=== PATIENT | female | born 1935 | race Caucasian/White ===

== ENCOUNTER 2017-10-10 19:33 | Inpatient (IN) | payer MEDICARE, OTHER ==
[2017-10-10] MEDS ORDERED: NS 0.9% 1000 ML*IV.FLUID IV ONE (20:15)
[2017-10-10] MEDS ORDERED: Azithromycin IV(*) 500 MG in NS 0.9% 250 ML* 250 ML IVPB ONE (20:17)
[2017-10-10] MEDS ORDERED: methylPREDNISolone 125 MG* 2 ML VIAL IV ONE (20:17)
[2017-10-10] MEDS ORDERED: cefTRIAXone(*) 1 GM in NS 0.9% 50 ML* 50 ML IVPB ONE (20:17)
[2017-10-10] MEDS ORDERED: Albuterol/Ipratropium NEB.SOL* Albuterol 2.5 MG/Ipratropium 0.5 MG 3 ML INH ONE (20:17)
[2017-10-10 20:51] LABS: ABS Basophils 0 10^3/ul (0-0.2); ABS Eosinophils 0 10^3/ul (0-0.6); ABS Lymphocytes 0.6 10^3/ul (1.0-4.8); ABS Monocytes 0.6 10^3/ul (0-0.8); ABS Neutrophils 6.2 10^3/ul (1.5-7.7); ABS Nucleated RBC 0 10^3/ul; Eosinophil % 0.1 % (0-6); Hematocrit 37 % (35-47); Lymphocyte % 7.5 % (25-47); Mean Corpuscular HGB Conc 35 g/dl (31-36); Mean Corpuscular Hemoglobin 33 pg (27-31); Mean Corpuscular Volume 93 fL (80-97); Mean Platelet Volume 8 um3 (7.4-10.4); Nucleated Red Blood Cells % 0.1; Platelet Count 190 10^3/ul (150-450); Red Cell Distribution Width 13 % (10.5-15); White Blood Count 7.4 10^3/ul (3.5-10.8)
[2017-10-10 21:00] LABS: INR 0.91 (0.77-1.02)
[2017-10-10 21:03] LABS: EGFR Non-African American 102.1 (>60)
--- NOTE | 2017-10-10 21:08 | RAD ---
HISTORY: Shortness of breath, cough COMPARISONS: August 01, 2016 VIEWS: 1: frontal portable view of the chest at 8:28 PM FINDINGS: LINES AND TUBES: None. CARDIOMEDIASTINAL SILHOUETTE: The cardiac silhouette is enlarged. The cardiomediastinal silhouette is otherwise normal for portable technique. PLEURA: The costophrenic angles are sharp. No pleural abnormalities are noted. LUNG PARENCHYMA: There is hyperinflation. ABDOMEN: The upper abdomen is clear. There is no subphrenic gas. BONES AND SOFT TISSUES: No bone or soft tissue abnormalities are noted. IMPRESSION: 1. COPD. 2. CARDIOMEGALY.
[2017-10-10] MEDS ORDERED: Aspirin Low Dose CHEW TAB* 81 MG PO ONE (21:12)
[2017-10-10] MEDS ORDERED: Oseltamivir CAP* 75 MG CAP PO ONE (21:25)
--- NOTE | 2017-10-10 21:32 | ED ---
Bret Norman Sixian, scribed for Owen Hagan MD on 10/10/17 at 2015 . Shortness of Breath - History of Current Complaint Chief Complaint: EDUpperRespComplaint Time Seen by Provider: 10/10/17 19:41 Hx Obtained From: Patient Onset/Duration: Gradual Onset, Lasting Weeks, Still Present Aggrevating Factors: Nothing Alleviating Factors: Nothing Associated Signs & Symptoms: Chest Pain w/Cough, Fever, Chills - Allergy/Home Medications Allergies/Adverse Reactions: Allergies Allergy/AdvReac Type Severity Reaction Status Date / Time MS Vitamin B12 [Vitamin B12] Allergy Severe Rash, Verified 10/10/17 19:58 CELLULITIS MS Carbamazepine Allergy Intermediate Hives Verified 10/10/17 19:58 [Carbamazepine] MS Simvastatin [From Zocor] Allergy Intermediate Hives Verified 10/10/17 19:58 MS Atorvastatin Allergy Hives Verified 10/10/17 19:58 [Atorvastatin] ALL STATINS Allergy Hives Uncoded 10/10/17 19:58 PMH/Surg Hx/FS Hx/Imm Hx Endocrine/Hematology History: Denies: Hx Diabetes Cardiovascular History: Reports: Hx Angina, Hx Coronary Artery Disease - CONTROL WITH MEDS, Hx Hypercholesterolemia, Hx Myocardial Infarction, Hx Valvular Heart Disease, Other Cardiovascular Problems/Disorders - 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 1979 HYSTERECTOMY, [facility]. 1981 BILATERAL SALPINGO-OOPHORECTOMY, [facility]. 2010 [place]ARDIAC [place]ER[place] WITH 2 ST[place]AC[place] [facility] [place]est[place] Reactions: No - Immunization History Date of Influenza Vaccine: did not receive Infectious Disease History: No Infectious Disease History: Denies: Traveled Outside the [place] in Last 30 Days - Family History Known Family History: Positive: Cardiac Disease, Hypertension - Social History Alcohol Use: Daily Alcohol Amount: 2 DRINKS PER DAY Substance Use Type: Reports: None Hx Tobacco Use: Yes Smoking Status (MU): Light Every Day Tobacco Smoker Type: Cigarettes Amount Used/How Often: LESS THAN 1/2 PPD Length of Time of Smoking/Using Tobacco: 60 YEARS Have You Smoked in the Last Year: Yes Review of Systems Positive: Chills. Negative: Fever Positive: Shortness Of Breath, Cough Positive: Other - sore chest Musculoskeletal: Negative - ankle swelling Positive: Other - sore chest Positive: Headache All Other Systems Reviewed And Are Negative: Yes Physical Exam - Summary Physical Exam Summary: General: Mildly ill appearing, no pain distress Skin: warm, color reflects adequate perfusion, dry Head: normal Eyes: EOMI, MIKE ENT: normal Neck: supple, nontender Respiratory: CTA, breath sounds present, Rhonchi greater on L than on R Mild respiratory distress Cardiovascular: RRR Abdomen: soft, nontender Bowel: present Musculoskeletal: normal, strength/ROM intact Neurological: normal, sensory/motor intact, A&O x3 Psychological: affect/mood appropriate Triage Information Reviewed: Yes Vital Signs On Initial Exam: Initial Vitals Temp Pulse Resp BP Pulse Ox 99.8 F 89 20 111/68 93 10/10/17 19:40 10/10/17 19:40 10/10/17 19:40 10/10/17 19:40 10/10/17 19:40 Vital Signs Reviewed: Yes Diagnostics - Vital Signs Vital Signs Temp Pulse Resp BP Pulse Ox 10/10/17 20:00 81 23 127/108 93 10/10/17 19:58 86 90 10/10/17 19:57 111/68 10/10/17 19:40 99.8 F 89 20 111/68 93 - Laboratory Lab Results: Lab Results 10/10/17 10/10/17 10/10/17 Range/Units 20:30 20:30 20:30 WBC 7.4 (3.5-10.8) 10^3/ul RBC 4.00 (4.0-5.4) 10^6/ul Hgb 13.0 (12.0-16.0) g/dl Hct 37 (35-47) % MCV 93 (80-97) fL MCH 33 H (27-31) pg MCHC 35 (31-36) g/dl RDW 13 (10.5-15) % Plt Count 190 (150-450) 10^3/ul MPV 8 (7.4-10.4) um3 Neut % (Auto) 83.5 H (38-83) % Lymph % (Auto) 7.5 L (25-47) % [place] % (Auto) 8.5 H (0-7) % Eos % (Auto) 0.1 (0-6) % Baso % (Auto) 0.4 (0-2) % Absolute Neuts (auto) 6.2 (1.5-7.7) 10^3/ul Absolute Lymphs (auto) 0.6 L (1.0-4.8) 10^3/ul Absolute Monos (auto) 0.6 (0-0.8) 10^3/ul Absolute Eos (auto) 0 (0-0.6) 10^3/ul Absolute Basos (auto) 0 (0-0.2) 10^3/ul Absolute Nucleated RBC 0 10^3/ul Nucleated RBC % 0.1 INR (Anticoag Therapy) 0.91 (0.77-1.02) APTT 26.5 (26.0-36.3) seconds Sodium 130 L (133-145) mmol/L Potassium 2.8 L (3.5-5.0) mmol/L Chloride 92 L (101-111) mmol/L Carbon Dioxide 27 (22-32) mmol/L Anion Gap 11 (2-11) mmol/L BUN 15 (6-24) mg/dL Creatinine 0.57 (0.51-0.95) mg/dL Est GFR ( Amer) 131.2 (>60) Est GFR (Non-Af Amer) 102.1 (>60) BUN/Creatinine Ratio 26.3 H (8-20) Glucose 157 H (70-100) mg/dL Lactic Acid (0.5-2.0) mmol/L Calcium 8.7 (8.6-10.3) mg/dL Total Bilirubin 1.00 (0.2-1.0) mg/dL AST 30 (13-39) U/L ALT 25 (7-52) U/L Alkaline Phosphatase 106 H (34-104) U/L Troponin I 0.05 H* (<0.04) ng/mL C-Reactive Protein 145.48 H (< 5.00) mg/L B-Natriuretic Peptide ( - 100) pg/mL Total Protein 6.7 (6.4-8.9) g/dL Albumin 3.4 (3.2-5.2) g/dL Globulin 3.3 (2-4) g/dL Albumin/Globulin Ratio 1.0 (1-3) Lipase < 10 L (11.0-82.0) U/L 10/10/17 10/10/17 Range/Units 20:30 20:30 WBC (3.5-10.8) 10^3/ul RBC (4.0-5.4) 10^6/ul Hgb (12.0-16.0) g/dl Hct (35-47) % MCV (80-97) fL MCH (27-31) pg MCHC (31-36) g/dl RDW (10.5-15) % Plt Count (150-450) 10^3/ul MPV (7.4-10.4) um3 Neut % (Auto) (38-83) % Lymph % (Auto) (25-47) % [place] % (Auto) (0-7) % Eos % (Auto) (0-6) % Baso % (Auto) (0-2) % Absolute Neuts (auto) (1.5-7.7) 10^3/ul Absolute Lymphs (auto) (1.0-4.8) 10^3/ul Absolute Monos (auto) (0-0.8) 10^3/ul Absolute Eos (auto) (0-0.6) 10^3/ul Absolute Basos (auto) (0-0.2) 10^3/ul Absolute Nucleated RBC 10^3/ul Nucleated RBC % INR (Anticoag Therapy) (0.77-1.02) APTT (26.0-36.3) seconds Sodium (133-145) mmol/L Potassium (3.5-5.0) mmol/L Chloride (101-111) mmol/L Carbon Dioxide (22-32) mmol/L Anion Gap (2-11) mmol/L BUN (6-24) mg/dL Creatinine (0.51-0.95) mg/dL Est GFR ( Amer) (>60) Est GFR (Non-Af Amer) (>60) BUN/Creatinine Ratio (8-20) Glucose (70-100) mg/dL Lactic Acid 1.8 (0.5-2.0) mmol/L Calcium (8.6-10.3) mg/dL Total Bilirubin (0.2-1.0) mg/dL AST (13-39) U/L ALT (7-52) U/L Alkaline Phosphatase (34-104) U/L Troponin I (<0.04) ng/mL C-Reactive Protein (< 5.00) mg/L B-Natriuretic Peptide 448 H ( - 100) pg/mL Total Protein (6.4-8.9) g/dL Albumin (3.2-5.2) g/dL Globulin (2-4) g/dL Albumin/Globulin Ratio (1-3) Lipase (11.0-82.0) U/L Result Diagrams: 10/10/17 20:30 10/10/17 20:30 Lab Statement: Any lab studies that have been ordered have been reviewed, and results considered in the medical decision making process. - Radiology CXR Radiology Interpretation Completed By: Radiologist - 1. COPD. 2. CARDIOMEGALY. ED physician has reviewed this radiology report. - EKG 1948 Cardiac Rate: NL EKG Rhythm: Sinus Rhythm - 91 BPM EKG Interpretation: Multiple PVC Course/Dx - Course Course Of Treatment: BP noted and advised to follow up with PCP. Medications reviewed. Allergies noted. ADMIT HOSPITALIST. CRITICAL CARE TIME LESS THAN 30 MINUTES. - Diagnoses Provider Diagnoses: Bronchitis with bronchospasm, Hypoxia, Chest pain, Elevated troponin Discharge - Discharge Plan Condition: Stable Disposition: ADMITTED TO [facility] Referrals: Lorie Warren MD [Primary Care Provider] - Additional Instructions: RETURN TO THE EMERGENCY DEPARTMENT FOR CHANGING OR WORSENING SYMPTOMS. The documentation as recorded by the Bret byrne Sixian accurately reflects the service I personally performed and the decisions made by , Owen Hagan MD.
[2017-10-10] MEDS ORDERED: NS 0.9% 1000 ML* 1,000 ML IV ONE (21:36)
[2017-10-10] MEDS ORDERED: Albuterol/Ipratropium NEB.SOL* Albuterol 2.5 MG/Ipratropium 0.5 MG 3 ML INH PRN (22:45)
[2017-10-11] MEDS: Enoxaparin(*) 40 MG/0.4 ML SYR SUBCUT SCH ×2 (01:24→22:09)
[2017-10-11] MEDS: Phenytoin CAP(*) 100 MG CAP.ER PO SCH ×3 (01:25→22:06)
[2017-10-11] MEDS: Potassium Chlor TAB* 20 MEQ TAB.ER PO SCH ×3 (01:25→22:06)
[2017-10-11 03:48] LABS: Urine Appearance Clear; Urine Blood 1+ (Negative); Urine Color Yellow; Urine Ketones Negative (Negative); Urine Protein Negative (Negative); Urine Urobilinogen Negative (Negative)
[2017-10-11] MEDS: methylPREDNISolone SOD 40 MG* 1 ML VIAL IV SCH ×2 (07:05→19:15)
[2017-10-11] MEDS: Aspirin EC Low Dose* 81 MG TAB.EC PO SCH (08:54)
[2017-10-11] MEDS: Lisinopril TAB* 5 MG PO SCH ×2 (08:54→22:07)
[2017-10-11] MEDS: Ezetimibe TAB* 10 MG PO SCH (08:54)
[2017-10-11] MEDS: Metoprolol Succinate XL TAB* 25 MG PO SCH ×2 (08:54→22:07)
[2017-10-11] MEDS: Oseltamivir CAP* 75 MG CAP PO SCH ×2 (08:55→22:07)
--- NOTE | 2017-10-11 14:10 | PN ---
Subjective Date of Service: 10/11/17 Interval History: Denies chest pain. Denies abd pain. n/v/d c/o shortness of breath, states improved since yesterday. states that she had a coughing episode during the night but coughing seems to better this AM. Family History: Unchanged from Admission Social History: Unchanged from Admission Past Medical History: Unchanged from Admission Objective Active Medications: Albuterol/Ipratropium (Duoneb (Albuterol 2.5 Mg/Ipratropium 0.5 Mg)) 1 neb INH Q4H PRN PRN Reason: SOB/WHEEZING Aspirin (Aspirin Ec Low Dose*) 81 mg PO DAILY [facility] Last Admin: 10/11/17 08:54 Dose: 81 mg Ezetimibe (Zetia Tab*) 10 mg PO QAM [facility] Last Admin: 10/11/17 08:54 Dose: 10 mg Enoxaparin Sodium (Lovenox(*)) 40 mg SUBCUT Q24H [facility] Last Admin: 10/11/17 01:24 Dose: 40 mg Azithromycin 500 mg/ Dextrose 250 mls @ 250 mls/hr IVPB Q24H [facility] Ceftriaxone Sodium 1 gm/ (Sodium Chloride) 50 mls @ 200 mls/hr IVPB Q24H [facility] Lisinopril (Prinivil Tab*) 5 mg PO BID [facility] Last Admin: 10/11/17 08:54 Dose: 5 mg Methylprednisolone Sodium Succinate (Solu-Medrol 40 Mg) 80 mg IV Q12H [facility] Last Admin: 10/11/17 07:05 Dose: 80 mg Metoprolol Succinate (Toprol Xl Tab*) 25 mg PO BID [facility] Last Admin: 10/11/17 08:54 Dose: 25 mg Oseltamivir Phosphate (Tamiflu Cap*) 75 mg PO BID [facility] Last Admin: 10/11/17 08:55 Dose: 75 mg Phenytoin Sodium (Dilantin Cap(*)) 100 mg PO BID [facility] Last Admin: 10/11/17 08:55 Dose: 100 mg Potassium Chloride (Klor Con Er Tab*) 20 meq PO BID [facility] Last Admin: 10/11/17 08:55 Dose: 20 meq Vital Signs - 8 hr 10/11/17 10/11/17 10/11/17 08:00 08:55 12:24 Temperature 98.5 F 98.8 F Pulse Rate 64 66 Respiratory 20 20 18 Rate Blood Pressure 107/51 113/63 (mmHg) O2 Sat by Pulse 96 97 100 Oximetry Oxygen Devices in Use Now: Nasal Cannula Appearance: appears comfortable, no respiratory distress Eyes: No Scleral Icterus Ears/Nose/Mouth/Throat: Clear Oropharnyx, Mucous Membranes Moist Neck: NL Appearance and Movements; NL JVP, Trachea Midline Respiratory: Symmetrical Chest Expansion and Respiratory Effort, - - diminished with crackles to bilat bases Cardiovascular: NL Sounds; No Murmurs; No JVD, No Edema Abdominal: NL Sounds; No Tenderness; No Distention Extremities: No Edema, No Clubbing, Cyanosis Skin: No Rash or Ulcers Neurological: Alert and Oriented x 3, NL Muscle Strength and Tone Nutrition: Taking PO's Result Diagrams: 10/10/17 20:30 10/11/17 05:26 Additional Lab and Data: Lab Results 10/10/17 10/10/17 10/10/17 Range/Units 20:30 20:30 20:30 WBC 7.4 (3.5-10.8) 10^3/ul RBC 4.00 (4.0-5.4) 10^6/ul Hgb 13.0 (12.0-16.0) g/dl Hct 37 (35-47) % MCV 93 (80-97) fL MCH 33 H (27-31) pg MCHC 35 (31-36) g/dl RDW 13 (10.5-15) % Plt Count 190 (150-450) 10^3/ul MPV 8 (7.4-10.4) um3 Neut % (Auto) 83.5 H (38-83) % Lymph % (Auto) 7.5 L (25-47) % [place] % (Auto) 8.5 H (0-7) % Eos % (Auto) 0.1 (0-6) % Baso % (Auto) 0.4 (0-2) % Absolute Neuts (auto) 6.2 (1.5-7.7) 10^3/ul Absolute Lymphs (auto) 0.6 L (1.0-4.8) 10^3/ul Absolute Monos (auto) 0.6 (0-0.8) 10^3/ul Absolute Eos (auto) 0 (0-0.6) 10^3/ul Absolute Basos (auto) 0 (0-0.2) 10^3/ul Absolute Nucleated RBC 0 10^3/ul Nucleated RBC % 0.1 INR (Anticoag Therapy) 0.91 (0.77-1.02) APTT 26.5 (26.0-36.3) seconds Sodium 130 L (133-145) mmol/L Potassium 2.8 L (3.5-5.0) mmol/L Chloride 92 L (101-111) mmol/L Carbon Dioxide 27 (22-32) mmol/L Anion Gap 11 (2-11) mmol/L BUN 15 (6-24) mg/dL Creatinine 0.57 (0.51-0.95) mg/dL Est GFR ( Amer) 131.2 (>60) Est GFR (Non-Af Amer) 102.1 (>60) BUN/Creatinine Ratio 26.3 H (8-20) Glucose 157 H (70-100) mg/dL Lactic Acid (0.5-2.0) mmol/L Calcium 8.7 (8.6-10.3) mg/dL Total Bilirubin 1.00 (0.2-1.0) mg/dL AST 30 (13-39) U/L ALT 25 (7-52) U/L Alkaline Phosphatase 106 H (34-104) U/L Troponin I 0.05 H* (<0.04) ng/mL C-Reactive Protein 145.48 H (< 5.00) mg/L B-Natriuretic Peptide ( - 100) pg/mL Total Protein 6.7 (6.4-8.9) g/dL Albumin 3.4 (3.2-5.2) g/dL Globulin 3.3 (2-4) g/dL Albumin/Globulin Ratio 1.0 (1-3) Lipase < 10 L (11.0-82.0) U/L 10/10/17 10/10/17 Range/Units 20:30 20:30 WBC (3.5-10.8) 10^3/ul RBC (4.0-5.4) 10^6/ul Hgb (12.0-16.0) g/dl Hct (35-47) % MCV (80-97) fL MCH (27-31) pg MCHC (31-36) g/dl RDW (10.5-15) % Plt Count (150-450) 10^3/ul MPV (7.4-10.4) um3 Neut % (Auto) (38-83) % Lymph % (Auto) (25-47) % [place] % (Auto) (0-7) % Eos % (Auto) (0-6) % Baso % (Auto) (0-2) % Absolute Neuts (auto) (1.5-7.7) 10^3/ul Absolute Lymphs (auto) (1.0-4.8) 10^3/ul Absolute Monos (auto) (0-0.8) 10^3/ul Absolute Eos (auto) (0-0.6) 10^3/ul Absolute Basos (auto) (0-0.2) 10^3/ul Absolute Nucleated RBC 10^3/ul Nucleated RBC % INR (Anticoag Therapy) (0.77-1.02) APTT (26.0-36.3) seconds Sodium (133-145) mmol/L Potassium (3.5-5.0) mmol/L Chloride (101-111) mmol/L Carbon Dioxide (22-32) mmol/L Anion Gap (2-11) mmol/L BUN (6-24) mg/dL Creatinine (0.51-0.95) mg/dL Est GFR ( Amer) (>60) Est GFR (Non-Af Amer) (>60) BUN/Creatinine Ratio (8-20) Glucose (70-100) mg/dL Lactic Acid 1.8 (0.5-2.0) mmol/L Calcium (8.6-10.3) mg/dL Total Bilirubin (0.2-1.0) mg/dL AST (13-39) U/L ALT (7-52) U/L Alkaline Phosphatase (34-104) U/L Troponin I (<0.04) ng/mL C-Reactive Protein (< 5.00) mg/L B-Natriuretic Peptide 448 H ( - 100) pg/mL Total Protein (6.4-8.9) g/dL Albumin (3.2-5.2) g/dL Globulin (2-4) g/dL Albumin/Globulin Ratio (1-3) Lipase (11.0-82.0) U/L Assess/Plan/Problems-Billing Assessment: Ms. Manzanares is a 81 y.o female that presented to the emergency room for evaluation of increased shortness of breath and cough. - Patient Problems (1) COPD exacerbation Current Visit: No Status: Acute Code(s): J44.1 - CHRONIC OBSTRUCTIVE PULMONARY DISEASE W (ACUTE) EXACERBATION SNOMED Code(s): 395418976442803 Comment: ~Will continue nebulizers as needed for shortness of breath ~ will continue Solumedrol IV Q hours~ will re-evaluate in AM could change to PO steroids ~ will continue Azithromycin 500 mg IVPB and Ceftriaxone ~ will reevaluate in the AM could change to PO (2) Exposure to influenza Current Visit: Yes Status: Acute Code(s): Z20.828 - CONTACT W AND EXPOSURE TO OTH VIRAL COMMUNICABLE DISEASES SNOMED Code(s): 936865001 Comment: tested positive for Flu ~ will treat with tamiflu 75 mg po BID for 5 days (3) CAD (coronary artery disease) Current Visit: No Status: Chronic Code(s): I25.10 - ATHSCL HEART DISEASE OF [place] CORONARY ARTERY W/O ANG PCTRS SNOMED Code(s): 27605496 Comment: Elevated troponin ~ denies chest pain ~ suspect this is related to demand ischemia r/t to her respiratory illness/ compromise ~ will repeat EKG and Troponin (4) Tobacco abuse Current Visit: No Status: Chronic Code(s): Z72.0 - TOBACCO USE SNOMED Code (s): 020308706 Comment: Patient advised to quit smoking and avoid second hand smoke. (5) Elevated troponin Current Visit: Yes Status: Acute Code(s): R74.8 - ABNORMAL LEVELS OF OTHER SERUM ENZYMES SNOMED Code(s): 669957935 Comment: ~Suspect this is related to demand ischemia related to her ongoing illness~ denies any chest pain at this time. Will add a troponin to this AM labwork ~ down to 0.04 from 0.05 Repeat EKG ~ WNL SR 60 (6) Hypokalemia Current Visit: Yes Status: Acute Code(s): E87.6 - HYPOKALEMIA SNOMED Code( s): 28357811 Comment: ~Potassium 3.4 today ~ will continue Potassium 20 meq BID and give one time dose of 20 meq given her cardiac history we would like to maintain a level at 4.0 (7) DVT prophylaxis Current Visit: No Status: Acute Priority: Medium Code(s): NFX1912 - SNOMED Code(s): 600926821 Comment: Lovenox 40 mg SQ daily (8) Full code status Current Visit: Yes Status: Acute Code(s): Z78.9 - OTHER SPECIFIED HEALTH STATUS SNOMED Code(s): 191799028 Status and Disposition: inpatient
[2017-10-11] MEDS ORDERED: Potassium Chlor TAB* 20 MEQ TAB.ER PO ONE (14:24)
--- NOTE | 2017-10-11 20:14 | HP ---
CC: Dr. Cantor; Dr. Milligan ADMISSION HISTORY AND PHYSICAL: DATE OF ADMISSION: 10/10/17 CHIEF COMPLAINT: Cough. HISTORY OF PRESENT ILLNESS: Ms. Manzanares is an 81-year-old woman, who has been coughing and short of breath for 2 weeks. The shortness of breath progressed and she came to the emergency department with her . She states her has been sick for 3 weeks and he is currently in the process of being admitted to the hospital for positive influenza A and COPD exacerbation. She denies taking the flu shot this year or any year for that matter. The patient is mainly short of breath with exertion, but she becomes short of breath at rest. The cough is largely nonproductive. She denies any chest pain. The patient has been smoking up to about 2 weeks ago, but has quit because of this illness. PAST MEDICAL HISTORY: Includes emphysema and coronary artery disease with 2 stents in the past. PAST SURGICAL HISTORY: Appendectomy. MEDICATIONS ON ADMISSION: 1. Albuterol/ipratropium nebulizer q.4 hours as needed. 2. Aspirin 81 mg p.o. q. day. 3. Zetia 10 mg p.o. q.a.m. 4. Lisinopril 5 mg p.o. b.i.d. 5. Toprol- XL 25 mg p.o. b.i.d. 6. Phenytoin extended release 100 mg p.o. b.i.d. ALLERGIES: CARBAMAZEPINE, VITAMIN B12, SIMVASTATIN, ATORVASTATIN. FAMILY HISTORY: Notable for father of stroke. Sister had metastatic cancer, unknown primary. Mother of natural causes at age 84. 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 She is , with 2 children. She smoked half pack a day for many years until 2 weeks ago up to a pack a day at times. Drinks alcohol occasionally. No recreational drugs. REVIEW OF SYSTEMS: The patient has felt feverish, but has not measured temperature. The patient denies any chest pain or palpitations. The patient denies any hemoptysis. The patient has upper abdominal pain with coughing in the last few days. Denies any nausea, vomiting, or diarrhea. Remainder of her 14- point review of systems is negative other than mentioned in HPI. PHYSICAL EXAMINATION GENERAL: She is an older woman, in no acute distress. VITAL SIGNS: Temperature is 37.6, pulse 87, respirations 23, blood pressure is 132/110, O2 sat is 95%. HEENT: Head is normocephalic, atraumatic. Sclerae anicteric. Pupils are equal , round, and reactive to light and accommodation. Oropharynx is moist, no lesions. NECK: No JVD or carotid bruits. No thyromegaly. LUNGS: Have rales at the right base and diminished breath sounds throughout. HEART: Regular rate and rhythm without murmurs or gallops. ABDOMEN: Soft, nontender, positive bowel sounds. No hepatosplenomegaly. EXTREMITIES: No peripheral edema. Dorsalis pedis pulses 1+ bilaterally. NEUROLOGIC: Cranial nerves II through XII are intact. Motor strength is 5/5 throughout. Deep tendon reflexes are symmetric. SKIN: Exam notable for raised erythematous 3 x 6 cm lesion on the right nur with scaling, I would describe it as a psoriaform rash. DIAGNOSTIC STUDIES/LAB DATA: Sodium 130, potassium 3.8, chloride 92, bicarb 27 , BUN 15, creatinine 0.57, glucose 157, calcium 8.7. AST 30, ALT 25. Procalcitonin 0.2. Lipase less than 10. Troponin 0.05. CRP 1.45. BNP 448. White count 7.4, hemoglobin 13.0, hematocrit 37%, platelets are 190. PTT is 26.5, INR is 0.91. EKG shows normal sinus rhythm, multifocal PVCs with a short run of wide complex tachycardia, likely a VT versus an intermittent intraventricular conduction delay. Chest x-ray shows COPD and cardiomegaly, but no infiltrates. ASSESSMENT AND PLAN: The patient appears to have influenza with pneumonia. Her has documented influenza. So, we will start her on Tamiflu. She has rales in her lung exam, although chest x-ray does not show an infiltrate. So, she will be treated with ceftriaxone and azithromycin for community- acquired pneumonia. The patient also has a chronic obstructive pulmonary disease exacerbation and she has counseled to stay off cigarettes and start intravenous steroids for wheezing. She can also have nebulizers as needed. The patient has a mild troponin elevation. This is likely due to demand ischemia and not myocardial infarction. She will be monitored on telemetry and have serial troponins. The patient has hypokalemia. This will be repleted and rechecked. Code status of the patient was discussed. The patient would not want to be intubated, but would accept a brief period of cardiac resuscitation if necessary. DVT prophylaxis will be with subcutaneous Lovenox. She is high risk due to her pulmonary condition and age. [id number]/[facility] #: [id number] MTDD
[2017-10-11] MEDS: cefTRIAXone(*) 1 GM in NS 0.9% 50 ML* 50 ML IVPB SCH (20:15)
[2017-10-11] MEDS ORDERED: Azithromycin IV(*) 500 MG in D5W 250 ML BAG* 250 ML IVPB SCH (21:00)
[2017-10-11] MEDS ORDERED: Acetaminophen TAB* 325 MG PO PRN (21:55)
[2017-10-11] MEDS: Benzonatate CAP* 100 MG PO PRN (22:05)
[2017-10-12] MEDS: guaiFENesin LIQ* 100 MG/5 ML UDC PO PRN ×3 (03:37→22:18)
[2017-10-12 06:46] LABS: EGFR Non-African American 104.2 (>60)
[2017-10-12] MEDS: Metoprolol Succinate XL TAB* 25 MG PO SCH ×3 (07:59→21:03)
[2017-10-12] MEDS: Potassium Chlor TAB* 20 MEQ TAB.ER PO SCH (08:01)
[2017-10-12] MEDS: Oseltamivir CAP* 75 MG CAP PO SCH ×2 (08:01→21:03)
[2017-10-12] MEDS: Aspirin EC Low Dose* 81 MG TAB.EC PO SCH (08:01)
[2017-10-12] MEDS: Ezetimibe TAB* 10 MG PO SCH (08:01)
[2017-10-12] MEDS: methylPREDNISolone SOD 40 MG* 1 ML VIAL IV SCH ×2 (08:01→20:56)
[2017-10-12] MEDS: Lisinopril TAB* 5 MG PO SCH ×2 (08:02→21:03)
[2017-10-12] MEDS: Phenytoin CAP(*) 100 MG CAP.ER PO SCH ×2 (08:02→21:03)
--- NOTE | 2017-10-12 11:03 | PN ---
Subjective Date of Service: 10/12/17 Interval History: Patient seen and examined at bedside. Denies fever, chills, chest discomfort, N/ V/D. Pt states that she continues to have shortness of breath and a cough that has improved with robitussin. Pt states that she doesn't wear oxygen at home. Tele: Sinus kay, rate 40-70's Family History: Unchanged from Admission Social History: Unchanged from Admission Past Medical History: Unchanged from Admission Objective Active Medications: Acetaminophen (Tylenol Tab*) 650 mg PO Q6H PRN Reason: PAIN Albuterol/Ipratropium (Duoneb (Albuterol 2.5 Mg/Ipratropium 0.5 Mg)) 1 neb INH Q4H PRN Reason: SOB/WHEEZING Aspirin (Aspirin Ec Low Dose*) 81 mg PO DAILY DILIP Benzonatate (Tessalon Cap*) 100 mg PO BID PRN Reason: COUGH Ezetimibe (Zetia Tab*) 10 mg PO QAM DILIP Enoxaparin Sodium (Lovenox(*)) 40 mg SUBCUT Q24H DILIP Guaifenesin (Robitussin*) 5 ml PO Q4H PRN Reason: COUGH Azithromycin 500 mg/ Dextrose 250 mls @ 250 mls/hr IVPB Q24H DILIP Ceftriaxone Sodium 1 gm/ (Sodium Chloride) 50 mls @ 200 mls/hr IVPB Q24H DILIP Lisinopril (Prinivil Tab*) 5 mg PO BID DILIP Methylprednisolone Sodium Succinate (Solu-Medrol 40 Mg) 80 mg IV Q12H DILIP Metoprolol Succinate (Toprol Xl Tab*) 25 mg PO BID DILIP Oseltamivir Phosphate (Tamiflu Cap*) 75 mg PO BID DILIP Phenytoin Sodium (Dilantin Cap(*)) 100 mg PO BID DILIP Potassium Chloride (Klor Con Er Tab*) 20 meq PO BID DILIP Vital Signs - 8 hr 10/12/17 10/12/17 03:50 07:47 Temperature 97.5 F 97.3 F Pulse Rate 57 51 Respiratory 16 16 Rate Blood Pressure 126/65 138/64 (mmHg) O2 Sat by Pulse 98 100 Oximetry Oxygen Devices in Use Now: Nasal Cannula - 0.5L Appearance: NAD, laying in bed Respiratory: Symmetrical Chest Expansion and Respiratory Effort, Clear to Auscultation - , diminished Cardiovascular: NL Sounds; No Murmurs; No JVD, RRR Abdominal: NL Sounds; No Tenderness; No Distention Extremities: No Edema Skin: No Rash or Ulcers Neurological: Alert and Oriented x 3, NL Muscle Strength and Tone Lines/Tubes/Other Access: Clean, Dry and Intact Peripheral IV - site benign Nutrition: Taking PO's Result Diagrams: 10/10/17 20:30 10/12/17 06:05 Additional Lab and Data: Assess/Plan/Problems-Billing Assessment: Ms. Manzanares is a 81 y.o female with PMH significant for COPD and CAD s/p 2 cardiac stents who presented to the emergency room for evaluation of increased shortness of breath and cough. - Patient Problems (1) COPD exacerbation Code(s): J44.1 - CHRONIC OBSTRUCTIVE PULMONARY DISEASE W (ACUTE) EXACERBATION SNOMED Code(s): 509277229545873 Comment: - With suspected CAP - Continue nebulizers as needed for shortness of breath - Continue Solumedrol will change to PO in the AM - Continue Azithromycin (change to PO) and Ceftriaxone (2) Exposure to influenza Code(s): Z20.828 - CONTACT W AND EXPOSURE TO OTH VIRAL COMMUNICABLE DISEASES SNOMED Code(s): 300274699 Comment: - Influenza A/B negative, but suspected to have influenza - tested positive for influenza B - Continue tamiflu (3) Elevated troponin Code(s): R74.8 - ABNORMAL LEVELS OF OTHER SERUM ENZYMES SNOMED Code(s): 479384212 Comment: - Denies chest pain - Troponin 0.04, 0.05, 0.05, 0.04 - Suspect secondary to demand ischemia related to her ongoing illness (4) Hypokalemia Code(s): E87.6 - HYPOKALEMIA SNOMED Code(s): 37081844 Comment: - Resolved - Continue Potassium 20 meq BID, given her cardiac history maintain a level at 4.0 (5) CAD (coronary artery disease) Code(s): I25.10 - ATHSCL HEART DISEASE OF [place] CORONARY ARTERY W/O ANG PCTRS SNOMED Code(s): 76118942 Comment: - Asymptomatic - Continue betablocker, ASA and Zetia (6) Tobacco abuse Code(s): Z72.0 - TOBACCO USE SNOMED Code(s): 693094515 Comment: - Patient advised to quit smoking and avoid second hand smoke. (7) Trigeminal neuralgia Code(s): G50.0 - TRIGEMINAL NEURALGIA SNOMED Code(s): 75252427 Comment: - Continue Dilantin (8) HLD (hyperlipidemia) Code(s): E78.5 - HYPERLIPIDEMIA, UNSPECIFIED SNOMED Code(s): 87139385 Comment: - Continue Zetia (9) DVT prophylaxis Code(s): IIN6503 - SNOMED Code(s): 470034118 Comment: - Lovenox 40 mg SQ daily (10) Full code status Code(s): Z78.9 - OTHER SPECIFIED HEALTH STATUS SNOMED Code(s): 505172109 Status and Disposition: Inpatient. Discharge to home when medically stable.
[2017-10-12] MEDS: cefTRIAXone(*) 1 GM in NS 0.9% 50 ML* 50 ML IVPB SCH (20:55)
[2017-10-12] MEDS: Azithromycin TAB* 250 MG PO SCH (21:02)
[2017-10-12] MEDS: Potassium Chloride LIQUID* 20 MEQ PACKET PO SCH (21:02)
[2017-10-12] MEDS: Benzonatate CAP* 100 MG PO PRN (22:17)
[2017-10-12] MEDS: Enoxaparin(*) 40 MG/0.4 ML SYR SUBCUT SCH (22:18)
[2017-10-13] MEDS: Metoprolol Succinate XL TAB* 25 MG PO SCH ×2 (07:49→20:21)
[2017-10-13] MEDS: Lisinopril TAB* 5 MG PO SCH ×2 (08:28→20:21)
[2017-10-13] MEDS: Ezetimibe TAB* 10 MG PO SCH (08:28)
[2017-10-13] MEDS: Aspirin EC Low Dose* 81 MG TAB.EC PO SCH (08:28)
[2017-10-13] MEDS: predniSONE TAB* 50 MG PO SCH (08:28)
[2017-10-13] MEDS: Phenytoin CAP(*) 100 MG CAP.ER PO SCH ×2 (08:28→20:22)
[2017-10-13] MEDS: Oseltamivir CAP* 75 MG CAP PO SCH ×2 (08:28→20:22)
[2017-10-13] MEDS: Potassium Chloride LIQUID* 20 MEQ PACKET PO SCH (08:28)
[2017-10-13] MEDS: guaiFENesin LIQ* 100 MG/5 ML UDC PO PRN ×2 (14:19→21:53)
--- NOTE | 2017-10-13 14:35 | PN ---
Subjective Date of Service: 10/13/17 Interval History: Patient seen and examined at bedside. Denies fever, chills, chest discomfort, N/ V/D. Pt states that she has shortness of breath at baseline with exertion and her shortness of breath is similar to her baseline. Pt states that she still continues to have a cough. Tele: Sinus rhythm, rate 50-70's Family History: Unchanged from Admission Social History: Unchanged from Admission Past Medical History: Unchanged from Admission Objective Active Medications: Acetaminophen (Tylenol Tab*) 650 mg PO Q6H PRN Reason: PAIN Albuterol/Ipratropium (Duoneb (Albuterol 2.5 Mg/Ipratropium 0.5 Mg)) 1 neb INH Q4H PRN Reason: SOB/WHEEZING Aspirin (Aspirin Ec Low Dose*) 81 mg PO DAILY DILIP Azithromycin (Zithromax Tab*) 250 mg PO DAILY@2100 DILIP Benzonatate (Tessalon Cap*) 100 mg PO BID PRN Reason: COUGH Ezetimibe (Zetia Tab*) 10 mg PO QAM DILIP Enoxaparin Sodium (Lovenox(*)) 40 mg SUBCUT Q24H DILIP Guaifenesin (Robitussin*) 5 ml PO Q4H PRN Reason: COUGH Ceftriaxone Sodium 1 gm/ (Sodium Chloride) 50 mls @ 200 mls/hr IVPB Q24H DILIP Lisinopril (Prinivil Tab*) 5 mg PO BID DILIP Metoprolol Succinate (Toprol Xl Tab*) 25 mg PO BID DILIP Oseltamivir Phosphate (Tamiflu Cap*) 75 mg PO BID DILIP Phenytoin Sodium (Dilantin Cap(*)) 100 mg PO BID DILIP Potassium Chloride (Klor-Con Liquid*) 20 meq PO BID DILIP Prednisone (Deltasone Tab*) 50 mg PO DAILY DILIP Vital Signs - 8 hr 10/13/17 10/13/17 10/13/17 07:42 08:00 11:18 Temperature 97.7 F 97.9 F Pulse Rate 59 61 Respiratory 20 20 16 Rate Blood Pressure 123/69 143/70 (mmHg) O2 Sat by Pulse 98 96 Oximetry Oxygen Devices in Use Now: None Appearance: NAD, sitting up in bed Ears/Nose/Mouth/Throat: Mucous Membranes Moist Respiratory: Symmetrical Chest Expansion and Respiratory Effort, Clear to Auscultation Cardiovascular: NL Sounds; No Murmurs; No JVD, RRR Abdominal: NL Sounds; No Tenderness; No Distention Extremities: No Edema Skin: No Rash or Ulcers Neurological: Alert and Oriented x 3, NL Muscle Strength and Tone Lines/Tubes/Other Access: Clean, Dry and Intact Peripheral IV - site benign Nutrition: Taking PO's Result Diagrams: 10/10/17 20:30 10/12/17 06:05 Additional Lab and Data: Assess/Plan/Problems-Billing Assessment: Ms. Manzanares is a 81 y.o female with PMH significant for COPD and CAD s/p 2 cardiac stents who presented to the emergency room for evaluation of increased shortness of breath and cough. - Patient Problems (1) COPD exacerbation Code(s): J44.1 - CHRONIC OBSTRUCTIVE PULMONARY DISEASE W (ACUTE) EXACERBATION SNOMED Code(s): 636106761280423 Comment: - With suspected CAP - Continue nebulizers as needed for shortness of breath - Continue Prednisone, Azithromycin (change to PO), and Ceftriaxone (2) Exposure to influenza Code(s): Z20.828 - CONTACT W AND EXPOSURE TO OTH VIRAL COMMUNICABLE DISEASES SNOMED Code(s): 160710801 Comment: - Influenza A/B negative, but suspected to have influenza - tested positive for influenza B - Continue tamiflu (3) Elevated troponin Code(s): R74.8 - ABNORMAL LEVELS OF OTHER SERUM ENZYMES SNOMED Code(s): 075589859 Comment: - Denies chest pain - Troponin 0.04, 0.05, 0.05, 0.04 - Suspect secondary to demand ischemia related to her ongoing illness (4) Hypokalemia Code(s): E87.6 - HYPOKALEMIA SNOMED Code(s): 99985636 Comment: - Resolved (5) CAD (coronary artery disease) Code(s): I25.10 - ATHSCL HEART DISEASE OF [place] CORONARY ARTERY W/O ANG PCTRS SNOMED Code(s): 64619485 Comment: - Asymptomatic - Continue betablocker, ASA and Zetia (6) Tobacco abuse Code(s): Z72.0 - TOBACCO USE SNOMED Code(s): 889747973 Comment: - Patient advised to quit smoking and avoid second hand smoke. (7) Trigeminal neuralgia Code(s): G50.0 - TRIGEMINAL NEURALGIA SNOMED Code(s): 31349456 Comment: - Continue Dilantin (8) HLD (hyperlipidemia) Code(s): E78.5 - HYPERLIPIDEMIA, UNSPECIFIED SNOMED Code(s): 53036245 Comment: - Continue Zetia (9) DVT prophylaxis Code(s): ELO3283 - SNOMED Code(s): 422210527 Comment: - Lovenox 40 mg SQ daily (10) Full code status Code(s): Z78.9 - OTHER SPECIFIED HEALTH STATUS SNOMED Code(s): 195566949 Status and Disposition: Inpatient. Discharge to home when medically stable, suspect she will be ready for discharge to home in the AM.
[2017-10-13] MEDS: cefTRIAXone(*) 1 GM in NS 0.9% 50 ML* 50 ML IVPB SCH (20:14)
[2017-10-13] MEDS: Azithromycin TAB* 250 MG PO SCH (20:22)
[2017-10-13] MEDS: Benzonatate CAP* 100 MG PO PRN (21:53)
[2017-10-13] MEDS: Enoxaparin(*) 40 MG/0.4 ML SYR SUBCUT SCH (21:54)
[2017-10-14] MEDS: predniSONE TAB* 50 MG PO SCH (08:51)
[2017-10-14] MEDS: Oseltamivir CAP* 75 MG CAP PO SCH (08:51)
[2017-10-14] MEDS: Aspirin EC Low Dose* 81 MG TAB.EC PO SCH (08:51)
[2017-10-14] MEDS: Ezetimibe TAB* 10 MG PO SCH (08:51)
[2017-10-14] MEDS: Metoprolol Succinate XL TAB* 25 MG PO SCH (08:51)
[2017-10-14] MEDS: Lisinopril TAB* 5 MG PO SCH (08:51)
[2017-10-14] MEDS: Phenytoin CAP(*) 100 MG CAP.ER PO SCH (08:51)
--- NOTE | 2017-10-14 09:16 | PN ---
Subjective Date of Service: 10/14/17 Interval History: Patient seen and examined at bedside. Denies fever, chills, shortness of breath , chest discomfort, N/V/D. Pt states that she is feeling much better and is anxious for discharge to home today. Family History: Unchanged from Admission Social History: Unchanged from Admission Past Medical History: Unchanged from Admission Objective Active Medications: Acetaminophen (Tylenol Tab*) 650 mg PO Q6H PRN Reason: PAIN Albuterol/Ipratropium (Duoneb (Albuterol 2.5 Mg/Ipratropium 0.5 Mg)) 1 neb INH Q4H PRN Reason: SOB/WHEEZING Aspirin (Aspirin Ec Low Dose*) 81 mg PO DAILY DILIP Azithromycin (Zithromax Tab*) 250 mg PO DAILY@2100 DILIP Benzonatate (Tessalon Cap*) 100 mg PO BID PRN Reason: COUGH Ezetimibe (Zetia Tab*) 10 mg PO QAM DILIP Enoxaparin Sodium (Lovenox(*)) 40 mg SUBCUT Q24H DILIP Guaifenesin (Robitussin*) 5 ml PO Q4H PRN Reason: COUGH Ceftriaxone Sodium 1 gm/ (Sodium Chloride) 50 mls @ 200 mls/hr IVPB Q24H DILIP Lisinopril (Prinivil Tab*) 5 mg PO BID DILIP Metoprolol Succinate (Toprol Xl Tab*) 25 mg PO BID DILIP Oseltamivir Phosphate (Tamiflu Cap*) 75 mg PO BID DILIP Phenytoin Sodium (Dilantin Cap(*)) 100 mg PO BID DILIP Prednisone (Deltasone Tab*) 50 mg PO DAILY DILIP Oxygen Devices in Use Now: None Appearance: NAD, sitting up in a chair Ears/Nose/Mouth/Throat: Mucous Membranes Moist Respiratory: Symmetrical Chest Expansion and Respiratory Effort, Clear to Auscultation Cardiovascular: NL Sounds; No Murmurs; No JVD, RRR Abdominal: NL Sounds; No Tenderness; No Distention Extremities: No Edema Skin: No Rash or Ulcers Neurological: Alert and Oriented x 3, NL Muscle Strength and Tone Lines/Tubes/Other Access: Clean, Dry and Intact Peripheral IV - site benign Nutrition: Taking PO's Result Diagrams: 10/10/17 20:30 10/12/17 06:05 Additional Lab and Data: Assess/Plan/Problems-Billing Assessment: Ms. Manzanares is a 81 y.o female with PMH significant for COPD and CAD s/p 2 cardiac stents who presented to the emergency room for evaluation of increased shortness of breath and cough. - Patient Problems (1) COPD exacerbation Code(s): J44.1 - CHRONIC OBSTRUCTIVE PULMONARY DISEASE W (ACUTE) EXACERBATION SNOMED Code(s): 473886682479902 Comment: - With suspected CAP - Continue nebulizers as needed for shortness of breath - Continue Prednisone, Azithromycin, and Ceftriaxone (2) Exposure to influenza Code(s): Z20.828 - CONTACT W AND EXPOSURE TO OTH VIRAL COMMUNICABLE DISEASES SNOMED Code(s): 663537586 Comment: - Influenza A/B negative, but suspected to have influenza - tested positive for influenza B - Continue tamiflu (3) Elevated troponin Code(s): R74.8 - ABNORMAL LEVELS OF OTHER SERUM ENZYMES SNOMED Code(s): 243066481 Comment: - Denies chest pain - Troponin 0.04, 0.05, 0.05, 0.04 - Suspect secondary to demand ischemia related to her ongoing illness (4) Hypokalemia Code(s): E87.6 - HYPOKALEMIA SNOMED Code(s): 00341324 Comment: - Resolved (5) CAD (coronary artery disease) Code(s): I25.10 - ATHSCL HEART DISEASE OF [place] CORONARY ARTERY W/O ANG PCTRS SNOMED Code(s): 03656250 Comment: - Asymptomatic - Continue betablocker, ASA and Zetia (6) Tobacco abuse Code(s): Z72.0 - TOBACCO USE SNOMED Code(s): 551791340 Comment: - Patient advised to quit smoking and avoid second hand smoke. (7) Trigeminal neuralgia Code(s): G50.0 - TRIGEMINAL NEURALGIA SNOMED Code(s): 47267478 Comment: - Continue Dilantin (8) HLD (hyperlipidemia) Code(s): E78.5 - HYPERLIPIDEMIA, UNSPECIFIED SNOMED Code(s): 57190240 Comment: - Continue Zetia (9) DVT prophylaxis Code(s): QXP9838 - SNOMED Code(s): 167305610 (10) Full code status Code(s): Z78.9 - OTHER SPECIFIED HEALTH STATUS SNOMED Code(s): 539159767 Status and Disposition: Inpatient. Stable for discharge to home today.
[2017-10-14 09:42] VITALS: BP 132/69
[2017-10-14] MEDS ORDERED: cefTRIAXone(*) 1 GM in NS 0.9% 50 ML* 50 ML IVPB ONE (10:12)
[2017-10-14] MEDS ORDERED: Azithromycin TAB* 250 MG PO ONE (10:12)
--- NOTE | 2017-10-15 13:52 | DS ---
CC: Lorie Cantor MD * DISCHARGE SUMMARY: DATE OF ADMISSION: 10/10/17 DATE OF DISCHARGE: 10/14/17 ATTENDING PHYSICIAN: Luis Fernando Harris MD * (dictated by Arabella Araujo NP). PRIMARY CARE PROVIDER: Lorie Cantor MD PRIMARY DIAGNOSES: 1. Suspected influenza, unconfirmed by rapid flu swab. 2. Hypokalemia, resolved. 3. Hypertroponinemia, suspect secondary to demand ischemia. 4. Chronic obstructive pulmonary disease exacerbation. 5. Community-acquired pneumonia. SECONDARY DIAGNOSES: 1. History of coronary artery disease. 2. Tobacco abuse. 3. Trigeminal neuralgia. 4. Hyperlipidemia. STUDIES WHILE IN THE HOSPITAL: Chest x-ray on 10/10/17. Radiologist's impression: COPD, cardiomegaly. DISCHARGE MEDICATIONS: New home medications: 1. Tamiflu 75 mg oral twice daily for 2 more doses. 2. Prednisone 50 mg oral daily on 10/15/17, followed by 40 mg oral for 3 days, followed by 30 mg oral for 3 days, followed by 20 mg oral for 3 days, followed by 10 mg oral for 3 days, and then stop. Continued home medications: 1. Tessalon 100 mg oral twice daily as needed for cough. 2. Zetia 10 mg oral every morning. 3. Dilantin 100 mg oral twice daily. 4. Lisinopril 5 mg oral twice daily. 5. Metoprolol succinate XL 25 mg oral twice daily. 6. Aspirin 81 mg oral daily. 7. Albuterol/Atrovent nebs 1 neb inhalation every 4 hours as needed for shortness of breath. HISTORY OF PRESENT ILLNESS/HOSPITAL COURSE: Ms. Manzanares is an 81-year-old female with past medical history significant for COPD, coronary artery disease, status post previous cardiac stenting, who presented to the emergency room with her , complaining of coughing and shortness of breath for 2 weeks. The patient reported that her had also been sick for 3 weeks and he was also being admitted to the hospital for positive influenza B and COPD exacerbation. The patient did not receive a flu shot this year. She reported shortness of breath mostly with exertion, but also had complaints of shortness of breath at rest. Her cough was mostly nonproductive. She denied any chest pain. She had been smoking up until the onset of her symptoms approximately 2 weeks prior to her presentation, but had stopped smoking due to her acute illness. While in the emergency room, she had a chest x-ray showing no acute finding. She had an EKG showing a sinus rhythm and PVCs and short run of a wide complex tachycardia, likely V-tach versus an intermittent intraventricular conduction delay. Her procalcitonin was 0.2. Her troponin was 0.05. CRP 1.45. Hospitalists were asked to evaluate the patient for admission. During the patient's hospitalization, she was treated for influenza. Although she tested negative, it was felt that due to her having it, she likely also had it and tested and had a false negative. She was also treated for pneumonia with ceftriaxone and IV azithromycin. She was felt to have a community-acquired pneumonia. She also felt to have a COPD exacerbation, this was treated with azithromycin and initially IV steroids, they were converted to oral prednisone. She had nebulizer. She continued to complain of a cough, received Tessalon Perles and guaifenesin as needed for this. Additionally, she was noted to have a mildly elevated troponin, this peaked at 0.05, it was suspected to be secondary to demand ischemia in the setting of her acute illness. She also had an episode of hypokalemia that resolved. The patient was feeling better and ready for discharge to home. Ms. Manzanares is stable for discharge to home today. Vital signs are follows: Temperature 98.0, heart rate 61, respiratory rate 16, O2 sat 95% on room air, blood pressure 132/69. DISCHARGE PLAN: In regards to the patient's community-acquired pneumonia, she will receive a dose of IV ceftriaxone and IV azithromycin just prior to discharge, completing a 5-day course of antibiotics. I do not feel that she needs to be continued on antibiotics at discharge. She will be continued on a prednisone taper for her COPD exacerbation. She has been instructed to take 50 mg oral tomorrow morning, followed by 40 mg oral daily for 3 days, followed by 30 mg daily for 3 days, followed by 20 mg oral daily for 3 days, and 10 mg oral daily for 3 days and then stop. She will be continued on Tessalon Perles that she reports already having at home every 12 hours as needed for cough. Additionally for completion of her influenza, she needs to take 2 more doses of Tamiflu including 1 tonight and 1 in the morning. She has been resumed on her other usual medications. She has a followup appointment with Dr. Cantor on at 12:30 p.m. She has been asked to return to the emergency room for any increased shortness of breath above her baseline or chest discomfort. POINTS OF DISCUSSION AT FOLLOWUP: Please continue to encourage the patient to stop smoking. Consider sending her for Pulmonology consult if she continues to complain of shortness of breath. She is not currently on any maintenance treatment, she may benefit from being placed on such as Spiriva or Dulera. This is a summarized report of a complex medical history and hospital stay. For further details, please see the entire medical record. TIME SPENT: Time for this discharge was approximately 50 minutes, greater than half of that was spent with the patient and her discussing discharge plans and instructions. CONDITION ON DISCHARGE: Stable. ARABELLA PRITCHARD NP [id number]/[facility] #: [id number] ZAINA
== END 2017-10-14 12:00 | disposition home or self-care (01) | DRG 194 ==
LOC: ED 19:33 → MEDTELE 22:13
PROVIDERS: ADMIT Internal Medicine; ATTEND Internal Medicine
DX: J10.00 Influenza due to other identified influenza virus with unspecified type of pneumonia (principal); J44.1 Chronic obstructive pulmonary disease with (acute) exacerbation; I24.8 Other forms of acute ischemic heart disease; E87.6 Hypokalemia; R74.8 Abnormal levels of other serum enzymes; I25.10 Atherosclerotic heart disease of native coronary artery without angina pectoris; G50.0 Trigeminal neuralgia; E78.5 Hyperlipidemia, unspecified; F17.210 Nicotine dependence, cigarettes, uncomplicated; Z95.5 Presence of coronary angioplasty implant and graft; Z79.82 Long term (current) use of aspirin; Z79.899 Other long term (current) drug therapy; Z88.8 Allergy status to other drugs, medicaments and biological substances; Z82.3 Family history of stroke; Z80.9 Family history of malignant neoplasm, unspecified
CPT/HCPCS: 36415; 71045; 80048; 80053; 80185; 81003; 81015; 81270; 82668; 83605; 83690; 83735; 83880; 84145; 84484; 85025; 85610; 85730; 86140; 87040; 87502; 93005; 94640; 99285; 99406; A9270-GY; J0456; J0696; J1650; J2920; J2930; J7512

== ENCOUNTER 2017-12-14 11:45 | Observation (INO) | payer MEDICARE ==
[2017-12-14] MEDS ORDERED: Diazepam TAB(*) 5 MG ONE (12:38)
[2017-12-14] MEDS ORDERED: ceFAZolin 2 GM PREMIX (*) 2 GM/50 ML BAG IVPB ONE (13:00)
[2017-12-14] MEDS ORDERED: ceFAZolin VIAL 1 GM in NS *SYRINGE * * 10 ML ONE (13:00)
[2017-12-14] MEDS ORDERED: Lidocaine 1% INJ* 10 MG/ML 30 ML SDV ONE (13:09)
[2017-12-14] MEDS ORDERED: fentaNYL* 50 MCG/ML 2 ML VIAL (100 MCG VIAL) ONE (13:09)
[2017-12-14] MEDS ORDERED: Midazolam* 1 MG/ML 5 ML VIAL (5 MG) ONE (13:09)
[2017-12-14] MEDS ORDERED: oxyCODONE/Acetamin 5/325 MG* TAB PO PRN (14:36)
[2017-12-14] MEDS ORDERED: Acetaminophen TAB* 325 MG PO PRN (14:36)
--- NOTE | 2017-12-14 19:03 | RAD ---
INDICATION: Status post device implantation COMPARISON: Most recent chest x-ray dated October 10, 2017 TECHNIQUE: Single AP portable view of the chest was obtained. FINDINGS: Image quality is compromised due to the relative inferiority of a portable chest x-ray. The patient is status post left upper chest cardiac pacemaker with 2 leads overlying the heart. Surgical skin samantha are noted below the lateral left clavicle. The heart and mediastinum exhibit normal size and contour. Similar to prior chest x-rays the lungs appear hyperaerated. There is no pneumothorax. Visualized bones are normal for the patient's age. IMPRESSION: No acute finding status post left upper chest cardiac pacemaker implantation.
[2017-12-14] MEDS: Metoprolol Succinate XL TAB* 25 MG PO SCH (21:36)
[2017-12-14] MEDS: Lisinopril TAB* 5 MG PO SCH (21:36)
[2017-12-14] MEDS: Phenytoin CAP(*) 100 MG CAP.ER PO SCH (21:36)
[2017-12-14] MEDS: Heparin VIAL(*) 5000 UNITS/ML VIAL (FIVE THOUSAND) SUBCUT SCH (21:38)
[2017-12-15] MEDS: Heparin VIAL(*) 5000 UNITS/ML VIAL (FIVE THOUSAND) SUBCUT SCH (05:23)
[2017-12-15 07:42] VITALS: BP 134/73
[2017-12-15] MEDS: Lisinopril TAB* 5 MG PO SCH (08:55)
[2017-12-15] MEDS: Phenytoin CAP(*) 100 MG CAP.ER PO SCH (08:55)
[2017-12-15] MEDS: Metoprolol Succinate XL TAB* 25 MG PO SCH (08:55)
[2017-12-15] MEDS ORDERED: Aspirin EC TAB* 81 MG TAB.EC PO SCH (09:00)
[2017-12-15] MEDS ORDERED: Ezetimibe TAB* 10 MG PO SCH (09:00)
--- NOTE | 2017-12-15 09:46 | RAD ---
INDICATION: Status post left cardiac pacer implantation COMPARISON: Similar chest x-ray acquired December 14, 2017 TECHNIQUE: PA and lateral views of the chest were obtained. FINDINGS: Again seen is a left upper chest cardiac pacemaker with 2 leads overlying the heart. The heart and mediastinum are normal in size and contour. The lungs are hyperaerated. There is no pneumothorax. Visualized bones are normal for the patient's age. There is no radiographic evidence of free air beneath the diaphragm IMPRESSION: NO ACUTE CHEST X-RAY FINDINGS STATUS POST LEFT UPPER CHEST CARDIAC PACEMAKER IMPLANTATION.
--- NOTE | 2017-12-15 12:08 | OP ---
DATE OF OPERATION: 12/14/17 - ROOM #442 DATE OF : 37 SURGEON: Torey Barkley MD ANESTHESIA: Local anesthesia with conscious sedation. PRE-OP DIAGNOSIS: Tachy-kay syndrome, sick sinus syndrome. POST-OP DIAGNOSIS: Tachy-kay syndrome, sick sinus syndrome. OPERATIVE PROCEDURE: Dual chamber pacemaker implantation. ESTIMATED BLOOD LOSS: Nil. COMPLICATIONS: None. INDICATIONS: The patient is an 82-year-old female with a history of tachycardia , who has been followed by Dr. Milligan. The patient had a Holter monitor, which showed evidence of bradycardia, in addition to her history of tachycardia. Permanent pacemaker implantation was recommended based on the result of her Holter monitor. DESCRIPTION OF PROCEDURE: The patient was brought to the procedure room in a fasting state. Informed consent had been obtained prior to the procedure. All labs were reviewed. The patient was placed supine on the procedure table. Her left anterior chest was prepped and draped in usual fashion. 1% Lidocaine was for local anesthesia. Under echo guidance, the axillary vein was entered via a modified Seldinger technique and a guidewire was placed. A 3-cm incision was made in the pectoral area. Blunt dissection was carried down to the pectoral fascia. A small pocked was fashioned for the pacemaker. Over the guidewire, a 7 [place] sheath introducer was placed through which another guidewire was placed and then the sheath was removed. Over the first guidewire, a 7 [place] sheath introducer was placed through which a right ventricular lead was advanced to the RV apex. The right ventricular lead is a Medtronic model 5076, serial #[id number]. It had an R- wave sensitivity of 4.1, impedance 1240 Ohms, threshold 1 volt at 0.5 milliseconds. The ventricular lead was sutured with pectoral fascia. Over the second guidewire, a 7 [place] sheath introducer was placed through which a right atrial lead was advanced to the high right atrium The right atrial lead is a Medtronic model 5076, serial # [id number]. It had P- wave sensitivity of 2, impedance 576 Ohms, threshold 1.9 volt at 0.5 milliseconds. The atrial lead was sutured to the pectoral fascia. The pocket was flushed. The ventricular and atrial leads were attached appropriately to a generator. The generator is a Medtronic model W1DR01, serial #[id number]. The device was placed in the pocket. The surgical incision was closed in 3 layers. The device was tested via an external analyzer and noted to be functioning normally. [id number]/[facility] #: [id number] MTDD
--- NOTE | 2017-12-16 17:37 | DS ---
CC: Dr. Milligan; Dr. Lorie Cantor * DISCHARGE SUMMARY: DATE OF ADMISSION: 12/14/17 DATE OF DISCHARGE: 12/15/17 INDICATION FOR ADMISSION: Pacemaker implantation. Please see my admission history and physical for details of her presentation. Patient is an 82-year-old female, followed by Dr. Milligan, who is having episodes of tachycardia. Recent Holter monitor showed runs of tachycardia as well as bradycardia. Permanent pacemaker was recommended for maximization of medical therapy. Patient underwent dual chamber pacemaker implantation yesterday. She had a Medtronic dual chamber MRI device implanted. Please see that operative note for details. Patient was admitted to the hospital overnight. She was observed overnight. This morning, she underwent a chest x-ray and a pacemaker interrogation. Pacemaker was found to be functioning normally. Her chest x- ray was unremarkable. PHYSICAL EXAMINATION: Vital signs were stable. Height 68 inches, weight 128 pounds, blood pressure 130/84, respiratory rate is 18. She was afebrile. Lungs are clear to auscultation. Cardiac Exam: S1, S2 without any murmurs, rubs, or gallops. Her pacemaker site is stable. There was minimal ecchymosis. There is no hematoma. There is erythema. Pacemaker interrogation is an [place] XT from [employer]. Its atrial lead had a P - wave sensitivity of 3.6, impedance 399 ohms, threshold 0.5 volts at 0.4 milliseconds. Right ventricular lead had a sensing threshold of 6.4, impedance 779 ohms, threshold 0.5 volts at 0.4 milliseconds. She was in AFib 10% of the time. She is atrial paced 43% of the time. DISCHARGE MEDICATIONS: 1. Lisinopril 5 mg a day. 2. Metoprolol succinate 50 mg b.i.d. 3. Phenytoin sodium 100 mg a day. 4. Zetia 10 mg a day. 5. Keflex 500 mg 3 times a day for 3 days. 6. Aspirin 81 mg a day. FOLLOWUP: The patient will follow up in my office in 1 week. [id number]/[facility] #: [id number] MTDD
== END 2017-12-15 10:10 | disposition home or self-care (01) ==
LOC: CHICATH 11:45 → MEDTELE 14:37
PROVIDERS: ADMIT Specialist; ATTEND Specialist
DX: I49.5 Sick sinus syndrome (principal); R00.0 Tachycardia, unspecified; Z95.0 Presence of cardiac pacemaker; R42 Dizziness and giddiness; R00.2 Palpitations; I25.10 Atherosclerotic heart disease of native coronary artery without angina pectoris; Z72.0 Tobacco use; Z95.5 Presence of coronary angioplasty implant and graft; E78.5 Hyperlipidemia, unspecified; G50.0 Trigeminal neuralgia; L03.90 Cellulitis, unspecified; I25.2 Old myocardial infarction; I11.9 Hypertensive heart disease without heart failure
CPT/HCPCS: 33208; 71045; 71046; 93005; 99156; 99157; A9270-GY; C1785; C1898; G0378; J0690; J1644; J2250; J3010

== ENCOUNTER 2019-01-28 14:51 | Emergency (ER) | payer MEDICARE ==
--- OUTSIDE RECORDS SUMMARY | 2019-01-28 15:14 | XMS REPORT | Continuity of Care Document ---
:1935 External Reference #:[id number] Author Name Prashanth Penaloza MD Address [address] [place] [address] Care Team Providers Name Role Phone Lorie Cantor M.D., R.DMarilin Primary Care Physician Unavailable Payers Date Identification Numbers Payment Provider Subscriber Effective: 2014 Policy Number: [id number] [employer] Nuzhat Manzanares Expires: 2016 PayID: [id number] [employer] [address] [address] [place] [address] Policy Number: [id number] [employer] Medicare Ppo Nuzhat Manzanares Group Number: [id number] [address] PayID: [id number] [place] [address] Problems Active Problems Provider Date Trigeminal neuralgia Sierra Thakkar M.D. Onset: 12/19/2011 Family History Date Family Member(s) Observation Comments : (age 92 Years) Father due to Unknown Causes : (age 84 Years) Mother due to Unknown Causes First Sister due to lung cancer () Social History Type Date Description Comments Sex Unknown Lives With Spouse Lives With Víctor Manzanares Tobacco Use Start: Unknown Patient is a current cigarette smoker, smokes every day Tobacco Use Start: Unknown Currently smokes 1-5 Has smoked for 60 years Cigarettes Daily Smoking Status Reviewed: 09/28/18 Currently smokes 1-5 Has smoked for 60 years Cigarettes Daily ETOH Use Currently consumes alcohol 2 to 3 drinks a day Tobacco Use Start: Unknown Patient is a current 7-10 per day smoker, smokes every day Allergies, Adverse Reactions, Alerts Active Allergies Reaction Severity Comments Date Simvastatin rash 12/23/2011 Zocor 02/14/2014 Carbamazepine 02/14/2014 Vitamin B12 12/28/2015 Medications Active Medications SIG Qnty Indications Ordering Date Provider Omeprazole 1 by mouth every 20caps R10.9 Prashanth 01/24/[address] nichelle Penaloza MD Levofloxacin 1 po daily 7tabs J44.1 Lorie Cantor, 10/06/2018 500mg Tablets Fariha RCatina Benzonatate 1-2 by mouth 20caps Lorie Cantor, 09/27/2018 100mg Capsules three times a day Fariha RCatina as needed cough Sphygmomanometer monitor bp biw or 1units I10 [address] 05/20/2013 Aneroid as indicated, Fariha Thakkar [facility] recommend omron Phenytoin Sodium Take One Capsule 90caps G50.0 Lorie Cantor, 01/02/2012 Extended By Mouth Three John Fried 100mg Capsules Times A Day as Needed For Trigeminal Neuralgia Pain Aspir-[address] 12/19/[address] Bijan M.D. Zetia 1 po qd [place], 12/19/2011 10mg Tablets Johnna L Metoprolol Tartrate take two tablets [address] 12/19/2011 25mg by mouth twice Fariha Thakkar Tablets daily Nitroglycerin one tablet sl q [address] 12/19/2011 0.4mg Tablets min x 3 prn chest Fariha Thakkar Sub pain Lisinopril one po bid Maghaydah, 5mg Tablets MD Elise Joinerquvaishali Unknown 2.5mg Tablets Javier Charles, 120mg Caps ADELINE ROBLES 24HR History Medications Prednisone 1 tablet daily for 5tabs Ansley Hyman 09/28/2018 - 50mg 5 days with food Fariha Cordova 01/24/2019 Tablets for copd exacerbation Tizanidine HCL 1 by mouth every 10caps M54.5 Ansley Hyman 09/28/2018 - 4mg night at bedtime as Fariha Cordova 09/30/2018 Capsules Needed For Muscle Spasm Guaiatussin ac 5 milliliters by 118ml Lorie Cantor, 09/27/2018 - mouth tid as needed Fariha, R.D. 09/28/2018 100-10mg/5ML Syrup Prednisone 1 tab by mouth 3tabs J20.9 Prashanth 02/16/2018 - 50mg daily for 3 days MD Ca 09/28/2018 Tablets Azithromycin take 2 tablets by 6tabs J20.9 Ansley PMarilin 02/16/2018 - 250mg mouth one time then Fariha Cordova 01/24/2019 Tablets take one daily for 4 days Ipratropium inhale the contents 100vials Lorie Cantor, 11/04/2017 - [place]/Albuterol of 1 vial via M.DMarilin, R.D. 02/16/2018 Sulfate nebulizer two times a day for breathing 0.5-2.5(3)mg/3ML Solution Benzonatate 1-2 by mouth three 45caps J06.9 Lorie Cantor, 10/08/2017 - 100mg times a day as Joni.Darrick, R.D. 10/26/2017 Capsules needed cough Doxycycline 1 tab by mouth 14tabs J06.9 Lorie Cantor, 10/08/2017 - Monohydrate twice a day Joni.Darrick, R.D. 10/26/2017 100mg Tablets Vistaril 1 po bid 60caps R21 Lorie Cantor, 08/14/2017 - 25mg Fariha, R.D. 02/16/2018 Capsules Azithromycin 2 by mouth today 6tabs J20.9 Lorie Cantor, 07/02/2015 - 250mg then 1 by mouth Joni.Darrick, R.D. 08/15/2015 Tablets daily for 4 days Cephalexin 1 tablet by mouth 30caps 682.6 Laxmi Riddle, 02/20/2015 - 500mg three times a day x [facility] 07/02/2015 Capsules 10 days Mupirocin apply a small 22gm 682.6 Laxmi Riddle, 02/20/2015 - 2% Ointment amount to right leg [facility] 07/02/2015 wounds daily Plavix [address] 12/19/2011 - 75mg Tablets Fariha Thakkar 01/31/2014 Carbamazepine one half po qam,and 60tabs 350.[address] 12/19/2011 - 200mg one half po qpm. Fariha Thakkar 01/02/2012 Tablets Prednisone Unknown - 20mg 05/20/2013 Tablets Immunizations CPT Code Status Date Vaccine Lot # [id number] Given 06/09/2018 Influenza Virus Vaccine, Quadrivalent, 3 Yr > [id number] Quad, Preserv Free [id number] Given 05/20/2013 Pneumovax 23 (PPSV23) 65+ years or high risk 2 to [id number] 65 year old Vital Signs Date Vital Result Comment 01/24/2019 9:46am Weight 122.00 lb Weight 55.339 kg BP Systolic 140 mmHg BP Diastolic 72 mmHg Heart Rate 64 /min Body Temperature 98.6 F Respiratory Rate 16 /min O2 % BldC Oximetry 96 % 10/06/2018 12:10pm Weight 130.00 lb Weight 58.968 kg BP Systolic 170 mmHg BP Diastolic 84 mmHg Heart Rate 82 /min Body Temperature 98.1 F Respiratory Rate 24 /min O2 % BldC Oximetry 94 % 09/28/2018 10:27am Weight 130.00 lb Weight 58.968 kg BP Systolic 134 mmHg BP Diastolic 74 mmHg Heart Rate 72 /min Body Temperature 98.6 F Respiratory Rate 16 /min O2 % BldC Oximetry 94 % 02/16/2018 9:59am Weight 127.00 lb Weight 57.607 kg BP Systolic 138 mmHg BP Diastolic 76 mmHg Heart Rate 69 /min Body Temperature 98.8 F Respiratory Rate 18 /min Height 67.5 inches 5'7.50" BMI (Body Mass Index) 19.6 kg/m2 O2 % BldC Oximetry 96 % 10/26/2017 11:30am Weight 126.00 lb Weight 57.154 kg BP Systolic 140 mmHg BP Diastolic 72 mmHg Heart Rate 71 /min Body Temperature 96.8 F Respiratory Rate 18 /min O2 % BldC Oximetry 96 % 08/14/2017 12:40pm Weight 129.00 lb Weight 58.514 kg BP Systolic 140 mmHg BP Diastolic 80 mmHg Heart Rate 80 /min Body Temperature 97.7 F Respiratory Rate 16 /min 08/22/2016 11:23am Weight 120.00 lb Weight 54.432 kg BP Systolic 140 mmHg BP Diastolic 70 mmHg Heart Rate 69 /min Body Temperature 96.5 F Respiratory Rate 16 /min O2 % BldC Oximetry 94 % 08/01/2016 2:55pm Weight 119.00 lb Weight 53.978 kg BP Systolic 142 mmHg BP Diastolic 86 mmHg Heart Rate 81 /min Body Temperature 100.4 F Respiratory Rate 28 /min O2 % BldC Oximetry 90 % 12/28/2015 9:18am Weight 122.00 lb Weight 55.339 kg BP Systolic 134 mmHg BP Diastolic 74 mmHg Heart Rate 73 /min Height 66.5 inches 5'6.50" BMI (Body Mass Index) 19.4 kg/m2 O2 % BldC Oximetry 96 % 08/15/2015 10:32am Weight 117.00 lb Weight 53.071 kg BP Systolic 126 mmHg BP Diastolic 58 mmHg Heart Rate 80 /min Height 67 inches 5'7" BMI (Body Mass Index) 18.3 kg/m2 07/02/2015 2:26pm Weight 117.00 lb Weight 53.071 kg BP Systolic 130 mmHg BP Diastolic 70 mmHg Heart Rate 72 /min Body Temperature 97.4 F O2 % BldC Oximetry 99 % 05/07/2015 4:25pm Weight 116.00 lb Weight 52.618 kg BP Systolic 160 mmHg BP Diastolic 80 mmHg Heart Rate 72 /min Body Temperature 97.2 F 03/23/2015 8:41am Weight 114.00 lb Weight 51.710 kg BP Systolic 144 mmHg BP Diastolic 70 mmHg Heart Rate 60 /min 03/16/2015 10:21am Weight 116.00 lb Weight 52.618 kg BP Systolic 160 mmHg L160/[id number]/87A183/80 BP Diastolic 80 mmHg L160/58Ly154/29Q844/80 Heart Rate 64 /min [id number] 02/23/2015 8:41am Weight 116.00 lb Weight 52.618 kg BP Systolic 132 mmHg BP Diastolic 62 mmHg Heart Rate 52 /min 02/20/2015 9:16am Weight 116.00 lb Weight 52.618 kg BP Systolic 110 mmHg BP Diastolic 50 mmHg Heart Rate 52 /min Body Temperature 97.3 F 03/15/2014 3:19pm Weight 117.00 lb Weight 53.071 kg BP Systolic 118 mmHg BP Diastolic 64 mmHg Heart Rate 68 /min 01/26/2014 2:28pm Weight 119.00 lb Weight 53.978 kg BP Systolic 146 mmHg BP Diastolic 58 mmHg Heart Rate 75 /min Body Temperature 97.9 F O2 % BldC Oximetry 98 % 08/09/2013 9:26am Weight 124.00 lb Weight 56.246 kg BP Systolic 136 mmHg BP Diastolic 74 mmHg Heart Rate 81 /min Body Temperature 97.0 F O2 % BldC Oximetry 98 % 05/20/2013 8:53am Weight 125.00 lb Weight 56.700 kg BP Systolic 130 mmHg BP Diastolic 88 mmHg Heart Rate 80 /min Height 67 inches 5'7" BMI (Body Mass Index) 19.6 kg/m2 01/02/2012 12:02pm Weight 155.00 lb Weight 70.308 kg BP Systolic 130 mmHg BP Diastolic 76 mmHg Heart Rate 56 /min Body Temperature 97.8 F 12/26/2011 9:41am Weight 157.00 lb Weight 71.215 kg BP Systolic 140 mmHg BP Diastolic 76 mmHg Heart Rate 72 /min 12/19/2011 11:19am Weight 155.00 lb Weight 70.308 kg BP Systolic 154 mmHg BP Diastolic 80 mmHg Heart Rate 76 /min Height 67.5 inches 5'7.50" BMI (Body Mass Index) 23.9 kg/m2 Results Test Date Facility Test Result H/L Range Note Laboratory test 01/24/2019 [facility] Lipase <pending > finding [phone] C Reactive Protein <pending> CBC Auto Diff 12/11/2017 [facility] White Blood 5.1 10^3/uL N 3.5-10.8 6 [phone] Count Red Blood Count 4.43 10^6/uL N 4.0-5.4 Hemoglobin 14.3 g/dL N 12.0-16.0 Hematocrit 42 % N 35-47 Mean Corpuscular Volume 95 fL N 80-97 Mean Corpuscular Hemoglobin 32 pg High 27-31 Mean Corpuscular HGB Conc 34 g/dL N 31-36 Red Cell Distribution Width 14 % N 10.5-15 Platelet Count 254 10^3/uL N 150-450 Mean Platelet Volume 8.1 um3 N 7.4-10.4 Abs Neutrophils 3.3 10^3/uL N 1.5-7.7 Abs Lymphocytes 1.1 10^3/uL N 1.0-4.8 Abs Monocytes 0.4 10^3/uL N 0-0.8 Abs Eosinophils 0.2 10^3/uL N 0-0.6 Abs Basophils 0.1 10^3/uL N 0-0.2 Abs Nucleated RBC 0 10^3/uL Granulocyte % 65.6 % N 38-83 Lymphocyte % 21.3 % Low 25-47 Monocyte % 8.7 % High 0-7 Eosinophil % 3.3 % N 0-6 Basophil % 1.1 % N 0-2 Nucleated Red Blood Cells % 0 Inr/Protime 12/11/2017 [facility] Inr 0.86 N 0.77- 1.02 [phone] Laboratory test 12/11/2017 [facility] Partial 29.5 seconds N 26.0-36.3 2 finding [phone] Thrombo Time PTT Basic Metabolic 12/11/2017 [facility] Sodium 140 mmol /L N 139-145 Panel [phone] Potassium 4.3 mmol/L N 3.5-5.0 Chloride 105 mmol/L N 101-111 Co2 Carbon Dioxide 27 mmol/L N 22-32 Anion Gap 8 mmol/L N 2-11 Glucose 101 mg/dL High 70-100 Blood Urea Nitrogen 14 mg/dL N 6-24 Creatinine 0.63 mg/dL N 0.51-0.95 BUN/Creatinine Ratio 22.2 High 8-20 Calcium 9.4 mg/dL N 8.6-10.3 Egfr Non- 90.7 >60 Egfr 116.6 >60 3 Laboratory test 10/10/2017 [facility] Influenza A & B SEE RESULT 4 finding [phone] Request BELOW Laboratory test 10/10/2017 [facility] Procalcitonin 0.2 ng/mL <0.6 5 finding [phone] Flu Test A, B, 10/08/2017 In House Lab Influenza A neg Or A & B,Binaxn [phone] Antigen Influenza B Antigen neg Laboratory test 08/28/2016 [facility] Inr/Protime 0.85 Low 0.89-1.11 finding [phone] Partial Thrombo Time PTT 27.4 seconds N 26.0-36.3 CBC Auto Diff 08/28/2016 [facility] White Blood 4.8 10^3/uL N 3.5-10.8 [phone] Count Red Blood Count 4.29 10^6/uL N 4.0-5.4 Hemoglobin 13.9 g/dL N 12.0-16.0 Hematocrit 41 % N 35-47 Mean Corpuscular Volume 96 fL N 80-97 Mean Corpuscular Hemoglobin 32 pg High 27-31 Mean Corpuscular HGB Conc 34 g/dL N 31-36 Red Cell Distribution Width 13 % N 10.5-15 Platelet Count 200 10^3/uL N 150-450 Mean Platelet Volume 8 um3 N 7.4-10.4 Abs Neutrophils 2.7 10^3/uL N 1.5-7.7 Abs Lymphocytes 1.4 10^3/uL N 1.0-4.8 Abs Monocytes 0.4 10^3/uL N 0-0.8 Abs Eosinophils 0.3 10^3/uL N 0-0.6 Abs Basophils 0 10^3/uL N 0-0.2 Abs Nucleated RBC 0 10^3/uL N Granulocyte % 55.8 % N 38-83 Lymphocyte % 28.4 % N 25-47 Monocyte % 9.4 % High 1-9 Eosinophil % 5.4 % N 0-6 Basophil % 1.0 % N 0-2 Nucleated Red Blood Cells % 0 N Comp Metabolic Panel 08/28/2016 [facility] Sodium 138 mmol/L N 133-145 [phone] Potassium 3.9 mmol/L N 3.5-5.0 Chloride 103 mmol/L N 101-111 Co2 Carbon Dioxide 31 mmol/L N 22-32 Anion Gap 4 mmol/L N 2-11 Glucose 82 mg/dL N 70-100 Blood Urea Nitrogen 18 mg/dL N 6-24 Creatinine 0.67 mg/dL N 0.51-0.95 BUN/Creatinine Ratio 26.9 High 8-20 Calcium 9.4 mg/dL N 8.6-10.3 Total Protein 6.8 g/dL N 6.4-8.9 Albumin 4.2 g/dL N 3.2-5.2 Globulin 2.6 g/dL N 2-4 Albumin/Globulin Ratio 1.6 N 1-3 Total Bilirubin 0.40 mg/dL N 0.2-1.0 Alkaline Phosphatase 105 U/L High 34-104 Alt 19 U/L N 7-52 Ast 16 U/L N 13-39 Egfr Non- 84.9 N >60 Egfr 109.2 N >60 6 Rapid Influenza 08/01/2016 [facility] Influenza A NEGATIVE N Negative 7 A & B Molecular [phone] Molecular Influenza B Molecular NEGATIVE N Negative Laboratory test 08/01/2016 [facility] Rapid Strep Negative N Negative 8 finding [phone] Molecular Laboratory test 08/01/2016 [facility] Rapid Strep A SEE RESULT 9 finding [phone] BELOW Laboratory test 08/01/2016 [facility] Rapid SEE RESULT 10 finding [phone] Influenza A & BELOW B Antigen Urinalysis 08/01/2016 [facility] Urine Color Yellow N Profile [phone] Urine Appearance Clear N Urine Specific [facility] 1.015 N 1.010-1.030 Urine pH 6.0 N 5-9 Urine Urobilinogen Negative N Negative Urine Ketones Negative N Negative Urine Protein Negative N Negative Urine Leukocytes Negative N Negative Urine Blood 1+ Abnormal Negative Urine Nitrite Negative N Negative Urine Bilirubin Negative N Negative Urine Glucose Negative N Negative Urine White Blood Cell Trace(0-5/hpf) N Absent Urine Red Blood Cell 3+(>10/hpf) Abnormal Absent Urine Bacteria Absent N Absent Urine Squamous Epithelial Cell Present Abnormal Absent Laboratory test 08/01/2016 [facility] Legionella Urine SEE RESULT 11 finding [phone] Antigen BELOW Urine Culture SEE RESULT BELOW 12 CBC Auto Diff 08/01/2016 [facility] White Blood 5.3 10^3/uL N 3.5-10.8 [phone] Count Red Blood Count 4.37 10^6/uL N 4.0-5.4 Hemoglobin 14.4 g/dL N 12.0-16.0 Hematocrit 42 % N 35-47 Mean Corpuscular Volume 96 fL N 80-97 Mean Corpuscular Hemoglobin 33 pg High 27-31 Mean Corpuscular HGB Conc 34 g/dL N 31-36 Red Cell Distribution Width 13 % N 10.5-15 Platelet Count 159 10^3/uL N 150-450 Mean Platelet Volume 9 um3 N 7.4-10.4 Abs Neutrophils 4.2 10^3/uL N 1.5-7.7 Abs Lymphocytes 0.6 10^3/uL Low 1.0-4.8 Abs Monocytes 0.4 10^3/uL N 0-0.8 Abs Eosinophils 0.1 10^3/uL N 0-0.6 Abs Basophils 0 10^3/uL N 0-0.2 Abs Nucleated RBC 0 10^3/uL N Granulocyte % 78.6 % N 38-83 Lymphocyte % 11.6 % Low 25-47 Monocyte % 8.3 % N 1-9 Eosinophil % 1.1 % N 0-6 Basophil % 0.4 % N 0-2 Nucleated Red Blood Cells % 0.1 N Inr/Protime 08/01/2016 [facility] Inr 0.87 Low 0.89 -1.11 [phone] Laboratory test 08/01/2016 [facility] Troponin-I 0.26 High <0.04 13 finding [phone] (TnI) [phone]/mL Comp Metabolic 08/01/2016 [facility] Sodium 134 N 133-145 Panel [phone] mmol/L Potassium 3.6 mmol/L N 3.5-5.0 Chloride 99 mmol/L Low 101-111 Co2 Carbon Dioxide 27 mmol/L N 22-32 Anion Gap 8 mmol/L N 2-11 Glucose 147 mg/dL High 70-100 Blood Urea Nitrogen 11 mg/dL N 6-24 Creatinine 0.56 mg/dL N 0.51-0.95 BUN/Creatinine Ratio 19.6 N 8-20 Calcium 9.1 mg/dL N 8.6-10.3 Total Protein 7.2 g/dL N 6.4-8.9 Albumin 4.1 g/dL N 3.2-5.2 Globulin 3.1 g/dL N 2-4 Albumin/Globulin Ratio 1.3 N 1-3 Total Bilirubin 0.40 mg/dL N 0.2-1.0 Alkaline Phosphatase 104 U/L N 34-104 Alt 24 U/L N 7-52 Ast 27 U/L N 13-39 Egfr Non- 104.4 N >60 Egfr 134.3 N >60 14 Laboratory test 08/01/2016 [facility] Lactic Acid 1.7 mmol/L N 0.5-2.0 15 finding [phone] C Reactive Protein 61.82 mg/L High < 5.00 16 B-Type Natriuretic Peptide BNP 175 pg/mL High 17 Procalcitonin < 0.1 ng/mL N <0.6 18 Erythrocyte Sed Rate 25 mm/Hr N 0-40 Blood Culture SEE RESULT BELOW 19 Comp Metabolic Panel 12/28/2015 [facility] Sodium 138 mmol/L N 133-145 [phone] Potassium 4.2 mmol/L N 3.5-5.0 Chloride 101 mmol/L N 101-111 Co2 Carbon Dioxide 31 mmol/L N 22-32 Anion Gap 6 mmol/L N 2-11 Glucose 99 mg/dL N 70-100 Blood Urea Nitrogen 17 mg/dL N 6-24 Creatinine 0.67 mg/dL N 0.51-0.95 BUN/Creatinine Ratio 25.4 High 8-20 Calcium 10.2 mg/dL N 8.6-10.3 Total Protein 7.0 g/dL N 6.4-8.9 Albumin 4.3 g/dL N 3.2-5.2 Globulin 2.7 g/dL N 2-4 Albumin/Globulin Ratio 1.6 N 1-3 Total Bilirubin 0.40 mg/dL N 0.2-1.0 Alkaline Phosphatase 109 U/L High 34-104 Alt 15 U/L N 7-52 Ast 18 U/L N 13-39 Egfr Non- 84.9 N >60 Egfr 109.2 N >60 20 Lipid Profile 12/28/2015 [facility] Triglycerides 104 mg/dL N 21 (Trig/Chol/HDL) [phone] Cholesterol 239 mg/dL N 22 HDL Cholesterol 87.0 mg/dL N 23 LDL Cholesterol 131 mg/dL N 24 CBC Auto Diff 12/28/2015 [facility] White Blood 5.7 10^3/uL N 3.5-10.8 [phone] Count Red Blood Count 4.31 10^6/uL N 4.0-5.4 Hemoglobin 14.5 g/dL N 12.0-16.0 Hematocrit 43 % N 35-47 Mean Corpuscular Volume 100 fL High 80-97 Mean Corpuscular Hemoglobin 34 pg High 27-31 Mean Corpuscular HGB Conc 34 g/dL N 31-36 Red Cell Distribution Width 14 % N 10.5-15 Platelet Count 249 10^3/uL N 150-450 Mean Platelet Volume 8 um3 N 7.4-10.4 Abs Neutrophils 3.7 10^3/uL N 1.5-7.7 Abs Lymphocytes 1.3 10^3/uL N 1.0-4.8 Abs Monocytes 0.5 10^3/uL N 0-0.8 Abs Eosinophils 0.1 10^3/uL N 0-0.6 Abs Basophils 0 10^3/uL N 0-0.2 Abs Nucleated RBC 0 10^3/uL N Granulocyte % 64.8 % N 38-83 Lymphocyte % 23.5 % Low 25-47 Monocyte % 8.5 % N 1-9 Eosinophil % 2.5 % N 0-6 Basophil % 0.7 % N 0-2 Nucleated Red Blood Cells % 0.1 N CBC Auto Diff 08/15/2015 [facility] White Blood 5.0 10^3/uL N 3.5-10.8 [phone] Count Red Blood Count 4.52 10^6/uL N 4.0-5.4 Hemoglobin 15.1 g/dL N 12.0-16.0 Hematocrit 45 % N 35-47 Mean Corpuscular Volume 99 fL High 80-97 Mean Corpuscular Hemoglobin 33 pg High 27-31 Mean Corpuscular HGB Conc 34 g/dL N 31-36 Red Cell Distribution Width 13 % N 10.5-15 Platelet Count 208 10^3/uL N 150-450 Mean Platelet Volume 8 um3 N 7.4-10.4 Abs Neutrophils 2.8 10^3/uL N 1.5-7.7 Abs Lymphocytes 1.5 10^3/uL N 1.0-4.8 Abs Monocytes 0.4 10^3/uL N 0-0.8 Abs Eosinophils 0.2 10^3/uL N 0-0.6 Abs Basophils 0.1 10^3/uL N 0-0.2 Abs Nucleated RBC 0 10^3/uL N Granulocyte % 56.6 % N 38-83 Lymphocyte % 30.6 % N 25-47 Monocyte % 7.4 % N 1-9 Eosinophil % 4.0 % N 0-6 Basophil % 1.4 % N 0-2 Nucleated Red Blood Cells % 0.1 N Comp Metabolic Panel 08/15/2015 [facility] Sodium 137 mmol/L N 133-145 [phone] Potassium 4.7 mmol/L N 3.5-5.0 Chloride 100 mmol/L Low 101-111 Co2 Carbon Dioxide 29 mmol/L N 22-32 Anion Gap 8 mmol/L N 2-11 Glucose 96 mg/dL N 70-100 Blood Urea Nitrogen 15 mg/dL N 6-24 Creatinine 0.68 mg/dL N 0.51-0.95 BUN/Creatinine Ratio 22.1 High 8-20 Calcium 9.7 mg/dL N 8.6-10.3 Total Protein 7.5 g/dL N 6.4-8.9 Albumin 4.7 g/dL N 3.2-5.2 Globulin 2.8 g/dL N 2-4 Albumin/Globulin Ratio 1.7 N 1-3 Total Bilirubin 0.40 mg/dL N 0.2-1.0 Alkaline Phosphatase 109 U/L High 34-104 Alt 24 U/L N 7-52 Ast 23 U/L N 13-39 Egfr Non- 83.7 N >60 Egfr 107.6 N >60 25 Laboratory test 07/17/2015 [facility] Phenytoin 4.9 g/mL Low 10-20 finding [phone] (Dilantin) CBC Auto Diff 03/16/2015 [facility] White Blood 5.6 N 4.8-10.8 [phone] Count 10^3/uL Red Blood Count 4.59 10^6/uL N 4.0-5.4 Hemoglobin 15.2 g/dL N 12.0-16.0 Hematocrit 45 % N 35-47 Mean Corpuscular Volume 99 fL High 80-97 Mean Corpuscular Hemoglobin 33 pg High 27-31 Mean Corpuscular HGB Conc 33 g/dL N 31-36 Red Cell Distribution Width 14 % N 10.5-15 Platelet Count 181 10^3/uL N 150-450 Mean Platelet Volume 8 um3 N 7.4-10.4 Abs Neutrophils 4.3 10^3/uL N 1.5-7.7 Abs Lymphocytes 0.7 10^3/uL Low 1.0-4.8 Abs Monocytes 0.5 10^3/uL N 0-0.8 Abs Eosinophils 0.1 10^3/uL N 0-0.6 Abs Basophils 0 10^3/uL N 0-0.2 Abs Nucleated RBC 0 10^3/uL N Granulocyte % 76.9 % N 38-83 Lymphocyte % 12.8 % Low 25-47 Monocyte % 8.3 % N 1-9 Eosinophil % 1.3 % N 0-6 Basophil % 0.7 % N 0-2 Nucleated Red Blood Cells % 0 N Comp Metabolic Panel 03/16/2015 [facility] Sodium 136 mmol/L N 133-145 [phone] Potassium 4.2 mmol/L N 3.5-5.0 Chloride 99 mmol/L Low 101-111 Co2 Carbon Dioxide 30 mmol/L N 22-32 Anion Gap 7 mmol/L N 2-11 Glucose 99 mg/dL N 70-100 Blood Urea Nitrogen 14 mg/dL N 6-24 Creatinine 0.70 mg/dL N 0.51-0.95 BUN/Creatinine Ratio 20.0 N 8-20 Calcium 9.4 mg/dL N 8.6-10.3 Total Protein 7.1 g/dL N 6.4-8.9 Albumin 4.6 g/dL N 3.2-5.2 Globulin 2.5 g/dL N 2-4 Albumin/Globulin Ratio 1.8 N 1-3 Total Bilirubin 0.40 mg/dL N 0.2-1.0 Alkaline Phosphatase 100 U/L N 34-104 Alt 21 U/L N 7-52 Ast 20 U/L N 13-39 Egfr Non- 80.9 N >60 Egfr 104.1 N >60 26 Laboratory test 03/16/2015 [facility] TSH (Thyroid 0.65 N 0.34-5.60 finding [phone] Stimulating ?IU/mL Horm) Erythrocyte Sed Rate 9 mm/Hr N 0-40 C Reactive Protein 7.77 mg/L High < 5.00 27 Enma (Anti-Nuclear AB) Screen Reflexed to FA Abnormal Negative Enma Hep-2 03/16/2015 [facility] Enma Pattern Mitochondrial N Negative [phone] Enma Titer 1:160 N <1:80 Enma Reviewed By MD John Shipley <SEE NOTE> N 28 Comp Metabolic 06/26/2014 [facility] Sodium 140 mmol/ L N 133-145 29 Panel [phone] Potassium 3.5 mmol/L N 3.5-5.0 30 Chloride 103 mmol/L N 101-111 Co2 Carbon Dioxide 31 mmol/L N 22-32 Anion Gap 6 mmol/L N 2-11 Glucose 98 mg/dL N 70-100 Blood Urea Nitrogen 11 mg/dL N 6-24 Creatinine 0.64 mg/dL N 0.51-0.95 BUN/Creatinine Ratio 17.2 N 8-20 Calcium 9.3 mg/dL N 8.6-10.3 Total Protein 6.9 g/dL N 6.4-8.9 Albumin 4.2 g/dL N 3.2-5.2 Globulin 2.7 g/dL N 2-4 Albumin/Globulin Ratio 1.6 N 1-3 Total Bilirubin 0.40 mg/dL N 0.2-1.0 Alkaline Phosphatase 116 U/L High 34-104 Alt 18 U/L N 7-52 Ast 16 U/L N 13-39 Egfr Non- 90.0 N >60 Egfr 115.7 N >60 31 Lipid Profile 06/26/2014 [facility] Triglycerides 137 mg/dL N 32 (Trig/Chol/HDL) [phone] Cholesterol 225 mg/dL N 33 HDL Cholesterol 68.8 mg/dL N 34 LDL Cholesterol 129 mg/dL N 35 Laboratory test 06/26/2014 [facility] Free T4 0.91 ng /mL N 0.61-1.12 36 finding [phone] Total T3 1.26 ng/mL N 0.87-1.78 37 Free T3 3.40 pg/mL N 2.5-3.9 38 TSH (Thyroid Stimulating Horm) 1.43 IU/mL N 0.34-5.60 39 Cortisol 17.35 g/dL N 40 Carcinoembryonic Antigen 2.6 ng/mL N 0.1-5.0 41 Erythrocyte Sed Rate 15 mm/Hr N 0-40 42 Vitamin D, 25 06/26/2014 [facility] 25-Hydroxy Vitamin <4.0 ng/mL N Hydroxy [phone] D2 25-Hydroxy Vitamin D3 23 ng/mL N 25-Hydroxy Vitamin D Total 23 ng/mL N 43 Celiac Panel 06/26/2014 [facility] Immunoglobulin A 162 mg/dL N 61 - 356 [phone] Tissue Transglutaminase IgA Ab <1.2 U/mL N 44 Celiac Interpretation See Comment N 45 Urine Culture And 03/15/2014 [facility] Urine Culture (SEE NOTE) 46 Sensitivities [phone] Urinalysis Profile 03/15/2014 [facility] Urine Color Yellow N [phone] Urine Appearance Clear N Urine Specific [facility] 1.009 Low 1.010-1.030 Urine pH 6.0 N 5-9 Urine Urobilinogen Negative N Negative Urine Ketones Negative N Negative Urine Protein Negative N Negative Urine Leukocytes Negative N Negative Urine Blood 1+ Abnormal Negative Urine Nitrite Negative N Negative Urine Bilirubin Negative N Negative Urine Glucose Negative N Negative Urine White Blood Cell Trace N Absent Urine Red Blood Cell Trace N Absent Urine Bacteria Absent N Absent Urine Squamous Epithelial Cell Present Abnormal Absent Surgical Pathology 03/06/2014 [facility] S RUN DATE: 07 [phone] 03/08/ <SEE NOTE> Laboratory test 01/26/2014 [facility] Albumin 4.5 g/ dL N 3.2-5.2 finding [phone] Prealbumin 23 mg/dL N 18-38 Liver Function 01/26/2014 [facility] Total Protein 7.0 g/dL N 6.4-8.9 Panel [phone] Globulin 2.5 g/dL N 2-4 Albumin/Globulin Ratio 1.8 N 1-3 Total Bilirubin 0.40 mg/dL N 0.2-1.0 Direct Bilirubin 0.10 mg/dL N 0.03-0.18 Indirect Bilirubin 0.3 mg/dL N 0.3-1.0 Alkaline Phosphatase 99 U/L N 34-104 Alt 14 U/L N 7-52 Ast 15 U/L N 13-39 Laboratory test 01/26/2014 [facility] TSH (Thyroid 1.05 IU/mL N 0.34-5.60 finding [phone] Stimulating Horm) CBC With Manual 01/26/2014 [facility] White Blood 6.1 N 4.8-10.8 Diff [phone] Count 10^3/uL Red Blood Count 4.46 10^6/uL N 4.0-5.4 Hemoglobin 14.9 g/dL N 12.0-16.0 Hematocrit 44 % N 35-47 Mean Corpuscular Volume 98 fL High 80-97 Mean Corpuscular Hemoglobin 33 pg High 27-31 Mean Corpuscular HGB Conc 34 g/dL N 31-36 Red Cell Distribution Width 14 % N 10.5-15 Platelet Count 200 10^3/uL N 150-450 Mean Platelet Volume 8 um3 N 7.4-10.4 Abs Neutrophils 3.3 10^3/uL N 1.5-7.7 Abs Lymphocytes 2.0 10^3/uL N 1.0-4.8 Abs Monocytes 0.5 10^3/uL N 0-0.8 Abs Eosinophils 0.2 10^3/uL N 0-0.6 Abs Basophils 0.1 10^3/uL N 0-0.2 Abs Nucleated RBC 0 10^3/uL N Neutrophil % 59 % N 38-83 Lymphocytes % 31 % N 25-47 Monocytes % 6 % N 0-13 Eosinophils % 2 % N 0-6 Reactive Lymph % 2 % N 0-6 RBC Morphology Normal N Normal Laboratory test 08/09/2013 [facility] Phenytoin 5.5 g/mL Low 10.0-20.0 48 finding [phone] Laboratory test 05/23/2013 [facility] Blood Urea 9 mg /dL 6-24 finding [phone] Nitrogen Creatinine 05/23/2013 [facility] Creatinine 0.70 mg/ dL 0.50-1.40 [phone] Egfr Non- 81.4 >60 Egfr 104.6 >60 49 Urine DIP 05/20/2013 In House Lab Leukocytes ++ Neg ([phone] - Urine Nitrites NEG Neg Urine pH 6 5-6 Total Protein, Urine NEG Neg Urine Glucose NORM Norm Urine Ketones NEG Neg Urobilinogen NORM Norm Urine Bilirubin NEG Neg Urine Blood 100 High Neg Specific [facility] 1.025 High 1.01-1.02 CBC Auto Diff 12/19/2011 [facility] White Blood 6.5 CUMM 4.8-10.8 [phone] Count Red Cell Count 4.25 CUMM 4.2-5.4 Hemoglobin 14.7 g/dL 12.0-16.0 Hematocrit 42 % 35-47 Mean Corpuscular Volume 98 um3 High 79-97 Mean Corpuscular Hemoglob 35 pg High 27-31 Mean Corpuscular HGB Cone 35 g/dL 32-36 Redcell Distribution WDTH 14 % 10.5-15 Platelet Count 273 CUMM 150-450 Mean Platelet Volume 8.5 um3 7.4-10.4 Gran % 66.0 % 38-83 Lymph % 26.0 % 25-47 Mononuclear % 5.9 % 1-9 Eosinophil % 1.6 % 0-6 Basophil % 0.5 % 0-2 Abs Lymphs 1.7 1.0-4.8 Abs Mononuclear 0.4 0-0.8 Absolute Neutrophil Count 4.3 1.5-7.7 Abs Eosinophils 0.1 0-0.6 Abs Basophils 0 0-0.2 Basic Metabolic 12/19/2011 [facility] Sodium 140 mmol /L 135-145 Panel [phone] Potassium 4.2 mmol/L 3.5-5.0 Chloride 104 mmol/L 101-111 Co2 (Carbon Dioxide) 26.0 mmol/L 22-32 Anion Gap 10.0 mmol/L 2-11 50 Glucose 98 mg/dL 70-100 BUN 13 mg/dL 6-24 Creatinine 0.7 mg/dL 0.50-1.40 One Over Creatinine 1.42 BUN/Creatinine Ratio 18.6 8-20 Calcium 9.9 mg/dL 8.1-9.9 eGFR Non- 81.6 > 60 eGFR 104.9 > 60 51 CBC Auto Diff 01/25/2011 [facility] White Blood 7.6 CUMM 4.8-10.8 [phone] Count Red Cell Count 4.38 CUMM 4.2-5.4 Hemoglobin 14.7 g/dL 12.0-16.0 Hematocrit 43 % 35-47 Mean Corpuscular Volume 97 um3 79-97 Mean Corpuscular Hemoglob 34 pg High 27-31 Mean Corpuscular HGB Cone 35 g/dL 32-36 Redcell Distribution WDTH 13 % 10.5-15 Platelet Count 251 CUMM 150-450 Mean Platelet Volume 7.6 um3 7.4-10.4 Gran % 70.3 % 38-83 Lymph % 23.8 % Low 25-47 Mononuclear % 3.9 % 1-9 Eosinophil % 1.2 % 0-6 Basophil % 0.8 % 0-2 Abs Lymphs 1.8 1.0-4.8 Abs Mononuclear 0.3 0-0.8 Absolute Neutrophil Count 5.3 1.5-7.7 Abs Eosinophils 0.1 0-0.6 Abs Basophils 0.1 0-0.2 Laboratory test 01/25/2011 [facility] BNP Evaluatr 28.0 pg/mL 0-100 finding [phone] PT W/Inr 01/25/2011 [facility] Inr 1.02 0.82-1.17 52 [phone] Protime 12.1 SEC 10.2-14.8 53 Laboratory test 01/25/2011 [facility] PTT (Aptt) 98.2 High 25.15-38.53 finding [phone] Comp Metabolic 01/25/2011 [facility] Sodium 137 135-145 Panel [phone] mmol/L Potassium 3.8 mmol/L 3.5-5.0 Chloride 103 mmol/L 101-111 Co2 (Carbon Dioxide) 22.0 mmol/L 22-32 Anion Gap 12.0 mmol/L High 2-11 54 Glucose 195 mg/dL High 70-100 BUN 14 mg/dL 6-24 Creatinine 0.80 mg/dL 0.50-1.40 One Over Creatinine 1.20 BUN/Creatinine Ratio 17.5 8-20 Calcium 9.1 mg/dL 8.1-9.9 Total Protein 6.9 GM/DL 6.2-8.1 Albumin 4.0 GM/DL 3.2-5.2 Globulin 2.9 GM/DL 2-4 Albumin/Globulin Ratio 1.4 1-3 Bilirubin Total 1.0 mg/dL 0.4-1.5 55 Alkaline Phosphatase 95 U/L 30-110 Alt (SGPT) 17 U/L 14-54 Ast (Sgot) 22 U/L 12-42 eGFR Non- 70.1 > 60 eGFR 90.2 > 60 56 Laboratory test 01/25/2011 [facility] LDL Direct 160 mg/dL High Less Than 57 finding [phone] 100 CPK (Creatine Kinase) 110 U/L 0-170 CKMB 01/25/2011 [facility] CKMB In NG/ML 5.6 NG/ML High 0.3-4.0 [phone] % CKMB 5 %MB 0-9 58 Laboratory test 01/25/2011 [facility] Myoglobin 40.40 NG/ML 14.3-65.8 finding [phone] Troponin-I 0.81 NG/ML High 0-0.06 59 1 PRIOR TO PACER IMPLANT 2 PRIOR TO PACER IMPLANT 3 Because ethnic data is not always readily available, this report includes an eGFR for both -Americans and non- Americans. The National Kidney Disease Education Program (NKDEP) does not endorse the use of the MDRD equation for patients that are not between the ages of 18 and 70, are , have extremes of body size, muscle mass, or nutritional status, or are non- or non-. According to the National Kidney Foundation, irrespective of diagnosis, the stage of the disease is based on the level of kidney function: Stage Description GFR(mL/min/1.73 m(2)) 1 Kidney damage with normal or decreased GFR 90 2 Kidney damage with mild decrease in GFR 60-89 3 Moderate decrease in GFR 30-59 4 Severe decrease in GFR 15-29 5 Kidney failure <15 (or dialysis) 4 SEE RESULT BELOW Name: MALLORIE MANZANARES ANN : [address]: Owen Hagan MD Acct: [id number] Unit: [id number] AGE: 81 Location: ED Re10/10/17 SEX: F Status: REG ER SPEC: [id number] JÚNIOR: 10/10/[address] [facility] [address]: Owen Hagan MD REQ: [id number] RECD: 10/10/17 STATUS: LUL PATTERSON DR: Lorie Cantor MD _ SOURCE: [facility]: ORDERED: Flu A B Request Procedure Result Reported Site Rapid Influenza A B Request Final 10/10/17- 2225 ML Specimen received for Influenza A/B Molecular testing * ML - Main Lab . END OF REPORT DEPARTMENT OF PATHOLOGY, [address] [place] [address] John Alan M.D. Director [facility] # [id number] 5 Interpretive information available on [employer] Lab Test Catalog at [email or web address] 6 Because ethnic data is not always readily available, this report includes an eGFR for both -Americans and non- Americans. The National Kidney Disease Education Program (NKDEP) does not endorse the use of the MDRD equation for patients that are not between the ages of 18 and 70, are , have extremes of body size, muscle mass, or nutritional status, or are non- or non-. According to the National Kidney Foundation, irrespective of diagnosis, the stage of the disease is based on the level of kidney function: Stage Description GFR(mL/min/1.73 m(2)) 1 Kidney damage with normal or decreased GFR 90 2 Kidney damage with mild decrease in GFR 60-89 3 Moderate decrease in GFR 30-59 4 Severe decrease in GFR 15-29 5 Kidney failure <15 (or dialysis) 7 Nail Machine Operator: MARIELY NAVARRO 8 Nail Machine Operator: MARIELY NAVARRO 9 SEE RESULT BELOW Name: MALLORIE MANZANARES : [address]: Issa Cross MD Acct: [id number] Unit: [id number] AGE: 80 Location: ED Re08/01/16 SEX: F Status: REG ER SPEC: [id number] JÚNIOR: 08/01/[address]: Chris Dolan NP REQ: [id number] RECD: 08/01/16 STATUS: LUL PATTERSON DR: Lorie Cross MD _ SOURCE: THROAT SPDESC: ORDERED: Strep A Request Procedure Result Reported Site Rapid Strep A Request Final 08/01/161832 ML Specimen received for Rapid Strep A Molecular testing * ML - MAIN LAB ([facility]) . END OF REPORT * ML=Testing performed at Main Lab DEPARTMENT OF PATHOLOGY, [address] [place] [address] John Alan M.D. Director [facility] # [id number] 10 SEE RESULT BELOW Name: MALLORIE MANZANARES : [address]: Issa Cross MD Acct: [id number] Unit: [id number] AGE: 80 Location: ED Re08/01/16 SEX: F Status: REG ER SPEC: [id number] JÚNIOR: 08/01/[address]: Issa Cross MD REQ: [id number] RECD: 08/01/16 STATUS: LUL PATTERSON DR: Lorie Cantor MD _ S[facility]: ORDERED: Flu A B Request Procedure Result Reported Site Rapid Influenza A B Request Final 08/01/16- 183 ML Specimen received for Influenza A/B Molecular testing * ML - MAIN LAB ([facility]) . END OF REPORT * ML=Testing performed at Main Lab DEPARTMENT OF PATHOLOGY, [address] [place] [address] John Alan M.D. Director [place] # [id number] 11 SEE RESULT BELOW Name: MALLORIE MANZANARES : [address]: Pinky Colunga MD Acct: [id number] Unit: [id number] AGE: 80 Location: [place] [address] Re08/01/16 SEX: F Status: ADM IN SPEC: [id number] JÚNIOR: 08/01/16-[address]: Chris Dolan NP REQ: [id number] RECD: 08/01/16 STATUS: RES OTHR DR: Lorie Cross MD _ SOURCE: URINE [facility]: ORDERED: Urine Culture, Legion Ur Ag, S.pneumo Ur Ag Procedure Result Reported Site Urine Culture PENDING Legionella Urine Antigen Final 16- 1201 ML Organism 1 Negative Legionella Antigen testing by enzyme immunoassay S.Pneumonia Urine Antigen Final 08/02/16- 1201 ML Organism 1 Negative S. pneumo Antigen Antigen testing by enzyme immunoassay * ML - MAIN LAB ([facility]) . END OF REPORT * ML=Testing performed at Main Lab DEPARTMENT OF PATHOLOGY, [address] [place] [address] John Alan M.D. Director [facility] # [id number] 12 SEE RESULT BELOW Name: MALLORIE MANZANARES : [address]: Pinky Colunga MD Acct: [id number] Unit: [id number] AGE: 80 Location: [place] [address] Re08/01/16 SEX: F Status: ADM IN SPEC: [id number] JÚNIOR: 08/01/[address]: Chris Dolan ELECTROPHYSIOLOGIST REQ: [id number] RECD: 08/01/16 STATUS: COMP OTHR DR: Lorie Cross MD _ SOURCE: URINE SPDESC: ORDERED: Urine Culture, Legion Ur Ag S.pneumo Ur Ag Procedure Result Reported Site Urine Culture Final 08/03/16- 1208 ML No Growth (<1,000 CFU/mL) Legionella Urine Antigen Final 08/02/16- 1201 ML Organism 1 Negative Legionella Antigen testing by enzyme immunoassay S.Pneumonia Urine Antigen Final 08/02/16- 1201 ML Organism 1 Negative S. pneumo Antigen Antigen testing by enzyme immunoassay * ML - MAIN LAB ([facility]) . END OF REPORT * ML=Testing performed at Main Lab DEPARTMENT OF PATHOLOGY, [address] [place] [address] John Alan M.D. Director [facility] # [id number] 13 Result TnIDx:0.26 Called to [id number] at: 16:42:41 by:[id number] Read back by: MELE 99th percentile=0.04 ng/mL Troponin results at [facility] and [facility] are not interchangeable. 14 Because ethnic data is not always readily available, this report includes an eGFR for both -Americans and non- Americans. The National Kidney Disease Education Program (NKDEP) does not endorse the use of the MDRD equation for patients that are not between the ages of 18 and 70, are , have extremes of body size, muscle mass, or nutritional status, or are non- or non-. According to the National Kidney Foundation, irrespective of diagnosis, the stage of the disease is based on the level of kidney function: Stage Description GFR(mL/min/1.73 m(2)) 1 Kidney damage with normal or decreased GFR 90 2 Kidney damage with mild decrease in GFR 60-89 3 Moderate decrease in GFR 30-59 4 Severe decrease in GFR 15-29 5 Kidney failure <15 (or dialysis) 15 [facility] Severe Sepsis and Septic Shock Management Bundle Measure requires all lactic acids initially measuring >2.0 mmol/L be repeated. 16 Acute inflammation: >10.00 17 >100 to <200 pg/mL: likely compensated congestive heart failure (CHF) 200 to 400 pg/mL: likely moderate CHF >400 pg/mL: likely moderate to severe CHF 18 Interpretive information available on [employer] Test Catalog at [email or web address] 19 SEE RESULT BELOW Name: MALLORIE MANZANARES : [address]: Dolly Blum MD Acct: [id number] Unit: [id number] AGE: 80 Location: [place] [address] Re08/01/16 Dis: 08/03/16 SEX: F Status: DIS IN SPEC: [id number] JÚNIOR: 08/01/16-[address] [facility] [address]: Issa Cross MD REQ: [id number] RECD: 08/01/16 STATUS: LUL PATTERSON DR: Lorie Cantor MD _ SOURCE: BLOOD,VENO SPDESC: ORDERED: Blood Cult Procedure Result Reported Site Aerobic Culture Bottle Final 08/06/16- 1632 ML No Growth Day 5 Anaerobic Culture Bottle Final 08/06/16- 1632 ML No Growth Day 5 * ML - MAIN LAB ([facility]) . END OF REPORT * ML=Testing performed at Main Lab DEPARTMENT OF PATHOLOGY, [address] [place] [address] John Alan M.D. Director [facility] # [id number] 20 Because ethnic data is not always readily available, this report includes an eGFR for both -Americans and non- Americans. The National Kidney Disease Education Program (NKDEP) does not endorse the use of the MDRD equation for patients that are not between the ages of 18 and 70, are , have extremes of body size, muscle mass, or nutritional status, or are non- or non-. According to the National Kidney Foundation, irrespective of diagnosis, the stage of the disease is based on the level of kidney function: Stage Description GFR(mL/min/1.73 m(2)) 1 Kidney damage with normal or decreased GFR 90 2 Kidney damage with mild decrease in GFR 60-89 3 Moderate decrease in GFR 30-59 4 Severe decrease in GFR 15-29 5 Kidney failure <15 (or dialysis) 21 Desirable <150 Borderline high 150-199 High 200-499 Very High >500 22 Desirable <200 Borderline high 200-239 High >239 23 Low <40 Desirable: 40-60 High: >60 24 Desirable: <100 mg/dL Near Optimal: 100-129 mg/dL Borderline High: 130-159 mg/dL High: 160-189 mg/dL Very High: >189 mg/dL 25 Because ethnic data is not always readily available, this report includes an eGFR for both -Americans and non- Americans. The National Kidney Disease Education Program (NKDEP) does not endorse the use of the MDRD equation for patients that are not between the ages of 18 and 70, are , have extremes of body size, muscle mass, or nutritional status, or are non- or non-. According to the National Kidney Foundation, irrespective of diagnosis, the stage of the disease is based on the level of kidney function: Stage Description GFR(mL/min/1.73 m(2)) 1 Kidney damage with normal or decreased GFR 90 2 Kidney damage with mild decrease in GFR 60-89 3 Moderate decrease in GFR 30-59 4 Severe decrease in GFR 15-29 5 Kidney failure <15 (or dialysis) 26 Because ethnic data is not always readily available, this report includes an eGFR for both -Americans and non- Americans. The National Kidney Disease Education Program (NKDEP) does not endorse the use of the MDRD equation for patients that are not between the ages of 18 and 70, are , have extremes of body size, muscle mass, or nutritional status, or are non- or non-. According to the National Kidney Foundation, irrespective of diagnosis, the stage of the disease is based on the level of kidney function: Stage Description GFR(mL/min/1.73 m(2)) 1 Kidney damage with normal or decreased GFR 90 2 Kidney damage with mild decrease in GFR 60-89 3 Moderate decrease in GFR 30-59 4 Severe decrease in GFR 15-29 5 Kidney failure <15 (or dialysis) 27 Acute inflammation: >10.00 28 John Alan 29 FASTING 30 Potassium reference range changed effective 06/11/14 31 Because ethnic data is not always readily available, this report includes an eGFR for both -Americans and non- Americans. The National Kidney Disease Education Program (NKDEP) does not endorse the use of the MDRD equation for patients that are not between the ages of 18 and 70, are , have extremes of body size, muscle mass, or nutritional status, or are non- or non-. According to the National Kidney Foundation, irrespective of diagnosis, the stage of the disease is based on the level of kidney function: Stage Description GFR(mL/min/1.73 m(2)) 1 Kidney damage with normal or decreased GFR 90 2 Kidney damage with mild decrease in GFR 60-89 3 Moderate decrease in GFR 30-59 4 Severe decrease in GFR 15-29 5 Kidney failure <15 (or dialysis) 32 Desirable <150 Borderline high 150-199 High 200-499 Very High >500 33 Desirable <200 Borderline high 200-239 High >239 34 Low <40 Desirable: 40-60 High: >60 35 Desirable <100 Near Optimal 100-129 Borderline high 130-159 High 160-189 Very High >189 36 FASTING 37 FASTING 38 FASTING 39 FASTING 40 AM 8.7-22.4 PM <10 41 Nonsmokers: < 2.9 ng/mL Some smokers may have elevated CEA, usually <5.0 ng/mL. Serum markers are not specific for malignancy, and values may vary by method. The testing method is an immunoenzymatic assay tech ed/woodshop teacher by [employer] performed on Ronna Updater DXI 600. Do not interpret serum CEA levels as absolute evidence of the presence or the absence of malignant disease. Use serum CEA in conjunction with information from the clinical evaluation of the patient and other diagnostic procedures. 42 FASTING 43 REFERENCE VALUE 25-HYDROXY D TOTAL (D2+D3) Optimum levels in the healthy population are 20-50, patients with bone disease may benefit from higher levels within this range. Test Performed by: [address] [address] Linotype Worker: John Velasquez M.D. 44 REFERENCE VALUE <4.0 (Negative) Test Performed by: [facility] - [address] [address] Linotype Worker: John Velasquez M.D. 45 Negative serology. Celiac disease unlikely. However, approximately 10% of patients with celiac disease are seronegative. Also, patients who are already adhering to a gluten-free diet may be seronegative. If celiac disease is highly clinically suspected, consider HLA-DQ typing. Test Performed by: [facility] - [address] [address] Linotype Worker: John Velasquez M.D. 46 RUN DATE: 03/17/14 [facility] LIVE PAGE 1 RUN TIME: [address] [place] [address] Specimen Inquiry Name: MALLORIE MANZANARES : [address]: Rahel Whitlock MD Acct: [id number] Unit: [id number] AGE: 78 Location: [facility] Re03/15/14 SEX: F Status: REG REF SPEC: [id number] JÚNIOR: 03/15/14-[address]: Rahel Whitlock MD REQ: [id number] RECD: 03/15/14 STATUS: COMP _ SOURCE: URINE SPDESC: ORDERED: Urine Culture QUERIES: [employer] Number [id number] Procedure Result Verified Site Urine Culture Final 03/17/14- 957 ML No Growth Day 2 (<1,000 CFU/mL) END OF REPORT * ML=Testing performed at Main Lab DEPARTMENT OF PATHOLOGY, [facility] [place], [place] [address] John Alan M.D. Director [facility] # [id number] RUN DATE: 03/08/14 [facility] LIVE PAGE 1 RUN TIME: 2648 [facility] [employer] [place], [place] [address] Specimen Inquiry Name: MALLORIE MANZANARES : [address]: Patrick Edouard MD Acct: [id number] Unit: [id number] AGE: 78 Location: ENDO Re03/06/14 SEX: F Status: REG REF SPEC: [id number] JÚNIOR: 03/06/14-[address] [facility] [address]: Patrick Edouard MD REQ: [id number] RECD: 03/06/14 STATUS: TY PATTERSON DR: Rahel Whitlock MD _ ORDERED: H PYLORI IMM ST, LEVEL IV/2 An H. pylori immunostain, with appropriately reacting controls, was performed on sections cut from specimen 2 and is negative for Helicobacter organisms. Addendum Signed (signature on file) Betty Ochoa MD 1704 FINAL DIAGNOSIS 1. Duodenum, biopsy: A. Small intestinal mucosa with no significant pathologic abnormalities. B. No evidence of villous blunting or increased intraepithelial lymphocytes. 2. Stomach, biopsy: Antral and body type gastric mucosa with mild chronic gastritis; see comment. COMMENTS: No Helicobacter organisms are seen on H E examination. An H. pylori immunostain is pending and the results will be reported in an addendum. CLINICAL HISTORY No history given POST-OPERATIVE DIAGNOSIS Esophagus - normal. Gastric - gastritis (biopsied). Duodenum - normal ( biopsied). CONTINUED ON NEXT PAGE * ML=Testing performed at Main Lab DEPARTMENT OF PATHOLOGY, [address] [place] [address] John Alan M.D. Director [facility] # [id number] RUN DATE: 03/08/14 [facility] LIVE PAGE 2 RUN TIME: [address] [place] [address] Specimen Inquiry Patient: MALLORIE MANZANARES [id number] (Continued) GROSS DESCRIPTION (Continued) GROSS DESCRIPTION 1. The specimen is received in formalin labeled Mallorie Manzanares, Biopsy Duodenum and consists of a 0.4 x 0.3 x 0.1 cm. spears-pink irregular soft tissue fragment. Submitted entirely, one cassette. 2. The specimen is received in formalin labeled Mallorie Manzanares, Gastric Biopsy and consists of two spears-pink irregular soft tissue fragments measuring 0.3 x 0.3 x 0.2 cm. and 0.5 x 0.4 x 0.1 cm. Submitted entirely, one cassette. 1. Signed (signature on file) Betty Ochoa MD 1424 END OF REPORT * ML=Testing performed at Main Lab DEPARTMENT OF PATHOLOGY, [address] [place] [address] John Alan M.D. Director [facility] # [id number] 48 The detection limit for Phenytoin is 2.5 mcg/ml . Values less than 2.5 mcg/ml cannot be accurately measured. 49 Because ethnic data is not always readily available, this report includes an eGFR for both -Americans and non- Americans. The National Kidney Disease Education Program (NKDEP) does not endorse the use of the MDRD equation for patients that are not between the ages of 18 and 70, are , have extremes of body size, muscle mass, or nutritional status, or are non- or non-. According to the National Kidney Foundation, irrespective of diagnosis, the stage of the disease is based on the level of kidney function: Stage Description GFR(mL/min/1.73 m(2)) 1 Kidney damage with normal or decreased GFR 90 2 Kidney damage with mild decrease in GFR 60-89 3 Moderate decrease in GFR 30-59 4 Severe decrease in GFR 15-29 5 Kidney failure <15 (or dialysis) 50 Anion gap measurement may be of limited value in the presence of any alkalosis, especially in a combined acid base disorder. . 51 Because ethnic data is not always readily available, this report includes an eGFR for both -Americans and non- Americans. The National Kidney Disease Education Program (NKDEP) does not endorse the use of the MDRD equation for patients that are not between the ages of 18 and 70, are , have extremes of body size, muscle mass, or nutritional status, or are non- or non-. According to the National Kidney Foundation, irrespective of diagnosis, the stage of the disease is based on the level of kidney function: Stage Description GFR(mL/min/1.73 m(2)) 1 Kidney damage with normal or decreased GFR 90 2 Kidney damage with mild decrease in GFR 60-89 3 Moderate decrease in GFR 30-59 4 Severe decrease in GFR 15-29 5 Kidney failure <15 (or dialysis) 52 Recommended INR for Patients on Oral Anticoagulants Prophylaxis 2.0 - 3.0 Treatment of thrombosis 2.0 - 3.0 Prevention of embolism 2.0 - 3.0 Prevention of embolism from prosthetic heart valves 2.5 - 3.5 53 DIAGNOSIS,TREATMENT,AND THERAPY MUST BE BASED ON THE INR VALUE ALONE. 54 Anion gap measurement may be of limited value in the presence of any alkalosis, especially in a combined acid base disorder. . 55 A metabolite of Naproxen, O-desmethylnaproxen, has been shown to interfere with the Jendrassik-Ricarda method for measuring total bilirubin. Samples from patients who have taken Naproxen have shown spurious elevation in total bilirubin levels. 56 Because ethnic data is not always readily available, this report includes an eGFR for both -Americans and non- Americans. The National Kidney Disease Education Program (NKDEP) does not endorse the use of the MDRD equation for patients that are not between the ages of 18 and 70, are , have extremes of body size, muscle mass, or nutritional status, or are non- or non-. According to the National Kidney Foundation, irrespective of diagnosis, the stage of the disease is based on the level of kidney function: Stage Description GFR(mL/min/1.73 m(2)) 1 Kidney damage with normal or decreased GFR 90 2 Kidney damage with mild decrease in GFR 60-89 3 Moderate decrease in GFR 30-59 4 Severe decrease in GFR 15-29 5 Kidney failure <15 (or dialysis) 57 LDL INTERPRETATION: Low Risk Optimal Level: LDL Less than 100 MG/DL Near or Above Optimal: LDL 100-129 MG/DL Borderline High Risk: LDL 130-159 MG/DL High Risk: LDL 160-189 MG/DL Very High Risk: LDL Greater than 189 MG/DL 58 INTERPRETATION %CK-MB < 5% NOT SUPPORTIVE OF DIAGNOSIS OF [place] 5 - <10% INDETERMINATE; SUGGEST SERIAL STUDIES IF CLINICALLY INDICATED 10% OR > CONSISTENT WITH DIAGNOSIS OF [place] . 59 New Reference Range and Interpretation effective 05/13/2002 TnI (ng/ml) INTERPRETATION Less Than 0.06 ng/mL NOT SUPPORTIVE OF DIAGNOSIS OF [place] 0.06 - 0.50 ng/ml INDETERMINATE: SUGGEST SERIAL STUDIES IF CLINICALLY INDICATED. Greater than 0.5 ng/mL CONSISTENT WITH DIAGNOSIS OF [place] . Procedures Date Code Description Status 08/15/2015 19972 EKG, at Least 12 Leads w/Interpretation and Report Completed 05/20/2013 74748 Spirometry Completed 05/20/2013 91704 EKG, at Least 12 Leads w/Interpretation and Report Completed Encounters Type Date Location Provider Dx Diagnosis Office Visit 10/06/2018 Main Office Jahaira Anderson44.1 Chronic obstructive 12:00p M.D., R.D. pulmonary disease w (acute) exacerbation M54.5 Low back pain Office Visit 09/28/2018 10:30a Main Office Ansley Campo44.1 Chronic obstructive Addie Cordova. pulmonary disease w (acute) exacerbation M54.5 Low back pain Office Visit 02/16/2018 10:00a Main Office Prashanth Penaloza J20.9 Acute bronchitis, unspecified Office Visit 10/26/2017 12:00p Main Office Jahaira Anderson44.1 Chronic obstructive M.D., R.D. pulmonary disease w (acute) exacerbation J11.89 Influenza due to unidentified influenza virus w oth manifest Office Visit 10/08/2017 12:15p Main Office Lorie Cantor J06.9 Acute upper M.D., R.D. respiratory infection, unspecified Office Visit 08/14/2017 12:45p Main Office Lorie Cantor, R21 Rash and other M.D., R.D. nonspecific skin eruption Office Visit 08/22/2016 11:30a Main Office Jahaira Anderson18.9 Pneumonia , M.D., R.D. unspecified organism I25.9 Chronic ischemic heart disease, unspecified Office Visit 08/01/2016 3:00p Main Office Prashanth Penaloza R06.00 Dyspnea, unspecified Office Visit 12/28/2015 9:30a Main Office Lorie Cantor Z00.00 Encntr for general M.D., R.D. adult medical exam w/o abnormal findings I10 Essential (primary) hypertension E78.0 Pure hypercholesterolemia Office Visit 08/15/2015 10:30a Main Office Lorie Devaughn, H26.9 Unspecified M.Darrick, R.D. 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 unspecified Office Visit 05/07/2015 4:30p Main Office Prashanth Penaloza, L27.8 Dermatitis due to MD other substances taken internally Office Visit 03/23/2015 8:45a Main Office Laxmi Riddle, 780.4 Dizziness & [facility] Giddiness Office Visit 03/16/2015 9:30a Main Office Laxmi Riddle 780.4 Dizziness & [facility] Giddiness Office Visit 02/23/2015 8:30a Main Office Laxmi Riddle, 682.6 Cellulitis & [facility] [employer] Abscess Leg Except Foot Office Visit 02/20/2015 9:30a Main Office Laxmi Riddle, 682.6 Cellulitis & [facility] Abscess Leg Except Foot Office Visit 03/15/2014 3:30p Main Office Rahel Smart 780.94 Early Satiety Fariha Whitlock 783.21 Loss Of Weight Office Visit 01/26/2014 2:45p Main Office Rahel Whitlock 780.94 Early Satiety Fariha 783.21 Loss Of Weight Office Visit 08/09/2013 9:30a Main Office Rahel Smart 350.1 Neuralgia Fariha Whitlock Trigeminal Office Visit 05/20/2013 9:00a Main Office [address] V70.0 Examination General Fariha Thakkar [facility] Rout[facility] 786.09 Dyspnea & Respiratory Abnormalities Other 401.9 Hypertension Unspec 272.0 Hypercholesterolemia Pure 789.09 Pain Abdominal Other Spec Site 427.9 Cardiac Dysrhythmia Unspec 305.1 Tobacco Use Disorder V76.51 Special Screening For Malignant Neoplasms Colon V03.82 Streptococcus Pneumoniae Vaccination Spec Other Office Visit 01/02/2012 12:00p Main Office [address] 708.0 Urticaria Allergic Fariha Thakkar 350.1 Neuralgia Trigeminal Office Visit 12/26/2011 10:00a Main Office [address] 350.1 Neuralgia Fariha Thakkar Trigeminal 305.1 Tobacco Use Disorder Office Visit 12/19/2011 11:45a Main Office [address] 350.1 Neuralgia Fariha Thakkar Trigeminal Plan of Treatment 01/24/2019 - Prashanth Penaloza, MDR10.9 Unspecified abdominal painNew Medication: Omeprazole 20 mg - 1 by mouth every dayNew Xrays:CT Abdomen & Pelvis W/ Contrast, Ordered: 01/24/19Comments:Concern for gastritis versus colitis versus pancreatitis versus obstruction versus bowel ischemia versus diverticulitis. CT today, blood work ordered.Follow up:Hold and call CT
--- OUTSIDE RECORDS SUMMARY | 2019-01-28 15:14 | XMS REPORT | Continuity of Care Document ---
:1935 External Reference #:[id number] Author Name Madonna De La Vega Care Team Providers Name Role Phone Lorie Cantor MD Primary Care Physician Unavailable Payers Date Identification Numbers Payment Provider Subscriber Expires: 2016 Policy Number: [id number] [facility] [employer] Nuzhat Manzanares PayID: [id number] [address] [address] Attn: [place] [address] Effective: 2016 Policy Number: [id number] [employer] Nuzhat Manzanares Group Number: [id number] [address] PayID: [id number] [place] [address] Expires: 2012 Policy Number: [id number] [facility] [employer] Shantanu Manzanares Group Number: [id number] [address] [address] PayID: [id number] [place] [address] Expires: 2011 Policy Number: [id number] Medicare Nuzhat Manzanares PayID: [id number] [address] [place] [address] Expires: 2014 Policy Number: [id number] [facility] [employer] Shantanu Manzanares Group Number: [id number] [address] [address] PayID: [id number] [place] [address] Expires: 2016 Policy Number: [id number] [employer] [place] Nuzhat Manzanares PayID: [id number] [address] [address] [place] [address] Problems Active Problems Provider Date Coronary arteriosclerosis Johnna Wood D.O. Onset: 07/23/2011 Coronary arteriosclerosis Johnna Wood D.O. Onset: 12/03/2011 Benign essential hypertension Laxmi Linn N.P. Onset: 04/05/2012 Hyperlipidemia Laxmi Linn N.P. Onset: 04/05/2012 Tobacco user Laxmi Linn N.P. Onset: 04/05/2012 Difficulty breathing Johnna Wood D.O. Onset: 10/06/2012 Mitral valve disorder Johnna Wood D.O. Onset: 11/18/2012 Old myocardial infarction Garo Milligan M.D. Onset: 01/05/2014 Essential hypertension Garo Milligan M.D. Onset: 10/23/2015 Family History Date Family Member(s) Observation Comments Father due to at age 93 () - cancer Mother due to at age of 84 () Mother bladder CA Siblings 3 Social History Type Date Description Comments Sex Unknown Marital Status Lives With Recent of spouse Occupation Retired Tobacco Use Start: Unknown Light tobacco smoker (10 or fewer cigarettes/day) Smoking Status Reviewed: 01/19/19 Light tobacco smoker (10 or fewer cigarettes/day) ETOH Use Consumes liquor once 1-2 drinks daily daily Tobacco Use Start: Unknown Patient is a current Smoke 5-6 cigarettes smoker, smokes every a day sometimes more. day Recreational Drug Use Denies Drug Use Exercise Type/Frequency Does not exercise Allergies, Adverse Reactions, Alerts Active Allergies Reaction Severity Comments Date Zocor rash/hives 02/12/2011 Carbamazepine extream hives 04/05/2012 Vitamin B12 hives 10/23/2015 Medications Active Medications SIG Qnty Indications Ordering Provider Date Lisinopril take one tablet 60tabs Grao SMarilin 10/20/2018 10mg Tablets by mouth twice Fariha Milligan a day Cardizem CD 1 by mouth 60caps Javier Tariq 03/31/2018 120mg Caps every day Fariha Walter ER 24HR Eliquis 1 tablet by 180tabs Alexandra Esteban, 12/24/2017 2.5mg Tablets mouth twice a N.P. day. blood thinner. Phenytoin Sodium 1 po bid 180caps Laxmi Linn, 04/05/2012 Extended N.P. 100mg Capsules Metoprolol Succinate take 2 tabs 360tabs Alexandra Esteban, 02/24/2012 ER twice daily N.P. 25mg Tablets ER 24HR Zetia 1 tablet by 90tabs Cathytanavi S. 12/03/2011 10mg Tablets mouth daily Fariha Milligan Nitrostat one sl q5min up 25tabs Cathytaybsheryl S. 02/12/2011 0.4mg Tablets to 3 doses as Fariha Milligan Sub needed Asa 1 po qd 30units Johnna Wood, 81mg D.O. History Medications Lisinopril 1 by mouth 90tabs Alexandra Esteban, 10/15/2018 - 20mg every day N.P. 10/19/2018 Tablets Cephalexin 1 tab 3 times a 9caps Torey Barkley, 12/15/2017 - 250mg day for 3 days M.D. 12/21/2017 Capsules Amlodipine Besylate 1 by mouth 90tabs R07.9 Qutaybeh S. 08/08/2016 - every day Fariha Milligan 09/05/2016 2.5mg Tablets Duoneb 1 unit nebl 540ml Omar Blum, 08/05/2016 - every 4 hours M.DMarilin,FACP 12/03/2017 0.5-2.5(3)mg/3ML as needed Solution Omeprazole 1 by mouth Other Ordering 04/21/2014 - 20mg every day Provider 05/24/[address] Naik 1 po daily 30tabs Johnna Wood, 02/19/2011 - 500mg Tablets D.O. 03/17/2011 ER Toprol XL 1 po qd 30tabs Laxmi Linn, 02/12/2011 - 25mg N.P. 04/05/2012 Tablets ER 24HR Zocor 1 po qhs 90tabs Johnna Wood, 02/12/2011 - 20mg Tablets D.O. 02/12/2011 Plavix 1 po qd 30tabs Laxmi Linn, 02/12/2011 - 75mg Tablets N.P. 10/06/2012 Lisinopril 2 tab q am, 1 Unknown - 5mg tab q pm 10/14/2018 Tablets Dulera daily Unknown - 12/07/2016 Ipratropium [place] as needed Unknown - 12/03/2017 Clopidogrel 1 by mouth 30tabs Garo S. - Bisulfate every day Fariha Milligan 09/05/2016 75mg Tablets Medications Administered in Office Medication SIG Qnty Indications Ordering Provider Date Inj, Regadenoson, 0.1 MG Tom Arcos, DO FAC 08/21/2016 Injection Technetium TC 99M Tom Arcos, DO FAC 08/21/2016 Tetrofosmin, Per Unit Dose Up To 40 Millicuries Injection Vital Signs Date Vital Result Comment 01/19/2019 10:24am Height 68 inches 5'8" Weight 124.75 lb Clothes/shoes Heart Rate 68 /min Radial BP Systolic Sitting 142 mmHg Lue reg cuff BP Diastolic Sitting 80 mmHg Lue reg cuff BP Systolic Standing 138 mmHg Lue reg cuff BP Diastolic Standing 80 mmHg Lue reg cuff BMI (Body Mass Index) 19.0 kg/m2 Ejection Fraction 50-55% Echo 01/27/18 11/08/2018 10:49am Height 68 inches 5'8" Weight 124.00 lb With clothes/shoes Heart Rate 66 /min Radial BP Systolic Sitting 115 mmHg Lue reg cuff BP Diastolic Sitting 60 mmHg Lue reg cuff BP Systolic Standing 110 mmHg Lue reg cuff BP Diastolic Standing 60 mmHg Lue reg cuff BMI (Body Mass Index) 18.9 kg/m2 Ejection Fraction 50-55% Echo 01/27/2018 05/11/2018 10:38am Height 68 inches 5'8" Weight 127.50 lb Heart Rate 68 /min BP Systolic 110 mmHg left arm BP Diastolic 70 mmHg left arm BMI (Body Mass Index) 19.4 kg/m2 Ejection Fraction 50-55% 01/27/18 Echocardiogram 02/11/2018 3:59pm Height 68 inches 5'8" Weight 127.00 lb Heart Rate 75 /min BP Systolic 162 mmHg left arm reg BP Diastolic 80 mmHg left arm reg BMI (Body Mass Index) 19.3 kg/m2 Ejection Fraction 50-60% echo 01/27/2018 12/24/2017 1:59pm Height 68 inches 5'8" Weight 127.50 lb w/shoes Heart Rate 64 /min BP Systolic Sitting 126 mmHg L/A Reg Cuff BP Diastolic Sitting 68 mmHg L/A Reg Cuff BMI (Body Mass Index) 19.4 kg/m2 Ejection Fraction 55-60% echo 09/25/2017 12/22/2017 2:28pm Height 68 inches 5'8" Weight 128.00 lb w/ shoes Heart Rate 68 /min BP Systolic Sitting 128 mmHg lue reg cuff BP Diastolic Sitting 82 mmHg lue reg cuff Respiratory Rate 18 /min BMI (Body Mass Index) 19.5 kg/m2 Ejection Fraction 55-60% echo 09/25/2017 12/04/2017 9:54am Height 68 inches 5'8" Weight 128.00 lb Heart Rate 110 /min BP Systolic Sitting 150 mmHg rue reg cuff BP Diastolic Sitting 80 mmHg rue reg cuff BP Systolic Standing 134 mmHg BP Diastolic Standing 80 mmHg Respiratory Rate 16 /min BMI (Body Mass Index) 19.5 kg/m2 Ejection Fraction 55-60% 09/25/2017 08/19/2017 1:40pm Height 68 inches 5'8" Weight 127.50 lb with shoes Heart Rate 80 /min BP Systolic Sitting 174 mmHg Ra, reg cuff BP Diastolic Sitting 88 mmHg Ra, reg cuff BMI (Body Mass Index) 19.4 kg/m2 12/09/2016 10:45am Height 68 inches 5'8" Weight 126.00 lb w/shoes Heart Rate 70 /min BP Systolic Sitting 108 mmHg LA reg cuff BP Diastolic Sitting 72 mmHg LA reg cuff BMI (Body Mass Index) 19.2 kg/m2 Ejection Fraction 50-55% Echo 08/07/16 12/09/2016 10:35am Height 68 inches 5'8" Weight 126.00 lb BMI (Body Mass Index) 19.2 kg/m2 Ejection Fraction 50% - 55% echo 08/07/16 09/09/2016 1:51pm Height 68 inches 5'8" Weight 122.00 lb Heart Rate 62 /min BP Systolic Sitting 142 mmHg right arm, reg cuff BP Diastolic Sitting 82 mmHg right arm, reg cuff BP Systolic Standing 136 mmHg right arm, reg cuff BP Diastolic Standing 78 mmHg right arm, reg cuff Respiratory Rate 20 /min BMI (Body Mass Index) 18.5 kg/m2 Ejection Fraction 55% 09/02/16 Cath 08/27/2016 8:44am Height 68 inches 5'8" Weight 119.00 lb w/shoes Heart Rate 74 /min BP Systolic Sitting 134 mmHg LA reg cuff BP Diastolic Sitting 84 mmHg LA reg cuff BMI (Body Mass Index) 18.1 kg/m2 Ejection Fraction 51% NLM 08/21/16 08/08/2016 2:20pm Height 68 inches 5'8" Weight 116.00 lb w/o shoes Heart Rate 66 /min BP Systolic Sitting 140 mmHg Rue, reg cuff BP Diastolic Sitting 80 mmHg Rue, reg cuff BP Systolic Standing 136 mmHg Rue BP Diastolic Standing 84 mmHg Rue Respiratory Rate 16 /min BMI (Body Mass Index) 17.6 kg/m2 Ejection Fraction 50-55% as of 08/07/16 echo 05/14/2016 3:38pm Height 68 inches 5'8" Weight 117.75 lb Heart Rate 60 /min BP Systolic Sitting 144 mmHg LA, reg BP Diastolic Sitting 88 mmHg LA, reg BMI (Body Mass Index) 17.9 kg/m2 Ejection Fraction 55%-60% Sung 01/11/15 10/23/2015 1:48pm Height 68 inches 5'8" Weight 119.00 lb Heart Rate 68 /min BP Systolic Sitting 140 mmHg LA, regular BP Diastolic Sitting 76 mmHg LA, regular BMI (Body Mass Index) 18.1 kg/m2 Ejection Fraction 55-60% Sung 01/11/15 03/13/2015 4:31pm Height 68 inches 5'8" Weight 114.50 lb w/shoes Heart Rate 64 /min BP Systolic Sitting 162 mmHg LA reg cuff BP Diastolic Sitting 90 mmHg LA reg cuff Respiratory Rate 16 /min BMI (Body Mass Index) 17.4 kg/m2 Ejection Fraction 55-60 Sung 01/11/15 12/07/2014 2:59pm Height 68 inches 5'8" Weight 119.00 lb Heart Rate 80 /min BP Systolic 134 mmHg LA reg BP Diastolic 64 mmHg LA reg BMI (Body Mass Index) 18.1 kg/m2 Ejection Fraction 50-55% 10/11/14 10/25/2014 2:11pm Height 68 inches 5'8" Weight 119.00 lb Heart Rate 68 /min BP Systolic 142 mmHg LA reg BP Diastolic 72 mmHg LA reg BP Systolic Sitting 140 mmHg home unit BP Diastolic Sitting 78 mmHg home unit BMI (Body Mass Index) 18.1 kg/m2 05/25/2014 11:00am Height 68 inches 5'8" Weight 116.00 lb w/shoes Heart Rate 68 /min BP Systolic Sitting 126 mmHg LA reg cuff BP Diastolic Sitting 68 mmHg LA reg cuff Respiratory Rate 14 /min BMI (Body Mass Index) 17.6 kg/m2 04/21/2014 3:19pm Height 68 inches 5'8" Weight 114.75 lb Heart Rate 72 /min BP Systolic Sitting 140 mmHg LA reg cuff BP Diastolic Sitting 74 mmHg LA reg cuff BMI (Body Mass Index) 17.4 kg/m2 01/05/2014 3:37pm Height 68 inches 5'8" Weight 121.75 lb Heart Rate 76 /min BP Systolic Sitting 156 mmHg LA small cuff BP Diastolic Sitting 90 mmHg LA small cuff Respiratory Rate 16 /min BMI (Body Mass Index) 18.5 kg/m2 07/04/2013 9:56am Height 68 inches 5'8" Weight 124.75 lb Heart Rate 68 /min Regular BP Systolic Sitting 130 mmHg BP Diastolic Sitting 72 mmHg BMI (Body Mass Index) 19.0 kg/m2 03/23/2013 10:48am Height 68 inches 5'8" Weight 127.50 lb Heart Rate 68 /min Regular BP Systolic Sitting 130 mmHg BP Diastolic Sitting 80 mmHg BMI (Body Mass Index) 19.4 kg/m2 12/20/2012 10:06am Height 68 inches 5'8" Weight 133.00 lb Heart Rate 60 /min BP Systolic 144 mmHg BP Diastolic 74 mmHg BMI (Body Mass Index) 20.2 kg/m2 11/18/2012 1:48pm Height 68 inches 5'8" Weight 137.12 lb Heart Rate 64 /min Regular BP Systolic Sitting 144 mmHg BP Diastolic Sitting 72 mmHg BMI (Body Mass Index) 20.8 kg/m2 10/06/2012 10:59am Height 68 inches 5'8" Weight 136.75 lb Heart Rate 72 /min Irregular BP Systolic Sitting 130 mmHg BP Diastolic Sitting 82 mmHg BMI (Body Mass Index) 20.8 kg/m2 04/05/2012 2:29pm Height 68 inches 5'8" Weight 141.00 lb Heart Rate 80 /min BP Systolic Sitting 152 mmHg BP Diastolic Sitting 82 mmHg Respiratory Rate 20 /min BMI (Body Mass Index) 21.4 kg/m2 12/03/2011 1:05pm Height 68 inches 5'8" Weight 158.00 lb Heart Rate 72 /min BP Systolic Sitting 152 mmHg BP Diastolic Sitting 72 mmHg BMI (Body Mass Index) 24.0 kg/m2 07/23/2011 10:47am Height 68 inches 5'8" Weight 152.00 lb Heart Rate 68 /min BP Systolic Sitting 144 mmHg BP Diastolic Sitting 80 mmHg BMI (Body Mass Index) 23.1 kg/m2 03/17/2011 2:02pm Height 68 inches 5'8" Weight 150.00 lb Heart Rate 50 /min BP Systolic Sitting 136 mmHg L BP Diastolic Sitting 70 mmHg L BMI (Body Mass Index) 22.8 kg/m2 03/06/2011 10:59am Height 68 inches 5'8" Weight 149.00 lb Heart Rate 62 /min BP Systolic Sitting 132 mmHg BP Diastolic Sitting 62 mmHg BMI (Body Mass Index) 22.7 kg/m2 02/19/2011 11:01am Height 68 inches 5'8" Weight 150.00 lb Heart Rate 51 /min BP Systolic Sitting 150 mmHg BP Diastolic Sitting 80 mmHg BMI (Body Mass Index) 22.8 kg/m2 Results Test Date Facility Test Result H/L Range Note Lipid Panel - 12/22/2018 [facility] Creatine 43 U/L N 10-[address] Kinase(CK) [place] [address] [phone] Comp Metabolic 12/22/2018 [facility] Sodium 140 mmol/L N 135- [address] [place] [address] [phone] Potassium 4.3 mmol/L N 3.5-5.0 Chloride 103 mmol/L N 101-111 Co2 Carbon Dioxide 30 mmol/L N 22-32 Anion Gap 7 mmol/L N 2-11 Glucose 104 mg/dL High 70-100 Blood Urea Nitrogen 10 mg/dL N 6-24 Creatinine 0.64 mg/dL N 0.51-0.95 BUN/Creatinine Ratio 15.6 N 8-20 Calcium 9.5 mg/dL N 8.6-10.3 Total Protein 7.1 g/dL N 6.4-8.9 Albumin 4.3 g/dL N 3.2-5.2 Globulin 2.8 g/dL N 2-4 Albumin/Globulin Ratio 1.5 N 1-3 Total Bilirubin 0.40 mg/dL N 0.2-1.0 Alkaline Phosphatase 145 U/L High 34-104 Alt 14 U/L N 7-52 Ast 14 U/L N 13-39 Egfr Non- 88.8 >60 Egfr 107.5 >60 1 Lipid Profile 12/22/2018 [facility] Triglycerides 85 mg/dL 2 (Trig/Chol/HDL) [address] [place] [address] [phone] Cholesterol 224 mg/dL 3 HDL Cholesterol 87.5 mg/dL 4 LDL Cholesterol 120 mg/dL 5 Cath Panel 12/11/2017 [facility] Partial 29.5 seconds N 26.0- 36.3 6, [address] [place] [address] PTT [phone] CBC Auto 12/11/2017 [facility] White Blood 5.1 10^3/uL N 3.5- 10.[address] Count [place], [place] [id number] [phone] Red Blood Count 4.43 10^6/uL N 4.0-5.4 [...] Red Blood Cells % 0 Inr/Protime 12/11/2017 [facility] Inr 0.86 N 0.77-1.[address] [place] [address] [phone] Basic Metabolic 12/11/2017 [facility] Sodium 140 mmol/L N 139- 145 Panel [address] [place] [address] [phone] Potassium 4.3 mmol/L N 3.5-5.0 Chloride 105 mmol/L N 101-111 Co2 Carbon Dioxide 27 mmol/L N 22-32 Anion Gap 8 mmol/L N 2-11 Glucose 101 mg/dL High 70-100 Blood Urea Nitrogen 14 mg/dL N 6-24 Creatinine 0.63 mg/dL N 0.51-0.95 BUN/Creatinine Ratio 22.2 High 8-20 Calcium 9.4 mg/dL N 8.6-10.3 Egfr Non- 90.7 >60 Egfr 116.6 >60 8 Comp Metabolic Panel 09/01/2017 [facility] Sodium 140 mmol/L N 133-145 [address] [place] [address] [phone] Potassium 3.9 mmol/L N 3.5-5.0 Chloride 103 mmol/L N 101-111 Co2 Carbon Dioxide 30 mmol/L N 22-32 Anion Gap 7 mmol/L N 2-11 Glucose 107 mg/dL High 70-100 Blood Urea Nitrogen 17 mg/dL N 6-24 Creatinine 0.64 mg/dL N 0.51-0.95 BUN/Creatinine Ratio 26.6 High 8-20 Calcium 9.4 mg/dL N 8.6-10.3 Total Protein 6.8 g/dL N 6.4-8.9 Albumin 4.3 g/dL N 3.2-5.2 Globulin 2.5 g/dL N 2-4 Albumin/Globulin Ratio 1.7 N 1-3 Total Bilirubin 0.50 mg/dL N 0.2-1.0 Alkaline Phosphatase 120 U/L High 34-104 Egfr Non- 89.3 >60 Egfr 114.8 >60 9 Lipid Panel - [facility] 09/01/2017 [facility] Creatine 63 U/L N 10- 223 [address] [facility] Kinase(CK) [place] [address] [phone] Laboratory test 09/01/2017 [facility] Alt 14 U/L N 7-52 finding [address] [place] [address] [phone] Ast 16 U/L N 13-39 Lipid Profile 09/01/2017 [facility] Triglycerides 80 mg/dL 10 (Trig/Chol/HDL) [address] [place] [address] [phone] Cholesterol 245 mg/dL 11 HDL Cholesterol 91.2 mg/dL 12 LDL Cholesterol 138 mg/dL 13 CBC Auto Diff 12/28/2015 [facility] White Blood 5.7 10^3/uL N 3.5-10.[address] [place] [address] [phone] Red Blood Count 4.31 10^6/uL N 4.0-5.4 [...] Cells % 0.1 N Comp Metabolic Panel 12/28/2015 [facility] Sodium 138 mmol/L N 133-[address] [place] [address] [phone] Potassium 4.2 mmol/L N 3.5-5.0 Chloride 101 [...] 84.9 N >60 Egfr 109.2 N >60 14 Lipid Profile 12/28/2015 [facility] Triglycerides 104 mg/dL N 15 (Trig/Chol/HDL) [address] [place] [address] [phone] Cholesterol 239 mg/dL N 16 HDL Cholesterol 87.0 mg/dL N 17 LDL Cholesterol 131 mg/dL N 18 Laboratory test 06/26/2014 [facility] Free T4 0.91 ng/mL N 0.61-1.12 19, 20 finding [address] [place] [address] [phone] Total T3 1.26 ng/mL N 0.87-1.78 21 Free T3 3.40 pg/mL N 2.5-3.9 22 TSH (Thyroid Stimulating Horm) 1.43 IU/mL N 0.34-5.60 23 Cortisol 17.35 g/dL N 24 Carcinoembryonic Antigen 2.6 ng/mL N 0.1-5.0 25 Erythrocyte Sed Rate 15 mm/Hr N 0-40 26 Vitamin D, 25 06/26/2014 [facility] 25-Hydroxy Vitamin <4.0 ng/ mL N Hydroxy [address] [place] [address] [phone] 25-Hydroxy Vitamin D3 23 ng/mL N 25-Hydroxy Vitamin D Total 23 ng/mL N 27 Celiac Panel 06/26/2014 [facility] Immunoglobulin A 162 mg/dL N 61 - [address] [place] [address] [phone] Tissue Transglutaminase IgA Ab <1.2 U/mL N 28 Celiac Interpretation See Comment N 29 Comp Metabolic Panel 06/26/2014 [facility] Sodium 140 mmol/L N 133-145 [address] [place] [address] [phone] Potassium 3.5 mmol/L N 3.5-5.0 30 Chloride [...] 115.7 N >60 31 Lipid Profile 06/26/2014 [facility] Triglycerides 137 mg/dL N 32 (Trig/Chol/HDL) [address] [place] [address] [phone] Cholesterol 225 mg/dL N 33 HDL Cholesterol 68.8 mg/dL N 34 LDL Cholesterol 129 mg/dL N 35 Lipid Profile 03/30/2013 [facility] Triglycerides 114 mg/dL 40-200 (Trig/Chol/HDL) [address] [place] [address] [phone] Cholesterol 249 mg/dL High Less than 200 HDL Cholesterol 82 mg/dL High 40-60 36 Cholesterol/HDL Ratio 3.0 Average 1-4.44 LDL Cholesterol 144.2 High Less Than 100 37 Laboratory test finding 03/30/2013 [facility] Ast 18 U/L 12- 42 [address] [place] [address] [phone] Alt 17 U/L 14-54 CBC Auto Diff 03/30/2013 [facility] White Blood 5.1 10^3/uL 4.8-10.8 [address] [place] [address] [phone] Red Blood Count 4.43 10^6/uL 4.0-5.4 Hemoglobin 15.0 g/dL 12.0-16.0 Hematocrit 44 % 35-47 Mean Corpuscular Volume 100 fL High 80-97 Mean Corpuscular Hemoglobin 34 pg High 27-31 Mean Corpuscular HGB Conc 34 g/dL 31-36 Red Cell Distribution Width 13 % 10.5-15 Platelet Count 201 10^3/uL 150-450 Mean Platelet Volume 8 um3 7.4-10.4 Abs Neutrophils 2.7 10^3/uL 1.5-7.7 Abs Lymphocytes 1.8 10^3/uL 1.0-4.8 Abs Monocytes 0.4 10^3/uL 0-0.8 Abs Eosinophils 0.1 10^3/uL 0-0.6 Abs Basophils 0 10^3/uL 0-0.2 Abs Nucleated RBC 0 10^3/uL Granulocyte % 52.7 % 38-83 Lymphocyte % 35.2 % 25-47 Monocyte % 8.4 % 1-9 Eosinophil % 2.8 % 0-6 Basophil % 0.9 % 0-2 Nucleated Red Blood Cells % 0.1 Comp Metabolic Panel 03/30/2013 [facility] Sodium 139 mmol/L 133-[address] [place] [address] [phone] Potassium 4.0 mmol/L 3.5-5.0 Chloride 103 mmol/L 101-111 Co2 Carbon Dioxide 29.0 mmol/L 22-32 Anion Gap 7.0 mmol/L 2-11 Glucose 102 mg/dL High 70-100 Blood Urea Nitrogen 12 mg/dL 6-24 Creatinine 0.70 mg/dL 0.50-1.40 BUN/Creatinine Ratio 17.1 8-20 Calcium 9.5 mg/dL 8.1-9.9 Total Protein 6.9 g/dL 6.2-8.1 Albumin 4.4 g/dL 3.2-5.2 Globulin 2.5 g/dL 2-4 Albumin/Globulin Ratio 1.8 1-3 Total Bilirubin 0.8 mg/dL 0.4-1.5 Alkaline Phosphatase 94 U/L 30-110 Egfr Non- 81.4 >60 Egfr 104.6 >60 38 Liver Function 02/18/2012 [facility] Total Protein 6.5 GM/DL 6.2-8.1 Panel [address] [place] [address] [phone] Albumin 4.0 GM/DL 3.2-5.2 Globulin 2.5 GM/DL 2-4 Albumin/Globulin Ratio 1.6 1-3 Bilirubin Total 0.5 mg/dL 0.4-1.5 39 Bilirubin Direct 0.1 mg/dL 0.1-0.5 Indirect Bilirubin 0.4 mg/dL 0.3-1.0 40 Alkaline Phosphatase 104 U/L 30-110 Alt (SGPT) 17 U/L 14-54 Ast (Sgot) 19 U/L 12-42 Lipid Profile 02/18/2012 [facility] Triglyceride 100 mg/dL 40 -200 (Trig/Chol/HDL) [address] [place] [address] [phone] Cholesterol 249 mg/dL High Less Than 200 41 High Density Lipoprotein 75 mg/dL High 40-60 42 Cholesterol/HDL Ratio 3.32 AVERAGE 1-4.44 Low Density Lipoprotein 154 mg/dL High Less Than 100 43 Lipid Profile 11/11/2011 [facility] Triglyceride 126 mg/dL 40 -200 (Trig/Chol/HDL) [address] [place] [address] [phone] Cholesterol 280 mg/dL High Less Than 200 44 High Density Lipoprotein 69 mg/dL High 40-60 45 Cholesterol/HDL Ratio 4.06 AVERAGE 1-4.44 Low Density Lipoprotein 186 mg/dL High Less Than 100 46 1 Because ethnic data is not always readily [...] 15-29 5 Kidney failure <15 (or dialysis) 2 Desirable: <150 Borderline High: 150-199 High: 200-499 Very High: >500 3 Desirable: <200 Borderline High: 200-239 High: >239 4 Low: <40 Desirable: 40-60 High: >60 5 Desirable: <100 Near Optimal: 100-129 Borderline High: 130-159 High: 160-189 Very High: >189 6 PRIOR TO PACER IMPLANT 7 PRIOR TO PACER IMPLANT 8 Because ethnic data is not always readily [...] 15-29 5 Kidney failure <15 (or dialysis) 9 Because ethnic data is not always readily [...] 15-29 5 Kidney failure <15 (or dialysis) 10 Desirable: <150 Borderline High: 150-199 High: 200-499 Very High: >500 11 Desirable: <200 Borderline High: 200-239 High: >239 12 Low: <40 Desirable: 40-60 High: >60 13 Desirable: <100 Near Optimal: 100-129 Borderline High: 130-159 High: 160-189 Very High: >189 14 Because ethnic data is not always [...] 5 Kidney failure <15 (or dialysis) 15 Desirable <150 Borderline high 150-199 High 200-499 Very High >500 16 Desirable <200 Borderline high 200-239 High >239 17 Low <40 Desirable: 40-60 High: >60 18 Desirable: <100 mg/dL Near Optimal: 100-129 mg/dL Borderline High: 130-159 mg/dL High: 160-189 mg/dL Very High: >189 mg/dL 19 FASTING 20 FASTING 21 FASTING 22 FASTING 23 FASTING 24 AM 8.7-22.4 PM <10 25 Nonsmokers: < 2.9 ng/mL Some smokers may have elevated CEA, usually <5.0 ng/mL. Serum markers are not specific for malignancy, and values may vary by method. The testing method is an immunoenzymatic assay spinning mule operator by [email or web address] performed on [email or web address] DXI 600. Do not interpret serum CEA levels as absolute evidence of the presence or the absence of malignant disease. Use serum CEA in conjunction with information from the clinical evaluation of the patient and other diagnostic procedures. 26 FASTING 27 REFERENCE VALUE 25-HYDROXY D TOTAL (D2+D3) Optimum levels in the healthy population are 20-50, patients with bone disease may benefit from higher levels within this range. Test Performed by: [place] [address] Correction Officer Head: John Velasquez M.D. 28 REFERENCE VALUE <4.0 (Negative) Test Performed by: [place] [address] Correction Officer Head: John Velasquez M.D. 29 Negative serology. Celiac disease unlikely. However, approximately 10% of patients with celiac disease are seronegative. Also, patients who are already adhering to a gluten-free diet may be seronegative. If celiac disease is highly clinically suspected, consider HLA-DQ typing. Test Performed by: [place] [address] Correction Officer Head: John Velasquez M.D. 30 Potassium reference range changed effective 06/11/14 [...] 130-159 High 160-189 Very High >189 36 HDL Interpretation: Undesirable: High Risk: Less than 40 mg/dL Desirable: Low Risk: Greater than 60 mg/dL 37 LDL Interpretation: Low Risk Optimal Level: LDL Less than 100 mg/dL Near or Above Optimal: LDL 100-129 mg/dL Borderline High Risk: LDL 130-159 mg/dL High Risk: LDL 160-189 mg/dL Very High Risk: LDL Greater than 189 mg/dL 38 Because ethnic data is not always readily [...] 15-29 5 Kidney failure <15 (or dialysis) 39 A metabolite of Naproxen, O-desmethylnaproxen, has been shown to interfere with the Jendrassik-Minerva method for measuring total bilirubin. Samples from patients who have taken Naproxen have shown spurious elevation in total bilirubin levels. 40 Please note updated reference range, effective 02/28/10 41 CHOLESTEROL INTERPRETATION: Desirable: Less than 200 MG/DL Borderline-High Risk: 200-239 MG/DL High-Risk: 240 MG/DL and over 42 HDL INTERPRETATION: Undesirable: High Risk: Less than 40 MG/DL Desirable: Low Risk: Greater than 60 MG/DL 43 LDL INTERPRETATION: Low Risk Optimal Level: LDL Less than 100 MG/DL Near or Above Optimal: LDL 100-129 MG/DL Borderline High Risk: LDL 130-159 MG/DL High Risk: LDL 160-189 MG/DL Very High Risk: LDL Greater than 189 MG/DL 44 CHOLESTEROL INTERPRETATION: Desirable: Less than 200 MG/DL Borderline-High Risk: 200-239 MG/DL High-Risk: 240 MG/DL and over 45 HDL INTERPRETATION: Undesirable: High Risk: Less than 40 MG/DL Desirable: Low Risk: Greater than 60 MG/DL 46 LDL INTERPRETATION: Low Risk Optimal Level: LDL Less than 100 MG/DL Near or Above Optimal: LDL 100-129 MG/DL Borderline High Risk: LDL 130-159 MG/DL High Risk: LDL 160-189 MG/DL Very High Risk: LDL Greater than 189 MG/DL Procedures Date Code Description Status 01/04/2019 94227 Icd Eval Sing,Dual,Multi Lead Remote Recpt Transm Tech Completed Rev Tech S 01/04/2019 94725 Pacemaker Check Remote Up To 90Days Completed Single,Dual,Multiple Lead 12/08/2018 65169 Treadmill Interp/Report Only Completed 12/08/2018 55635 Stress Test Supervsn W/Out I/R Completed 11/08/2018 42125 EKG Tracing & Interpretation Completed 10/04/2018 02015 Icd Eval Sing,Dual,Multi Lead Remote Recpt Transm Tech Completed Rev Tech S 10/04/2018 16170 Icd Eval Sing,Dual,Multi Lead Remote Recpt Transm Tech Completed Rev Tech S 10/04/2018 19735 Pacemaker Check Remote Up To 90Days Completed Single,Dual,Multiple Lead 10/04/2018 36845 Pacemaker Check Remote Up To 90Days Completed Single,Dual,Multiple Lead 07/05/2018 64641 Pacemaker Check Remote Up To 90Days Completed Single,Dual,Multiple Lead 07/05/2018 85155 Pacemaker Check Remote Up To 90Days Completed Single,Dual,Multiple Lead 07/05/2018 63554 Icd Eval Sing,Dual,Multi Lead Remote Recpt Transm Tech Completed Rev Tech S 07/05/2018 15356 Icd Eval Sing,Dual,Multi Lead Remote Recpt Transm Tech Completed Rev Tech S 03/29/2018 19932 Icd Eval Sing,Dual,Multi Lead Remote Recpt Transm Tech Completed Rev Tech S 03/29/2018 30952 Pacemaker Check Remote Up To 90Days Completed Single,Dual,Multiple Lead 02/03/2018 35050 Treadmill Interp/Report Only Completed 02/03/2018 73165 Stress Test Supervsn W/Out I/R Completed 01/27/2018 22959 ECHO Transthoracic, Real-Time 2D With Doppler And Color Completed Flow 01/27/2018 51717 ECHO Transthoracic, Real-Time 2D With Doppler And Color Completed Flow 01/05/2018 74651 Pace Maker Eval W/Iterative Adjment Dual Lead Completed 01/05/2018 68693 Pace Maker Eval W/Iterative Adjment Dual Lead Completed 12/16/2017 34812 Pace Maker Eval W/Iterative Adjment Dual Lead Completed 12/16/2017 54716 Pace Maker Eval W/Iterative Adjment Dual Lead Completed 12/15/2017 28129 Pace Maker Eval W/Iterative Adjment Dual Lead Completed 12/15/2017 95591 EKG, Interpretation Only Completed 12/14/2017 95738 Perm Pacemaker Av Sequential Atrial And Ventricular Completed 12/14/2017 88145 EKG, Interpretation Only Completed 12/14/2017 08050 Moderate Sedation Services; Same Phys Intl 15 Mins; PT Completed >=5 Years 12/09/2017 13089 Holter Monitor Review (24 hr)dr review & interp only Completed 12/04/2017 81617 EKG Tracing & Interpretation Completed 10/11/2017 66091 EKG, Interpretation Only Completed 09/25/2017 47746 ECHO Transthoracic, Real-Time 2D With Doppler And Color Completed Flow 09/25/2017 60985 ECHO Transthoracic, Real-Time 2D With Doppler And Color Completed Flow 08/19/2017 91497 EKG Tracing & Interpretation Completed 12/09/2016 14140 EKG Tracing & Interpretation Completed 09/02/2016 45457 Left Heart Cath. Incl S/I Coronaries, Angio S/I V Gram Completed If Done 08/27/2016 04892 Holter Monitor Review (24 hr)dr review & interp only Completed 08/26/2016 01448 ECG Monitor/Recording W/Visual Superimposition Scanning Completed 08/21/2016 50816 Stress Test Completed 08/21/2016 07110 Myocardial Perfusion Imaging Tomographic (Spect) Completed Multiple Studies 08/08/2016 48855 EKG Tracing & Interpretation Completed 08/07/2016 68565 ECHO Transthoracic, Real-Time 2D With Doppler And Color Completed Flow 08/03/2016 94636 EKG, Interpretation Only Completed 08/02/2016 93321 EKG, Interpretation Only Completed 08/01/2016 70418 EKG, Interpretation Only Completed 05/22/2016 38012 ECHO Transthoracic, Real-Time 2D With Doppler And Color Completed Flow 05/14/2016 75374 EKG Tracing & Interpretation Completed 03/17/2015 29703 Holter Monitor Review (24 hr)dr review & interp only Completed 03/13/2015 35762 EKG Tracing & Interpretation Completed 01/11/2015 32810 Color Flow Doppler/Interp & Reprt Completed 01/11/2015 74456 Pulse Wave/Continuous-Interp.RPT Completed 01/11/2015 71678 Echocardiography, Transesophageal, Real Time W/Image 2D Completed W/W/O M-M 12/07/2014 96653 EKG Tracing & Interpretation Completed 10/11/2014 79791 ECHO Transthoracic, Real-Time 2D With Doppler And Color Completed Flow 04/21/2014 26305 EKG Tracing & Interpretation Completed 02/21/2014 00459 Holter Monitor Review (24 hr)dr review & interp only Completed 02/01/2014 87299 Color Flow Doppler/Interp & Reprt Completed 02/01/2014 75905 Pulse Wave/Continuous-Interp.RPT Completed 02/01/2014 52302 Echocardiography, Transesophageal, Real Time W/Image 2D Completed W/W/O M-M 01/23/2014 80354 ECHO Transthoracic, Real-Time 2D With Doppler And Color Completed Flow 01/05/2014 19231 EKG Tracing & Interpretation Completed 07/19/2013 12609 Treadmill Interp/Report Only Completed 07/19/2013 73320 Stress Test Supervsn W/Out I/R Completed 11/23/2012 89030 ECHO Stress Test Incl Perf Contiuous ekg Monitoring Completed W/Phys Superv 11/23/2012 97023 ECHO Stress Test Incl Perf Contiuous ekg Monitoring Completed W/Phys Superv 10/21/2012 95757 ECHO Transthoracic, Real-Time 2D With Doppler And Color Completed Flow 03/26/2011 96815819 Mammogram Completed 02/19/2011 02115 EKG Tracing & Interpretation Completed 01/27/2011 84349 EKG, Interpretation Only Completed 01/26/2011 08671 EKG, Interpretation Only Completed 01/25/2011 17062 Left Heart Cath. Incl S/I Coronaries, Angio S/I V Gram Completed If Done 01/25/2011 90822 EKG, Interpretation Only Completed 01/25/2011 62037 Ptca W/Intracor Stent Completed 01/25/2011 28847 IV Rx Trancath Therapy(Nitro/Dina) Completed Encounters Type Date Location Provider Dx Diagnosis Office Visit 01/19/2019 [facility] Alexandra Esteban, I49.5 Sick sinus 10:30a N.P. syndrome Z95.0 Presence of cardiac pacemaker I48.0 Paroxysmal atrial fibrillation I25.10 [facility] heart disease of [place] coronary artery w/o [facility] R94.31 Abnormal electrocardiogram [ECG] [EKG] R00.2 Palpitations Office Visit 11/08/2018 11:00a [facility] Alexandra Esteban, I49.5 Sick sinus N.P. syndrome Z95.0 Presence of cardiac pacemaker I34.9 Nonrheumatic mitral valve disorder, unspecified R00.2 Palpitations I34.0 Nonrheumatic mitral (valve) insufficiency I48.0 Paroxysmal atrial fibrillation I25.110 Athscl heart disease of [place] cor art w unstable [facility] pctrs Office Visit 05/11/2018 [place] Garo S. I34.9 Nonrheumatic 11:00a Cardiology Fariha Milligan mitral valve disorder, unspecified I49.5 Sick sinus syndrome R00.2 Palpitations I34.0 Nonrheumatic mitral (valve) insufficiency I36.1 Nonrheumatic tricuspid (valve) insufficiency I27.20 Pulmonary hypertension, unspecified Z95.0 Presence of cardiac pacemaker I10 Essential (primary) hypertension I48.0 Paroxysmal atrial fibrillation Office Visit 02/11/2018 3:30p [place] [facility] Alexandra SMarilin I25.118 Athscl heart Foster, N.P. disease of [place] [facility] I34.9 Nonrheumatic mitral valve disorder, unspecified I48.0 Paroxysmal atrial fibrillation Z95.0 Presence of cardiac pacemaker I34.0 Nonrheumatic mitral (valve) insufficiency Office Visit 12/24/2017 2:00p [place] [facility] Alexandra S. I48.0 Paroxysmal atrial Foster, N.P. fibrillation Z95.0 Presence of cardiac pacemaker I49.5 Sick sinus syndrome R00.2 Palpitations E78.4 Other hyperlipidemia I25.118 Athscl heart disease of [place] cor art w oth [facility] pctrs Office Visit 12/04/2017 10:00a [place] [facility] Alexandra Esteban, R00.2 Palpitations Of [employer] Supervisor N.P. E78.4 Other hyperlipidemia I25.118 Athscl heart disease of [place] cor art w [facility] pctrs I49.1 Atrial premature depolarization Office Visit 10/14/2017 [facility] J18.9 Pneumonia, 3:18p Assoc,pc Van, [employer] unspecified Hospitalists organism J09.x1 Influenza due to ident novel influenza A virus w pneumonia J44.1 Chronic obstructive pulmonary disease w (acute) exacerbation E87.6 Hypokalemia Office Visit 10/13/2017 [facility] J18.9 Pneumonia, 3:17p Assoc,pc Van, [employer] unspecified Hospitalists organism J09.x1 Influenza due to ident novel influenza A virus w pneumonia J44.1 Chronic obstructive pulmonary disease w (acute) exacerbation E87.6 Hypokalemia Office Visit 10/12/2017 [facility] J18.9 Pneumonia, 3:16p Assoc,pc Van, [employer] unspecified Hospitalists organism J09.x1 Influenza due to ident novel influenza A virus w pneumonia J44.1 Chronic obstructive pulmonary disease w (acute) exacerbation E87.6 Hypokalemia Office Visit 10/11/2017 3:13p [facility] Haylie J09.x1 Influenza due Assoc,susanne El NP to ident novel Hospitalists influenza A virus w pneumonia J44.1 Chronic obstructive pulmonary disease w (acute) exacerbation E87.6 Hypokalemia Office Visit 10/10/2017 3:09p [facility] Omar Hollingsworth J09.x1 Influenza due Assoc,susanne Blum M.D.,FACP to ident novel Hospitalists influenza A virus w pneumonia E87.6 Hypokalemia J44.1 Chronic obstructive pulmonary disease w (acute) exacerbation Office Visit 08/19/2017 2:00p [place] [facility] Cathytaybsheryl S. I25.118 Raciel Milligan M.D. disease of [place] cor [facility] I49.1 Atrial premature depolarization E78.4 Other hyperlipidemia R06.02 Shortness of breath Office Visit 12/09/2016 11:00a [place] [facility] Qutaybsheryl S. I25.118 Raciel Milligan M.D. disease of [place] cor art w oth ang pctrs R94.39 Abnormal result of other cardiovascular function study I48.0 Paroxysmal atrial fibrillation I49.1 Atrial premature depolarization F17.210 Nicotine dependence, cigarettes, uncomplicated Office Visit 09/09/2016 2:00p [place] [facility] Torey Hollingsworth I25.118 Athscl heart Of [employer] Supervisor [facility] Fariha Barkley disease of [place] cor art w oth ang pctrs R94.39 Abnormal result of other cardiovascular function study Office Visit 08/27/2016 9:00a [place] [facility] ONUR Boss I25.118 Athscl heart disease of [place] cor art w oth ang pctrs R94.39 Abnormal result of other cardiovascular function study R07.9 Chest pain, unspecified Office Visit 08/08/2016 2:30p [place] [facility] ONUR Boss I25.118 Athscl heart Of [facility] disease of [place] cor art w oth ang pctrs I48.91 Unspecified atrial fibrillation J18.9 Pneumonia, unspecified organism R07.9 Chest pain, unspecified Office Visit 08/03/2016 [facility] Omar Hollingsworth J18.9 Pneumonia, 1:42p Assoc,susanne Blum M.D.,[facility] unspecified Hospitalists organism I25.10 Athscl heart disease of [place] coronary artery w/o ang pctrs I48.91 Unspecified atrial fibrillation Office Visit 08/03/2016 4:16p [place] [facility] Tom De La Cruz I21.3 St elevation Of [facility] Arcos, DO (Stemi) FACC myocardial infarction of [facility] site Office Visit 08/02/2016 1:42p [facility] Jonathan J18.9 Pneumonia, Assoc,susanne Caceres M.D. unspecified Hospitalists organism I25.10 Athscl heart disease of [place] coronary artery w/o ang pctrs R79.89 Other specified abnormal findings of blood chemistry A41.9 Sepsis, unspecified organism Office Visit 08/02/2016 4:14p [place] [facility] Tom SMarilin I21.3 St elevation Of [facility] Arcos, DO (Stemi) FACC myocardial infarction of [facility] site Office Visit 08/01/2016 1:41p [facility] Ashu J18.9 Pneumonia, Assoc,pc Magdaleno, unspecified Hospitalists N.P. organism I25.10 Athscl heart disease of [place] coronary artery w/o ang pctrs R79.89 Other specified abnormal findings of blood chemistry A41.9 Sepsis, unspecified organism Office Visit 05/14/2016 [place] Qutaybeh S. I34.0 Nonrheumatic mitral 4:00p Jaqui Milligan M.D. (valve) insufficiency I25.2 Old myocardial infarction I25.10 Athscl heart disease of [place] coronary artery w/o ang pctrs I10 Essential (primary) hypertension R94.31 Abnormal electrocardiogram [ECG] [EKG] Office Visit 10/23/2015 2:00p [place] [facility] Qutaybeh S. R42 Dizziness and Fariha Milligan giddiness I34.0 Nonrheumatic mitral (valve) insufficiency I25.2 Old myocardial infarction I25.10 Athscl heart disease of [place] coronary artery w/o ang pctrs I10 Essential (primary) hypertension E78.4 Other hyperlipidemia Office Visit 03/13/2015 4:40p [place] [facility] Qutaybeh S. 424.0 Mitral Valve Fariha Milligan Disorder 412 Myocardial Infarction Old 780.4 Dizziness & Giddiness 414.01 Coronary Atherosclerosis Elim Ira 401.1 Hypertension Benign Office Visit 01/11/2015 11:09a [place] [facility] Qutaybeh S. 412 Myocardial Fariha Milligan Infarction Old 414.9 Ischemic Heart Disease Chronic Unspec 272.4 Hyperlipidemia Other Unspec 424.0 Mitral Valve Disorder Office Visit 12/07/2014 [place] Denisaybsheryl S. 401.1 Hypertension 3:00p Jaqui Milligan M.D. Benign 414.9 Ischemic Heart Disease Chronic Unspec 272.4 Hyperlipidemia Other Unspec 397.0 Tricuspid Valve Disease 424.0 Mitral Valve Disorder 414.01 Coronary Atherosclerosis Elim Ira 412 Myocardial Infarction Old Office Visit 10/25/2014 2:30p [place] [facility] Eva Merida, 401.1 Hypertension Benign PA 427.69 Premature Beats Other 414.9 Ischemic Heart Disease Chronic Unspec 272.4 Hyperlipidemia Other Unspec 397.0 Tricuspid Valve Disease 416.8 Pulmonary Heart Disease Other Chronic Office Visit 05/25/2014 11:00a [place] [facility] Eva Merida PA 424.0 Mitral Valve Disorder 401.1 Hypertension Benign 414.01 Coronary Atherosclerosis Elim Ira 427.69 Premature Beats Other Office Visit 04/21/2014 3:20p [place] [facility] Garo S. 424.0 Mitral Valve Fariha Milligan Disorder 414.9 Ischemic Heart Disease Chronic Unspec 401.1 Hypertension Benign 414.01 Coronary Atherosclerosis Elim Ira 412 Myocardial Infarction Old 272.4 Hyperlipidemia Other Unspec 427.69 Premature Beats Other Office Visit 02/01/2014 8:00a [place] [facility] Garo S. 424.0 Mitral Valve Fariha Milligan Disorder 414.9 Ischemic Heart Disease Chronic Unspec Office Visit 01/05/2014 [place] Garo S. 414.01 Coronary 3:40p Cardiology Fariha Milligan Atherosclerosis Elim Ira 786.09 Dyspnea & Respiratory Abnormalities Other 401.1 Hypertension Benign 424.0 Mitral Valve Disorder 272.4 Hyperlipidemia Other Unspec 412 Myocardial Infarction Old 305.1 Tobacco Use Disorder Office Visit 07/04/2013 Radha Oropeza 414.01 Coronary 10:00a Cardiology Ron Wood Atherosclerosis Elim Ira 786.09 Dyspnea & Respiratory Abnormalities Other 401.1 Hypertension Benign 424.0 Mitral Valve Disorder 272.4 Hyperlipidemia Other Unspec Office Visit 03/23/2013 Radha Oropeza 414.01 Coronary 11:00a Cardiology Darrick WoodOMarilin Atherosclerosis Elim Ira 412 Myocardial Infarction Old 401.1 Hypertension Benign 424.0 Mitral Valve Disorder 305.1 Tobacco Use Disorder 272.4 Hyperlipidemia Other Unspec Office Visit 12/20/2012 10:20a [place] Jaqui Oropeza 424.0 Mitral Valve Darrick WoodOMarilin Disorder 414.01 Coronary Atherosclerosis Elim Ira 412 Myocardial Infarction Old 401.1 Hypertension Benign 305.1 Tobacco Use Disorder 272.4 Hyperlipidemia Other Unspec Office Visit 11/23/2012 Radha Wyman S. 414.01 Coronary 2:45p Jaqui Milligan M.D. Atherosclerosis Elim Ira 412 Myocardial Infarction Old 401.1 Hypertension Benign 786.09 Dyspnea & Respiratory Abnormalities Other 424.0 Mitral Valve Disorder Office Visit 11/18/2012 1:40p [place] Jaqui Oropeza 424.0 Mitral Valve AT [facility] Darrick WoodOMarilin Disorder 414.01 Coronary Atherosclerosis Elim Ira 412 Myocardial Infarction Old 401.1 Hypertension Benign 272.4 Hyperlipidemia Other Unspec 305.1 Tobacco Use Disorder Office Visit 10/06/2012 Radha Oropeza 786.09 Dyspnea & 11:00a Cardiology Carine Wood.O. Respiratory Abnormalities Other 424.0 Mitral Valve Disorder 414.01 Coronary Atherosclerosis Elim Ira 401.1 Hypertension Benign 272.4 Hyperlipidemia Other Unspec 305.1 Tobacco Use Disorder Office Visit 04/05/2012 Radha Hair 414.01 Coronary 2:30p Cardiology Jairo Linn Atherosclerosis Elim Ira 401.1 Hypertension Benign 272.4 Hyperlipidemia Other Unspec 305.1 Tobacco Use Disorder Office Visit 12/03/2011 Radha Oropeza 414.01 Coronary 1:20p Cardiology Ron Wood Atherosclerosis Elim Ira 412 Myocardial Infarction Old 401.1 Hypertension Benign 272.4 Hyperlipidemia Other Unspec 305.1 Tobacco Use Disorder Office Visit 07/23/2011 Radha Oropeza 414.01 Coronary 11:00a Cardiology Darrick WoodO. Atherosclerosis Elim Ira 401.1 Hypertension Benign 272.4 Hyperlipidemia Other Unspec Office Visit 03/17/2011 Radha Oropeza 414.01 Coronary 2:20p Cardiology Darrick WoodOMarilin Atherosclerosis Elim Ira 410.31 Myocardial Infarc Acute Inferopost Wall Initial Episode CR 401.1 Hypertension Benign 272.4 Hyperlipidemia Other Unspec Office Visit 03/06/2011 11:00a DO Not Use [employer] Supervisor Rukhsana Calixto, 410.31 Myocardial Infarc AT [facility] Acute Inferopost Wall Initial Episode CR 401.1 Hypertension Benign V70.0 Examination General Medical Routine AT Health Care Facility Office Visit 02/19/2011 11:00a [place] [facility] Johnna 410.31 Myocardial Wood, D.O. Infarc Acute Inferopost Wall Initial Episode CR 414.01 Coronary Atherosclerosis Elim Ira 401.1 Hypertension Benign 272.4 Hyperlipidemia Other Unspec Office Visit 01/27/2011 1:57p [place] [facility] Johnna 786.50 Pain Chest Wood, D.O. Unspec 410.31 Myocardial Infarc Acute Inferopost Wall Initial Episode CR 414.01 Coronary Atherosclerosis Elim Ira Office Visit 01/26/2011 1:56p [place] [facility] Johnna 786.50 Pain Chest Wood, D.O. Unspec 410.31 Myocardial Infarc Acute Inferopost Wall Initial Episode CR 414.01 Coronary Atherosclerosis Elim Ira Office Visit 01/25/2011 1:55p [place] [facility] Johnna 786.50 Pain Chest Wood, D.O. Unspec 410.31 Myocardial Infarc Acute Inferopost Wall Initial Episode CR 414.01 Coronary Atherosclerosis Elim Ira Plan of Treatment Future Appointment(s):05/18/2019 2:00 pm - Garo Milligan M.D. at [facility]04/04/2019 6:00 am - Remote Device Checks at [facility]01/19/2019 - Alexandra Esteban N.P.I49.5 Sick sinus eanmgmilM10.0 Presence of cardiac cyytjvziwL27.0 Paroxysmal atrial fibrillationRecommendations:You had one episode of afib rates were high You can take an extra dose of metoprolol if this happensagain. If episodes increase in frequency we could consider anti-arrhythmics.I25.10 Atherosclerotic heart disease of [place] coronary artery withComments:Stress test low risk.Follow up: OV 05/2019 QSMRecommendations:LDL 120 Continue Zetia Would recommend injectable cholesterol medication which you decline.R94.31 Abnormal electrocardiogram [ECG] [EKG]R00.2 Palpitations
--- OUTSIDE RECORDS SUMMARY | 2019-01-28 15:15 | XMS REPORT | Continuity of Care Document ---
:1935 External Reference #:[id number] Author Name Madonna De La Vega Care Team Providers Name Role Phone Lorie Cantor MD Primary Care Physician Unavailable Payers Date Identification Numbers Payment Provider Subscriber Expires: 2016 Policy Number: [id number] [facility] Todays Options Nuzhat Manzanares PayID: [id number] [address] [address] Attn: [place] [address] Effective: 2016 Policy Number: [id number] [employer] Medicare Nuzhat Manzanares Group Number: [id number] [address] PayID: [id number] [place] [address] Expires: 2012 Policy Number: [id number] [employer] Shantanu Manzanares Group Number: [id number] [address] [address] PayID: [id number] [place] [address] Expires: 2011 Policy Number: [id number] Medicare Nuzhat Manzanares PayID: [id number] [address] [place] [address] Expires: 2014 Policy Number: [id number] [employer] Shantanu Manzanares Group Number: [id number] [address] [address] PayID: [id number] [place] [address] Expires: 2016 Policy Number: [id number] Today's Option Of [place] Nuzhat Manzanares PayID: [id number] [address] [address] Problems Active Problems Provider Date Coronary arteriosclerosis [...] Provider Date Lisinopril take one tablet 60tabs Garo SMarilin 10/20/2018 10mg Tablets by mouth twice [...] Tablets Dulera daily Unknown - 12/07/2016 Ipratropium [place] as needed Unknown - 12/03/2017 Clopidogrel 1 [...] H/L Range Note Lipid Panel - 12/22/2018 [facility] Creatine 43 U/L N 10-[address] Kinase(CK) [place] [address] [phone] Comp Metabolic 12/22/2018 [facility] Sodium 140 mmol/L N 135- [address] [place] [address] [phone] Potassium 4.3 mmol/L N 3.5-5.0 Chloride 103 [...] Egfr 107.5 >60 1 Lipid Profile 12/22/2018 [facility] Triglycerides 85 mg/dL 2 (Trig/Chol/HDL) [address] [place] [address] [phone] Cholesterol 224 mg/dL 3 HDL Cholesterol 87.5 mg/dL 4 LDL Cholesterol 120 mg/dL 5 Cath Panel 12/11/2017 [facility] Partial 29.5 seconds N 26.0- 36.3 6, [address] [place] [address] PTT [phone] CBC Auto 12/11/2017 [facility] White Blood 5.1 10^3/uL N 3.5- 10.[address] Count [place], [place] [id number] [phone] Red Blood Count 4.43 10^6/uL N 4.0-5.4 [...] Red Blood Cells % 0 Inr/Protime 12/11/2017 [facility] Inr 0.86 N 0.77-1.[address] [place] [address] [phone] Basic Metabolic 12/11/2017 [facility] Sodium 140 mmol/L N 139- 145 Panel [address] [place] [address] [phone] Potassium 4.3 mmol/L N 3.5-5.0 Chloride 105 mmol/L N 101-111 Co2 Carbon Dioxide 27 mmol/L N 22-32 Anion Gap 8 mmol/L N 2-11 Glucose 101 mg/dL High 70-100 Blood Urea Nitrogen 14 mg/dL N 6-24 Creatinine 0.63 mg/dL N 0.51-0.95 BUN/Creatinine Ratio 22.2 High 8-20 Calcium 9.4 mg/dL N 8.6-10.3 Egfr Non- 90.7 >60 Egfr 116.6 >60 8 Comp Metabolic Panel 09/01/2017 [facility] Sodium 140 mmol/L N 133-145 [address] [place] [address] [phone] Potassium 3.9 mmol/L N 3.5-5.0 Chloride 103 [...] >60 9 Lipid Panel - JFM 09/01/2017 [facility] Creatine 63 U/L N 10- 223 101 [facility] Kinase(CK) [place] [address] [phone] Laboratory test 09/01/2017 [facility] Alt 14 U/L N 7-52 finding [address] [place] [address] [phone] Ast 16 U/L N 13-39 Lipid Profile 09/01/2017 [facility] Triglycerides 80 mg/dL 10 (Trig/Chol/HDL) [address] [place] [address] [phone] Cholesterol 245 mg/dL 11 HDL Cholesterol 91.2 mg/dL 12 LDL Cholesterol 138 mg/dL 13 CBC Auto Diff 12/28/2015 [facility] White Blood 5.7 10^3/uL N 3.5-10.[address] [place] [address] [phone] Red Blood Count 4.31 10^6/uL N 4.0-5.4 [...] % 0.1 N Comp Metabolic Panel 12/28/2015 [facility] Sodium 138 mmol/L N 133-[address] [place] [address] [phone] Potassium 4.2 mmol/L N 3.5-5.0 Chloride 101 [...] 109.2 N >60 14 Lipid Profile 12/28/2015 [facility] Triglycerides 104 mg/dL N 15 (Trig/Chol/HDL) [address] [place] [address] [phone] Cholesterol 239 mg/dL N 16 HDL Cholesterol 87.0 mg/dL N 17 LDL Cholesterol 131 mg/dL N 18 Laboratory test 06/26/2014 [facility] Free T4 0.91 ng/mL N 0.61-1.12 19, 20 finding [address] [place] [address] [phone] Total T3 1.26 ng/mL N 0.87-1.78 21 Free T3 3.40 pg/mL N 2.5-3.9 22 TSH (Thyroid Stimulating Horm) 1.43 IU/mL N 0.34-5.60 23 Cortisol 17.35 g/dL N 24 Carcinoembryonic Antigen 2.6 ng/mL N 0.1-5.0 25 Erythrocyte Sed Rate 15 mm/Hr N 0-40 26 Vitamin D, 25 06/26/2014 [facility] 25-Hydroxy Vitamin <4.0 ng/ mL N Hydroxy [address] [place] [address] [phone] 25-Hydroxy Vitamin D3 23 ng/mL N 25-Hydroxy Vitamin D Total 23 ng/mL N 27 Celiac Panel 06/26/2014 [facility] Immunoglobulin A 162 mg/dL N 61 - [address] [place] [address] [phone] Tissue Transglutaminase IgA Ab <1.2 U/mL N 28 Celiac Interpretation See Comment N 29 Comp Metabolic Panel 06/26/2014 [facility] Sodium 140 mmol/L N 133-145 [address] [place] [address] [phone] Potassium 3.5 mmol/L N 3.5-5.0 30 Chloride [...] 115.7 N >60 31 Lipid Profile 06/26/2014 [facility] Triglycerides 137 mg/dL N 32 (Trig/Chol/HDL) [address] [place] [address] [phone] Cholesterol 225 mg/dL N 33 HDL Cholesterol 68.8 mg/dL N 34 LDL Cholesterol 129 mg/dL N 35 Lipid Profile 03/30/2013 [facility] Triglycerides 114 mg/dL 40-200 (Trig/Chol/HDL) [address] [place] [address] [phone] Cholesterol 249 mg/dL High Less than 200 HDL Cholesterol 82 mg/dL High 40-60 36 Cholesterol/HDL Ratio 3.0 Average 1-4.44 LDL Cholesterol 144.2 High Less Than 100 37 Laboratory test finding 03/30/2013 [facility] Ast 18 U/L 12- 42 [address] [place] [address] [phone] Alt 17 U/L 14-54 CBC Auto Diff 03/30/2013 [facility] White Blood 5.1 10^3/uL 4.8-10.8 101 [facility] [place] [address] [phone] Red Blood Count 4.43 10^6/uL 4.0-5.4 Hemoglobin [...] Cells % 0.1 Comp Metabolic Panel 03/30/2013 [facility] Sodium 139 mmol/L 133-[address] [place] [address] [phone] Potassium 4.0 mmol/L 3.5-5.0 Chloride 103 mmol/L [...] Egfr 104.6 >60 38 Liver Function 02/18/2012 [facility] Total Protein 6.5 GM/DL 6.2-8.1 Panel [address] [place] [address] [phone] Albumin 4.0 GM/DL 3.2-5.2 Globulin 2.5 GM/DL 2-4 Albumin/Globulin Ratio 1.6 1-3 Bilirubin Total 0.5 mg/dL 0.4-1.5 39 Bilirubin Direct 0.1 mg/dL 0.1-0.5 Indirect Bilirubin 0.4 mg/dL 0.3-1.0 40 Alkaline Phosphatase 104 U/L 30-110 Alt (SGPT) 17 U/L 14-54 Ast (Sgot) 19 U/L 12-42 Lipid Profile 02/18/2012 [facility] Triglyceride 100 mg/dL 40 -200 (Trig/Chol/HDL) [address] [place] [address] [phone] Cholesterol 249 mg/dL High Less Than 200 41 High Density Lipoprotein 75 mg/dL High 40-60 42 Cholesterol/HDL Ratio 3.32 AVERAGE 1-4.44 Low Density Lipoprotein 154 mg/dL High Less Than 100 43 Lipid Profile 11/11/2011 [facility] Triglyceride 126 mg/dL 40 -200 (Trig/Chol/HDL) [address] [place] [address] [phone] Cholesterol 280 mg/dL High Less Than 200 [...] The testing method is an immunoenzymatic assay lumber handler by [email or web address] performed on [employer] DXI 600. Do not interpret serum CEA [...] levels within this range. Test Performed by: [place] [address] Cyber Reverse Engineer: John Velasquez M.D. 28 REFERENCE VALUE <4.0 (Negative) Test Performed by: [place] [address] Cyber Reverse Engineer: John Velasquez M.D. 29 Negative serology. Celiac disease unlikely. However, approximately 10% of patients with celiac disease are seronegative. Also, patients who are already adhering to a gluten-free diet may be seronegative. If celiac disease is highly clinically suspected, consider HLA-DQ typing. Test Performed by: [place] [address] Cyber Reverse Engineer: John Velasquez M.D. 30 Potassium reference range [...] has been shown to interfere with the Jendrassik-Faywood method for measuring total bilirubin. Samples from [...] MG/DL Procedures Date Code Description Status 01/04/2019 74810 Icd Eval Sing,Dual,Multi Lead Remote Recpt Transm Tech Completed Rev Tech S 01/04/2019 76881 Pacemaker Check Remote Up To 90Days Completed Single,Dual,Multiple Lead 12/08/2018 75429 Treadmill Interp/Report Only Completed 12/08/2018 68158 Stress Test Supervsn W/Out I/R Completed 11/08/2018 15260 EKG Tracing & Interpretation Completed 10/04/2018 21163 Icd Eval Sing,Dual,Multi Lead Remote Recpt Transm Tech Completed Rev Tech S 10/04/2018 49607 Icd Eval Sing,Dual,Multi Lead Remote Recpt Transm Tech Completed Rev Tech S 10/04/2018 86633 Pacemaker Check Remote Up To 90Days Completed Single,Dual,Multiple Lead 10/04/2018 29713 Pacemaker Check Remote Up To 90Days Completed Single,Dual,Multiple Lead 07/05/2018 72127 Pacemaker Check Remote Up To 90Days Completed Single,Dual,Multiple Lead 07/05/2018 68714 Pacemaker Check Remote Up To 90Days Completed Single,Dual,Multiple Lead 07/05/2018 19046 Icd Eval Sing,Dual,Multi Lead Remote Recpt Transm Tech Completed Rev Tech S 07/05/2018 95930 Icd Eval Sing,Dual,Multi Lead Remote Recpt Transm Tech Completed Rev Tech S 03/29/2018 19918 Icd Eval Sing,Dual,Multi Lead Remote Recpt Transm Tech Completed Rev Tech S 03/29/2018 34481 Pacemaker Check Remote Up To 90Days Completed Single,Dual,Multiple Lead 02/03/2018 22366 Treadmill Interp/Report Only Completed 02/03/2018 96266 Stress Test Supervsn W/Out I/R Completed 01/27/2018 18747 ECHO Transthoracic, Real-Time 2D With Doppler And Color Completed Flow 01/27/2018 69151 ECHO Transthoracic, Real-Time 2D With Doppler And Color Completed Flow 01/05/2018 04099 Pace Maker Eval W/Iterative Adjment Dual Lead Completed 01/05/2018 90493 Pace Maker Eval W/Iterative Adjment Dual Lead Completed 12/16/2017 56851 Pace Maker Eval W/Iterative Adjment Dual Lead Completed 12/16/2017 03930 Pace Maker Eval W/Iterative Adjment Dual Lead Completed 12/15/2017 76062 Pace Maker Eval W/Iterative Adjment Dual Lead Completed 12/15/2017 23680 EKG, Interpretation Only Completed 12/14/2017 10359 Perm Pacemaker Av Sequential Atrial And Ventricular Completed 12/14/2017 89655 EKG, Interpretation Only Completed 12/14/2017 80496 Moderate Sedation Services; Same Phys Intl 15 Mins; PT Completed >=5 Years 12/09/2017 80246 Holter Monitor Review (24 hr)dr review & interp only Completed 12/04/2017 24915 EKG Tracing & Interpretation Completed 10/11/2017 74806 EKG, Interpretation Only Completed 09/25/2017 21479 ECHO Transthoracic, Real-Time 2D With Doppler And Color Completed Flow 09/25/2017 61914 ECHO Transthoracic, Real-Time 2D With Doppler And Color Completed Flow 08/19/2017 45106 EKG Tracing & Interpretation Completed 12/09/2016 75875 EKG Tracing & Interpretation Completed 09/02/2016 72572 Left Heart Cath. Incl S/I Coronaries, Angio S/I V Gram Completed If Done 08/27/2016 50711 Holter Monitor Review (24 hr)dr review & interp only Completed 08/26/2016 48672 ECG Monitor/Recording W/Visual Superimposition Scanning Completed 08/21/2016 21051 Stress Test Completed 08/21/2016 74631 Myocardial Perfusion Imaging Tomographic (Spect) Completed Multiple Studies 08/08/2016 07218 EKG Tracing & Interpretation Completed 08/07/2016 89596 ECHO Transthoracic, Real-Time 2D With Doppler And Color Completed Flow 08/03/2016 13330 EKG, Interpretation Only Completed 08/02/2016 16213 EKG, Interpretation Only Completed 08/01/2016 09961 EKG, Interpretation Only Completed 05/22/2016 56345 ECHO Transthoracic, Real-Time 2D With Doppler And Color Completed Flow 05/14/2016 32019 EKG Tracing & Interpretation Completed 03/17/2015 68860 Holter Monitor Review (24 hr)dr review & interp only Completed 03/13/2015 53055 EKG Tracing & Interpretation Completed 01/11/2015 96434 Color Flow Doppler/Interp & Reprt Completed 01/11/2015 43657 Pulse Wave/Continuous-Interp.RPT Completed 01/11/2015 11500 Echocardiography, Transesophageal, Real Time W/Image 2D Completed W/W/O M-M 12/07/2014 68941 EKG Tracing & Interpretation Completed 10/11/2014 90019 ECHO Transthoracic, Real-Time 2D With Doppler And Color Completed Flow 04/21/2014 89920 EKG Tracing & Interpretation Completed 02/21/2014 00310 Holter Monitor Review (24 hr)dr review & interp only Completed 02/01/2014 03561 Color Flow Doppler/Interp & Reprt Completed 02/01/2014 61304 Pulse Wave/Continuous-Interp.RPT Completed 02/01/2014 69760 Echocardiography, Transesophageal, Real Time W/Image 2D Completed W/W/O M-M 01/23/2014 43316 ECHO Transthoracic, Real-Time 2D With Doppler And Color Completed Flow 01/05/2014 99297 EKG Tracing & Interpretation Completed 07/19/2013 92178 Treadmill Interp/Report Only Completed 07/19/2013 32005 Stress Test Supervsn W/Out I/R Completed 11/23/2012 08312 ECHO Stress Test Incl Perf Contiuous ekg Monitoring Completed W/Phys Superv 11/23/2012 71858 ECHO Stress Test Incl Perf Contiuous ekg Monitoring Completed W/Phys Superv 10/21/2012 61383 ECHO Transthoracic, Real-Time 2D With Doppler And Color Completed Flow 03/26/2011 87560445 Mammogram Completed 02/19/2011 79506 EKG Tracing & Interpretation Completed 01/27/2011 95309 EKG, Interpretation Only Completed 01/26/2011 71077 EKG, Interpretation Only Completed 01/25/2011 34062 Left Heart Cath. Incl S/I Coronaries, Angio S/I V Gram Completed If Done 01/25/2011 10994 EKG, Interpretation Only Completed 01/25/2011 23348 Ptca W/Intracor Stent Completed 01/25/2011 96557 IV Rx Trancath Therapy(Nitro/Dina) Completed Encounters Type Date Location Provider Dx Diagnosis Office Visit 01/19/2019 [facility] Alexandra Esteban, I49.5 Sick sinus 10:30a N.P. syndrome Z95.0 Presence of cardiac pacemaker I48.0 Paroxysmal atrial fibrillation I25.10 [facility] disease of [place] coronary artery w/o [facility] R94.31 Abnormal electrocardiogram [ECG] [EKG] R00.2 Palpitations Office Visit 11/08/2018 11:00a [facility] Alexandra Esteban, I49.5 Sick sinus N.P. syndrome Z95.0 Presence of cardiac pacemaker I34.9 Nonrheumatic mitral valve disorder, unspecified R00.2 Palpitations I34.0 Nonrheumatic mitral (valve) insufficiency I48.0 Paroxysmal atrial fibrillation I25.110 [facility] heart disease of [place] cor art w unstable [facility] pctrs Office Visit 05/11/2018 [facility] Garo S. I34.9 Nonrheumatic 11:00a Cardiology Fariha Milligan mitral valve disorder, unspecified I49.5 Sick sinus syndrome R00.2 Palpitations I34.0 Nonrheumatic mitral (valve) insufficiency I36.1 Nonrheumatic tricuspid (valve) insufficiency I27.20 Pulmonary hypertension, unspecified Z95.0 Presence of cardiac pacemaker I10 Essential (primary) hypertension I48.0 Paroxysmal atrial fibrillation Office Visit 02/11/2018 3:30p [facility] Alexandra SMarilin I25.118 [facility] heart Foster, N.P. disease of [place] cor art w [facility] I34.9 Nonrheumatic mitral valve disorder, unspecified I48.0 Paroxysmal atrial fibrillation Z95.0 Presence of cardiac pacemaker I34.0 Nonrheumatic mitral (valve) insufficiency Office Visit 12/24/2017 2:00p [facility] Alexandra S. I48.0 Paroxysmal atrial Foster, N.P. fibrillation Z95.0 Presence of cardiac pacemaker I49.5 Sick sinus syndrome R00.2 Palpitations E78.4 Other hyperlipidemia I25.118 [place] heart disease of [place] cor art w oth 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 E78.4 Other hyperlipidemia I25.118 [place] heart disease of [place] cor art w [facility] pctrs I49.1 Atrial premature depolarization Office Visit 10/14/2017 [facility] J18.9 Pneumonia, 3:18p Assoc,pc Van, GEMOLOGIST unspecified Hospitalists organism J09.x1 Influenza due to ident novel influenza A virus w pneumonia J44.1 Chronic obstructive pulmonary disease w (acute) exacerbation E87.6 Hypokalemia Office Visit 10/13/2017 [facility] J18.9 Pneumonia, 3:17p Assoc,pc Van, GEMOLOGIST unspecified Hospitalists organism J09.x1 Influenza due to ident novel influenza A virus w pneumonia J44.1 Chronic obstructive pulmonary disease w (acute) exacerbation E87.6 Hypokalemia Office Visit 10/12/2017 [facility] J18.9 Pneumonia, 3:16p Assoc,pc Van, GEMOLOGIST unspecified Hospitalists organism J09.x1 Influenza due to ident novel influenza A virus w pneumonia J44.1 Chronic obstructive pulmonary disease w (acute) exacerbation E87.6 Hypokalemia Office Visit 10/11/2017 3:13p [facility] Haylie J09.x1 Influenza due Assoc,susanne El NP to ident novel Hospitalists influenza A virus w pneumonia J44.1 Chronic obstructive pulmonary disease w (acute) exacerbation E87.6 Hypokalemia Office Visit 10/10/2017 3:09p [facility] Omar Hollingsworth J09.x1 Influenza due Assoc,susanne Blum M.D.,FACP to ident novel Hospitalists influenza A virus w pneumonia E87.6 Hypokalemia J44.1 Chronic obstructive pulmonary disease w (acute) exacerbation Office Visit 08/19/2017 2:00p [facility] Cathytaybsheryl S. I25.118 Raciel Milligan M.D. disease of [place] cor art w [facility] I49.1 Atrial premature depolarization E78.4 Other hyperlipidemia R06.02 Shortness of breath Office Visit 12/09/2016 11:00a [facility] Qutaybsheryl S. I25.118 Raciel Milligan M.D. disease of [place] cor art w oth ang pctrs R94.39 Abnormal result of other cardiovascular function study I48.0 Paroxysmal atrial fibrillation I49.1 Atrial premature depolarization F17.210 Nicotine dependence, cigarettes, uncomplicated Office Visit 09/09/2016 2:00p [place] [facility] Torey Hollingsworth I25.118 [place] heart Of [employer] [facility] Fariha Barkley disease of [place] cor art w oth ang pctrs R94.39 Abnormal result of other cardiovascular function study Office Visit 08/27/2016 9:00a [facility] ONUR Boss I25.118 [place] heart disease of [place] cor art w oth ang pctrs R94.39 Abnormal result of other cardiovascular function study R07.9 Chest pain, unspecified Office Visit 08/08/2016 2:30p [place] [facility] ONUR Boss I25.118 [facility] heart [facility] disease of [place] cor art w oth ang pctrs I48.91 Unspecified atrial fibrillation J18.9 Pneumonia, unspecified organism R07.9 Chest pain, unspecified Office Visit 08/03/2016 [facility] Omar Hollingsworth J18.9 Pneumonia, 1:42p Assoc,susanne Blum M.D.,[facility] unspecified Hospitalists organism I25.10 Athscl heart disease of [place] coronary artery w/o ang pctrs I48.91 Unspecified atrial fibrillation Office Visit 08/03/2016 4:16p [place] [facility] Tom De La Cruz I21.3 St elevation [facility] Arcos, DO (Stemi) FACC myocardial infarction of [facility] Office Visit 08/02/2016 1:42p [facility] Jonathan J18.9 Pneumonia, Assoc,susanne Caceres M.D. unspecified Hospitalists organism I25.10 [place] heart disease of [place] coronary artery w/o ang pctrs R79.89 Other specified abnormal findings of blood chemistry A41.9 Sepsis, unspecified organism Office Visit 08/02/2016 4:14p [place] [facility] Tom SMarilin I21.3 [facility] Arcos, DO (Stemi) FACC myocardial infarction of [facility] Office Visit 08/01/2016 1:41p [facility] Ashu J18.9 Pneumonia, Assoc,pc Magdaleno, unspecified Hospitalists N.P. organism I25.10 [place]cl heart disease of [place] coronary artery w/o ang pctrs R79.89 Other specified abnormal findings of blood chemistry A41.9 Sepsis, unspecified organism Office Visit 05/14/2016 [facility] Qutaybeh S. I34.0 Nonrheumatic mitral 4:00p Jaqui Milligan M.D. (valve) insufficiency I25.2 Old myocardial infarction I25.10 [place] heart disease of [place] coronary artery w/o ang pctrs I10 Essential (primary) hypertension R94.31 Abnormal electrocardiogram [ECG] [EKG] Office Visit 10/23/2015 2:00p [facility] Qutaybeh S. R42 Dizziness and Fariha Milligan giddiness I34.0 Nonrheumatic mitral (valve) insufficiency I25.2 Old myocardial infarction I25.10 Athscl heart disease of [place] coronary artery w/o ang pctrs I10 Essential (primary) hypertension E78.4 Other hyperlipidemia Office Visit 03/13/2015 4:40p [facility] Qutaybeh S. 424.0 Mitral Valve Fariha Milligan Disorder 412 Myocardial Infarction Old 780.4 Dizziness & Giddiness 414.01 Coronary Atherosclerosis [place] 401.1 Hypertension Benign Office Visit 01/11/2015 11:09a [facility] Qutaybeh S. 412 Myocardial Fariha Milligan Infarction Old 414.9 Ischemic Heart Disease Chronic Unspec 272.4 Hyperlipidemia Other Unspec 424.0 Mitral Valve Disorder Office Visit 12/07/2014 [facility] Denisaybsheryl S. 401.1 Hypertension 3:00p Jaqui Milligan M.D. Benign 414.9 Ischemic Heart Disease Chronic Unspec 272.4 Hyperlipidemia Other Unspec 397.0 Tricuspid Valve Disease 424.0 Mitral Valve Disorder 414.01 Coronary Atherosclerosis [place] 412 Myocardial Infarction Old Office Visit 10/25/2014 2:30p [facility] Eva Merida, 401.1 Hypertension Benign PA 427.69 Premature Beats Other 414.9 Ischemic Heart Disease Chronic Unspec 272.4 Hyperlipidemia Other Unspec 397.0 Tricuspid Valve Disease 416.8 Pulmonary Heart Disease Other Chronic Office Visit 05/25/2014 11:00a [facility] Eva Merida PA 424.0 Mitral Valve Disorder 401.1 Hypertension Benign 414.01 Coronary Atherosclerosis [place] 427.69 Premature Beats Other Office Visit 04/21/2014 3:20p [facility] Garo S. 424.0 Mitral Valve Fariha Milligan Disorder 414.9 Ischemic Heart Disease Chronic Unspec 401.1 Hypertension Benign 414.01 Coronary Atherosclerosis [place] 412 Myocardial Infarction Old 272.4 Hyperlipidemia Other Unspec 427.69 Premature Beats Other Office Visit 02/01/2014 8:00a [facility] Garo S. 424.0 Mitral Valve Fariha Milligan Disorder 414.9 Ischemic Heart Disease Chronic Unspec Office Visit 01/05/2014 [facility] Garo S. 414.01 Coronary 3:40p Cardiology Fariha Milligan Atherosclerosis [place] 786.09 Dyspnea & Respiratory Abnormalities Other 401.1 Hypertension Benign 424.0 Mitral Valve Disorder 272.4 Hyperlipidemia Other Unspec 412 Myocardial Infarction Old 305.1 Tobacco Use Disorder Office Visit 07/04/2013 Radha Oropeza 414.01 Coronary 10:00a Cardiology Ron Wood Atherosclerosis [place] 786.09 Dyspnea & Respiratory Abnormalities Other 401.1 Hypertension Benign 424.0 Mitral Valve Disorder 272.4 Hyperlipidemia Other Unspec Office Visit 03/23/2013 Radha Oropeza 414.01 Coronary 11:00a Cardiology Darrick WoodOMarilin Atherosclerosis [place] 412 Myocardial Infarction Old 401.1 Hypertension Benign 424.0 Mitral Valve Disorder 305.1 Tobacco Use Disorder 272.4 Hyperlipidemia Other Unspec Office Visit 12/20/2012 10:20a [facility] Jaqui Oropeza 424.0 Mitral Valve Darrick WoodOMarilin Disorder 414.01 Coronary Atherosclerosis [place] 412 Myocardial Infarction Old 401.1 Hypertension Benign 305.1 Tobacco Use Disorder 272.4 Hyperlipidemia Other Unspec Office Visit 11/23/2012 Radha Wyman S. 414.01 Coronary 2:45p Jaqui Milligan M.D. Atherosclerosis [place] 412 Myocardial Infarction Old 401.1 Hypertension Benign 786.09 Dyspnea & Respiratory Abnormalities Other 424.0 Mitral Valve Disorder Office Visit 11/18/2012 1:40p [facility] Jaqui Oropeza 424.0 Mitral Valve AT [facility] Darrick WoodOMarilin Disorder 414.01 Coronary Atherosclerosis [place] 412 Myocardial Infarction Old 401.1 Hypertension Benign 272.4 Hyperlipidemia Other Unspec 305.1 Tobacco Use Disorder Office Visit 10/06/2012 Radha Oropeza 786.09 Dyspnea & 11:00a Cardiology Carine Wood.O. Respiratory Abnormalities Other 424.0 Mitral Valve Disorder 414.01 Coronary Atherosclerosis [place] 401.1 Hypertension Benign 272.4 Hyperlipidemia Other Unspec 305.1 Tobacco Use Disorder Office Visit 04/05/2012 Radha Hair 414.01 Coronary 2:30p Cardiology Jairo Linn Atherosclerosis [place] 401.1 Hypertension Benign 272.4 Hyperlipidemia Other Unspec 305.1 Tobacco Use Disorder Office Visit 12/03/2011 Radha Oropeza 414.01 Coronary 1:20p Cardiology Ron Wood Atherosclerosis [place] 412 Myocardial Infarction Old 401.1 Hypertension Benign 272.4 Hyperlipidemia Other Unspec 305.1 Tobacco Use Disorder Office Visit 07/23/2011 Radha Oropeza 414.01 Coronary 11:00a Cardiology Darrick WoodO. Atherosclerosis [place] 401.1 Hypertension Benign 272.4 Hyperlipidemia Other Unspec Office Visit 03/17/2011 Radha Oropeza 414.01 Coronary 2:20p Cardiology Darrick WoodOMarilin Atherosclerosis [place] 410.31 Myocardial Infarc Acute Inferopost Wall Initial Episode CR 401.1 Hypertension Benign 272.4 Hyperlipidemia Other Unspec Office Visit 03/06/2011 11:00a DO Not Use [employer] Rukhsana Calixto, 410.31 Myocardial Infarc AT [facility] Acute Inferopost Wall Initial Episode CR 401.1 Hypertension Benign V70.0 Examination General Medical Routine AT Health Care Facility Office Visit 02/19/2011 11:00a [facility] Johnna 410.31 Myocardial Wood, D.O. Infarc Acute Inferopost Wall Initial Episode CR 414.01 Coronary Atherosclerosis [place] 401.1 Hypertension Benign 272.4 Hyperlipidemia Other Unspec Office Visit 01/27/2011 1:57p [facility] Johnna 786.50 Pain Chest Wood, D.O. Unspec 410.31 Myocardial Infarc Acute Inferopost Wall Initial Episode CR 414.01 Coronary Atherosclerosis [place] Office Visit 01/26/2011 1:56p [facility] Johnna 786.50 Pain Chest Wood, D.O. Unspec 410.31 Myocardial Infarc Acute Inferopost Wall Initial Episode CR 414.01 Coronary Atherosclerosis [place] Office Visit 01/25/2011 1:55p [facility] Johnna 786.50 Pain Chest Wood, D.O. Unspec 410.31 Myocardial Infarc Acute Inferopost Wall Initial Episode CR 414.01 Coronary Atherosclerosis [place] Plan of Treatment Future Appointment(s):05/18/2019 2:00 pm - Garo Milligan M.D. at [facility]04/04/2019 6:00 am - Remote Device Checks at [facility]01/19/2019 - Alexandra Esteban N.P.I49.5 Sick sinus jbqzlegdH02.0 Presence of cardiac qpqlklmdlV31.0 Paroxysmal atrial fibrillationRecommendations:You had one episode of afib rates were high You can take an extra dose of metoprolol if this happensagain. If episodes increase in frequency we could consider anti-arrhythmics.I25.10 Atherosclerotic heart disease of [place] coronary artery withComments:Stress test low risk.Follow up: OV 05/2019 QSMRecommendations:LDL 120 Continue Zetia Would recommend injectable cholesterol medication which you decline.R94.31 Abnormal electrocardiogram [ECG] [EKG]R00.2 Palpitations
[2019-01-28] MEDS ORDERED: NS 0.9% 1000 ML** 1,000 ML IV ONE (16:25)
--- NOTE | 2019-01-28 16:36 | ED ---
Abdominal Pain/Female - HPI Summary HPI Summary: An 83 y/o female, accompanied by her sister Shannan, presents to [facility] with a chief complaint abdominal pain since 01/21/19. Her pain then worsened on 01/24/19. She then saw Dr. Penaloza, and had a CT abdomen/pelvis done on 01/24/19 which was reportedly negative. The patient reports increased urinary frequency, a constant RUQ ache, a stabbing worsened pain when laying down, but denies vomiting. She claims that she has been under stress since her 's 3.5 months ago. Her pain has been in her RUQ and has been fluctuating since . When her pain is her worst it is a 10/10 in severity, and when it is better it is at about a 4/10 in severity. Her pain is worsened when bending over and standing up. The patient also c/o diarrhea on 01/24/19, after her CT was done, and says that this escalated her pain. She said that she saw Dr. Hendrix 5 years ago and she had a 75 percent blockage in an artery. She has a Hx of Atrial fibrillation, gallstones, pneumonia, blood clots in lungs, and MS. She has a SHx of two stents, appendectomy and partial hysterectomy. She also notes that she has a Hx of gallbladder problems. She ate ham around 16:30 . She claims that her pain today is 10 times worse than 01/24/19. FHx of colon cancer. The patient admits to two drinks of EtOH daily, and smokes, but denies any other substance use. Her actual weight is 123.5. Vital signs while in room: HR 65 bpm, BP 156/85, O2 sat 98% - History of Current Complaint Chief Complaint: EDAbdPain Stated Complaint: ABD PAIN PER PT Time Seen by Provider: 01/28/19 15:37 Hx Obtained From: Patient, Family/Single Stroke Preformer - sister Shannan Onset/Duration: Sudden Onset, Lasting Days, Still Present Timing: Constant Severity Initially: Moderate Severity Currently: Severe Pain Intensity: 4 - but 10/10 at its worst Pain Scale Used: 0-10 Numeric Location: Discrete At: RUQ Radiates: No Character: Sharp - when lying down, Other: - aching Aggravating Factor(s): Other: - lying down, bending over or standing up Alleviating Factor(s): Nothing Associated Signs and Symptoms: Positive: Urinary Symptoms - increased urinary frequency, Decreased Appetite, Diarrhea - After CT scan with oral and IV contrast. Negative: Fever, Chest Pain, Dizzy, Constipation, Blood in Stool, Nausea, Vomiting Allergies/Adverse Reactions: Allergies Allergy/AdvReac Type Severity Reaction Status Date / Time atorvastatin Allergy Hives Verified 12/08/18 10:46 carbamazepine Allergy Hives Verified 12/08/18 10:46 cyanocobalamin (vitamin B12) Allergy Hives Verified 12/08/18 10:46 Zzzhpgl-Jjp-Fls Reductase Allergy Hives Verified 12/08/18 10:46 Inhibitor Home Medications: Home Medications Aspirin EC TAB* [Ecotrin EC Low Dose 81 MG*] 81 mg PO DAILY 01/28/19 [History Confirmed 01/28/19] Lisinopril TAB* [Prinivil TAB*] 10 mg PO BID 01/28/19 [History Confirmed ] Metoprolol Succinate XL TAB* [Toprol XL TAB*] 50 mg PO BID 01/28/19 [History Confirmed 01/28/19] Omeprazole CAP (NF) [Prilosec CAP* 20 MG] 20 mg PO DAILY 01/28/19 [History Confirmed 01/28/19] Phenytoin Sodium Extended 100 mg PO BID 01/28/19 [History Confirmed 01/28/19] oxyCODONE TAB* [Roxycodone TAB 5 mg*] 5 mg PO Q8H PRN 01/28/19 [History Confirmed 01/28/19] PMH/Surg Hx/FS Hx/Imm Hx Previously Healthy: No Endocrine/Hematology History: Reports: Hx Anticoagulant Therapy Denies: Hx Diabetes Cardiovascular History: Reports: Hx Angina, Hx Atrial Fibrillation, Hx Coronary Artery Disease, Hx Hypercholesterolemia, Hx Hypertension, Hx Myocardial Infarction, Hx Pacemaker/ICD, Other Cardiovascular Problems/Disorders - 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 1979 HYSTERECTOMY, [facility]. 1981 BILATERAL SALPINGO-OOPHORECTOMY, [facility]. 2010 CARDIAC CATHERIZATION WITH 2 STENT PLACEMENT, [facility] Hx Anesthesia Reactions: No - Immunization History Date of Influenza Vaccine: did not receive Infectious Disease History: No Infectious Disease History: Denies: Traveled Outside the [place] in Last 30 Days - Family History Known Family History: Positive: Cardiac Disease, Hypertension - Social History Lives: Alone Alcohol Use: Daily Alcohol Amount: 2 drinks Substance Use Type: Reports: None Hx Tobacco Use: Yes Smoking Status (MU): Light Every Day Tobacco Smoker Type: Cigarettes Amount Used/How Often: LESS THAN 1/2 PPD Length of Time of Smoking/Using Tobacco: 66 Have You Smoked in the Last Year: Yes Review of Systems Negative: Fever Negative: Blurred Vision, Diplopia Negative: Epistaxis Negative: Palpitations, Chest Pain Negative: Shortness Of Breath, Cough Positive: Abdominal Pain - RUQ, Diarrhea - on 01/24/[address] with oral and IV contrast . Negative: Vomiting Positive: frequency - increased Musculoskeletal: Negative Skin: Negative Neurological: Negative Positive: Anxious All Other Systems Reviewed And Are Negative: Yes Physical Exam - Summary Physical Exam Summary: Appearance: Ill-appearing, severe pain distress, thin, Her actual weight is 123.5. 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 Bilateral petechiae on lower tibia. Head: Normal Head/Face inspection, atraumatic Eyes: Conjunctiva clear, PERRL, EOMI, no nystagmus ENT: Normal inspection Neck: Supple, no nodes, no JVD Respiratory: Lungs clear, normal breath sounds, no respiratory distress Cardio: RRR, No murmur, pulses normal, brisk capillary refill Abdomen: Soft, tender RUQ and epigastrium, voluntary guarding, no masses, no bruits, nondistended, no rebound Bowel sounds: Present Musculoskeletal: Strength Intact/ROM intact, no calf tenderness, no edema. Psychological: Anxious Neuro: Alert, muscle tone normal, no focal deficit Triage Information Reviewed: Yes Vital Signs On Initial Exam: Initial Vitals Temp Pulse Resp BP Pulse Ox 98.5 F 70 18 182/89 96 01/28/19 14:55 01/28/19 14:55 01/28/19 14:55 01/28/19 14:55 01/28/19 14:55 Vital Signs Reviewed: Yes Diagnostics - Vital Signs Vital Signs Temp Pulse Resp BP Pulse Ox 01/28/19 14:55 98.5 F 70 18 182/89 96 - Laboratory Result Diagrams: 01/28/19 16:41 01/28/19 16:41 Lab Statement: Any lab studies that have been ordered have been reviewed, and results considered in the medical decision making process. - Radiology CXR Radiology Interpretation Completed By: Radiologist Summary of Radiographic Findings: No radiographic evidence for acute cardiopulmonary abnormality on this. portable chest x-ray. ED physician has reviewed this imaging report. - CT aorta w/runoff CTA CT Interpretation Completed By: Radiologist Summary of CT Findings: 1. There is punctate nonobstructing right nephrolithiasis. 2. Stable colonic diverticulosis without evidence for acute diverticulitis. 3. There is focal occlusion in the proximal aspect of the celiac axis but. reconstitution distally. Cannot exclude focal arterial thrombus. ED physician has reviewed this imaging report. - Ultrasound No standard instances Ultrasound Interpretation Completed By: Radiologist Summary of Ultrasound Findings: Gallbladder ultrasound impression: Normal ultrasound of the right upper quadrant. ED physician has reviewed this imaging report. - EKG 16:56 Cardiac Rate: NL - 75 bpm EKG Rhythm: Sinus Rhythm ST Segment: Non-Specific Ectopy: None EKG Comparison: Other - Compared with 12/15/17 patient is no longer paced. Summary of EKG Findings: An EKG at 16:56 reveals nml AV/IV CT, nml QTc, and nml axis. No acute changes. LAD -53. Poor R-wave progression v1 v2 flat St in I and aVL and v3-v6. Compared with 12/15/17 patient is no longer paced. ED MD has reviewed and interpreted this EKG. Re-Evaluation - Re-Evaluation First Eval Re-Evaluation Time: 18:16 Change: Improved Comment: HR 65 bpm, O2 Sat 96%, BP 180/100. Says her pain went down from a 4/ 10 to a 2/10 in severity. Second Eval Re-Evaluation Time: 22:02 Change: Improved Comment: HR 62 bpm, O2 Sat 96%, BP 149/78. Pt agreed to one more dose of Morphine. Her sister will drive her home. Abdominal Pain Fem Course/Dx - Course Course Of Treatment: An 83 y/o female, accompanied by her sister Shannan, presents to [facility] with a chief complaint abdominal pain since 01/21/19. Her pain worsened on 01/24/19 and she had an abdomen/pelvis CT with contrast done which was negative (reviewed from previous visit: contracted GB). The physical exam revealed that the patient was anxious and has a 17cm x 5cm excoriated scar on right anterior tibia. Bilateral petechiae on lower tibia. Abdominal exam showed pt in extreme pain, worse with lying flat, soft with voluntary guarding, extremely tender RUQ and epigastrium, nondistended, no masses, no bruits. CXR impression: No radiographic evidence for acute cardiopulmonary abnormality on this. portable chest x-ray. Gallbladder ultrasound impression: Normal ultrasound of the right upper quadrant. In the ED course the patient was given 4mg IV Morphine at 16:49 and a second 4mg IV Morphine, just prior to discharge. Pt is very reluctant to take any pain medication or medication for her anxiety which she acknowledges. She was also given 1,000 mls at 1,000 mls/hr Sodium Chloride at 16:25, 125 ml Iohexol IV at 18:09 for CTA aorta. Blood work, chemistries and urines obtained. Calcium 10.6, Glucose 105, Magnesium 1.8 at 16: 41. Urine blood 1+, Urine RBC 2+ and Ur Squamous Epith Cells present at 15:57. Troponin of 0.04 at 21:00, was 0.03 on initial bloodwork. Review of prior labs shows that pt always has mildly elevated troponin. Without chest pain or EKG changes, would not consider these troponin levels abnormal for this patient. An EKG at 16:56 reveals nml AV/IV CT, nml QTc, and nml axis. No acute changes. LAD -53. Poor R-wave progression v1 v2 flat St in I and aVL and v3-v6. Compared with 12/15/17 patient is no longer paced. ED MD has reviewed and interpreted this EKG. Aorta w/runoff CTA impression: 1. There is punctate nonobstructing right nephrolithiasis. 2. Stable diverticulosis without diverticulits. 3. 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 Discussed with Dr. Hendrix, who stated that she would not be a candidate for interventional radiology, but she may be a surgical candidate, but is not having acute mesenteric ischemia or infarction at this time. Pt medications reviewed this visit. Nurses notes reviewed. Allergies noted. The patient will be discharged home. Return precautions were given. The patient is agreeable with this plan. - Diagnoses Differential Diagnosis: Positive: Appendicitis, Gall Bladder Disease, Hepatitis , Irritable Bowel Syndrome, Renal Colic Provider Diagnoses: Occlusion of celiac artery, Tobacco abuse disorder, Elevated troponin - Provider Notifications Discussed Care Of Patient With: Ho Hendrix Time Discussed With Above Provider: 17:54 Instructed by Provider To: Other - recommends CTA of aorta with runoff. Discussed management of occluded celiac artery that has retrograde flow. He states she would not be an interventional radiology candidate, but she may be a vascular surgery candidate, and he recommends outpatient referral. Discharge - Sign-Out/Discharge Documenting (check all that apply): Patient Departure - DC Patient Received Moderate/Deep Sedation with Procedure: No - Discharge Plan Condition: Stable Disposition: HOME Patient Education Materials: Acute Abdominal Pain (ED) Referrals: Prashanth Penaloza MD [Medical Doctor] - As Soon As Possible Monica Huffman MD [Medical Doctor] - As Soon As Possible Additional Instructions: We gave you Morphine 4 mg IV tonight twice and you did not have an adverse reaction. We have given you a copy of your CT from 01/24/19 and also your CTA from [facility]. The labs will print out with these discharge papers. Dr. Ramsay spoke with Dr. Hendrix, and Dr. Hendrix reviewed the images of your CTA himself. He recommends evaluation with a vascular surgeon. Dr. Ramsay has referred you to Dr. Monica Huffman and you should try to get an appointment with her as soon as possible. Dr. Ramsay also recommends that you should take your oxycodone (a full tablet) at least once a day at bedtime. She also recommends that you not eat any foods that are hard for you to digest. And she wants you to check your weight daily. She also recommends that you try to figure out if it is better for you to eat one meal a day, or multiple small meals per day, as far as your pain. Please return to the ER if you have any new or worsening symptoms. - Billing Disposition and Condition Condition: STABLE Disposition: Home - Attestation Statements Document Initiated by Daiana: Yes Documenting Scribe: Wang Jensen Provider For Whom Daiana is Documenting (Include Credential): Dr. Shiloh Ramsay MD Scribe Attestation: IWang, scribed for Dr. Shiloh Ramsay MD on 01/29/19 at 0152. Scribe Documentation Reviewed: Yes Provider Attestation: The documentation as recorded by the Wang byrne accurately reflects the service I personally performed and the decisions made by me, Dr. Shiloh Ramsay MD Status of Scrfatemeh Document: Viewed Consult Consult: At 21:[address] Hendrix, who will review the CTA and call back. At 21:[address] Hendrix, who said that she would be a surgical candidate but is not having acute mesenteric ischemia at this time.
[2019-01-28] MEDS ORDERED: Morphine 4 MG/ML VIAL (1 ml) 4 MG/ML VIAL IV ONE ×2 (16:49→22:51)
[2019-01-28 16:51] LABS: ABS Basophils 0.1 10^3/ul (0-0.2); ABS Eosinophils 0.1 10^3/ul (0-0.6); ABS Lymphocytes 1.4 10^3/ul (1.0-4.8); ABS Monocytes 0.6 10^3/ul (0-0.8); ABS Neutrophils 4.1 10^3/ul (1.5-7.7); Eosinophil % 2.4 %; Hematocrit 44 % (35-47); Hemoglobin 15.3 g/dL (12.0-16.0); Mean Corpuscular HGB Conc 35 g/dL (31-36); Mean Corpuscular Hemoglobin 33 pg (27-31); Mean Corpuscular Volume 95 fL (80-97); Mean Platelet Volume 7.9 fL (7.4-10.4); Platelet Count 220 10^3/uL (150-450); Red Blood Count 4.66 10^6 /uL (3.70-4.87); Red Cell Distribution Width 14 % (10-15); White Blood Count 6.2 10^3/uL (3.5-10.8)
[2019-01-28 17:00] LABS: Activated Partial Thrombo Time 33.2 seconds (26.0-38.0); INR 0.94 (0.82-1.09)
[2019-01-28 17:02] LABS: Urine Appearance Cloudy; Urine Bacteria Absent (Absent); Urine Bilirubin Negative (Negative); Urine Blood 1+ (Negative); Urine Color Yellow; Urine Glucose Negative (Negative); Urine Ketones Negative (Negative); Urine Nitrite Negative (Negative); Urine Protein Negative (Negative); Urine Red Blood Cell 2+(6-10/hpf) (Absent); Urine Specific Gravity 1.016 (1.010-1.030); Urine Squamous Epithelial Cell Present (Absent); Urine Urobilinogen Negative (Negative); Urine White Blood Cell Trace(0-5/hpf) (Absent)
[2019-01-28 17:08] LABS: Albumin 4.3 g/dL (3.2-5.2); Albumin/Globulin Ratio 1.4 (1-3); BUN/Creatinine Ratio 19.7 (8-20); C Reactive Protein 5.38 mg/L (<8.01); Calcium 10.6 mg/dL (8.6-10.3); EGFR African American 95.4 (>60); EGFR Non-African American 78.8 (>60); Globulin 3.1 g/dL (2-4); Magnesium 1.8 mg/dL (1.9-2.7); Potassium 4.3 mmol/L (3.5-5.0); Total Bilirubin 0.4 mg/dL (0.2-1.0); Total Protein 7.4 g/dL (6.4-8.9)
[2019-01-28] MEDS ORDERED: Iohexol 350* (CONTRAST) 500 ML MDV IV ONE (18:09)
[2019-01-28 21:31] LABS: Troponin I 0.04 ng/mL (<0.04)
[2019-01-28 22:11] LABS: Troponin I 0.03 ng/mL (<0.04)
[2019-01-28 23:45] VITALS: BP 165/80
== END 2019-01-28 23:43 | disposition home or self-care (01) ==
LOC: ED 14:51
DX: I77.4 Celiac artery compression syndrome (principal); R79.89 Other specified abnormal findings of blood chemistry; N20.0 Calculus of kidney; K57.30 Diverticulosis of large intestine without perforation or abscess without bleeding; R23.3 Spontaneous ecchymoses; R10.11 Right upper quadrant pain; R10.13 Epigastric pain; F41.9 Anxiety disorder, unspecified; I10 Essential (primary) hypertension; Z79.82 Long term (current) use of aspirin; Z95.810 Presence of automatic (implantable) cardiac defibrillator; Z86.711 Personal history of pulmonary embolism; Z79.01 Long term (current) use of anticoagulants; Z95.5 Presence of coronary angioplasty implant and graft; Z88.8 Allergy status to other drugs, medicaments and biological substances; F17.210 Nicotine dependence, cigarettes, uncomplicated
CPT/HCPCS: 36415; 71045; 75635; 76705; 80053; 81003; 81015; 82150; 82550; 83605; 83690; 83735; 83880; 84484; 85025; 85610; 85730; 86140; 87086; 93005; 96361; 96374; 96376; 99283; J2270; Q9967

== ENCOUNTER 2022-05-31 22:33 | Inpatient (IN) ==
[2022-06-01 00:23] LABS: ABS Basophils 0.1 10^3/ul (0-0.2); ABS Eosinophils 0.2 10^3/ul (0-0.6); ABS Lymphocytes 1.2 10^3/ul (1.0-4.8); ABS Monocytes 0.5 10^3/ul (0-0.8); Eosinophil % 3.3 %; Hematocrit 40 % (35-47); Hemoglobin 13.4 g/dL (12.0-16.0); Lymphocyte % 19.4 %; Mean Corpuscular HGB Conc 34 g/dL (31-36); Mean Corpuscular Hemoglobin 33 pg (27-31); Mean Corpuscular Volume 98 fL (80-97); Mean Platelet Volume 7.6 fL (7.4-10.4); Platelet Count 173 10^3/uL (150-450); Red Blood Count 4.09 10^6 /uL (3.70-4.87); Red Cell Distribution Width 14 % (10-15); White Blood Count 5.9 10^3/uL (3.5-10.8)
[2022-06-01 00:36] LABS: INR 1.16 (0.89-1.11)
[2022-06-01 00:57] LABS: Albumin 4.4 g/dL (3.2-5.2); Albumin/Globulin Ratio 1.6 (1-3); C Reactive Protein 23.61 mg/L (<8.01); Calcium 9.1 mg/dL (8.6-10.3); Globulin 2.7 g/dL (2-4); Potassium 4.1 mmol/L (3.5-5.0); Total Bilirubin 0.5 mg/dL (0.2-1.0); Total Protein 7.1 g/dL (6.4-8.9)
[2022-06-01] MEDS ORDERED: Vancomycin 1,000 MG in NS 0.9% 250 ml 250 ML IVPB ONE (03:30)
[2022-06-01] MEDS ORDERED: Piperacillin/Tazobac ADVAN 3.375 GM in NS 0.9% 100 ml BAG 100 ML IV ONE (03:30)
[2022-06-01 04:55] LABS: Urine Appearance Cloudy; Urine Bilirubin Negative (Negative); Urine Blood 1+ (Negative); Urine Color Yellow; Urine Glucose Negative (Negative); Urine Ketones Negative (Negative); Urine Nitrite Negative (Negative); Urine Protein Negative (Negative); Urine Specific Gravity 1.009 (1.002-1.030); Urine Urobilinogen Negative (Negative)
[2022-06-01 05:39] LABS: ABS Basophils 0.1 10^3/ul (0-0.2); ABS Eosinophils 0.2 10^3/ul (0-0.6); ABS Lymphocytes 1.4 10^3/ul (1.0-4.8); ABS Monocytes 0.4 10^3/ul (0-0.8); ABS Neutrophils 2.8 10^3/ul (1.5-7.7); Eosinophil % 4.5 %; Hematocrit 38 % (35-47); Hemoglobin 12.8 g/dL (12.0-16.0); Lymphocyte % 27.9 %; Mean Corpuscular HGB Conc 34 g/dL (31-36); Mean Corpuscular Hemoglobin 33 pg (27-31); Mean Corpuscular Volume 97 fL (80-97); Mean Platelet Volume 7.7 fL (7.4-10.4); Nucleated Red Blood Cells % 0.1; Platelet Count 168 10^3/uL (150-450); Red Blood Count 3.93 10^6 /uL (3.70-4.87); Red Cell Distribution Width 14 % (10-15); White Blood Count 4.9 10^3/uL (3.5-10.8)
[2022-06-01 05:47] LABS: Urine Bacteria 1+ (Absent); Urine Squamous Epithelial Cell Present (Absent); Urine White Blood Cell Trace(0-5/hpf) (Absent)
[2022-06-01 06:18] LABS: Albumin 3.9 g/dL (3.2-5.2); Albumin/Globulin Ratio 1.7 (1-3); Calcium 8.8 mg/dL (8.6-10.3); Globulin 2.3 g/dL (2-4); Total Bilirubin 0.7 mg/dL (0.2-1.0); Total Protein 6.2 g/dL (6.4-8.9); eGFR CKD-EPI 87.2 (>60)
[2022-06-01] MEDS: Phenytoin 100 mg ER CAP PO SCH ×2 (09:12→20:10)
[2022-06-01] MEDS: Aspirin EC 81 mg TAB.EC (enteric coated) PO SCH (09:12)
[2022-06-01] MEDS: cefTRIAXone VIAL 1,000 MG in NS 0.9% 50 ML 50 ML IVPB SCH (10:06)
[2022-06-01] MEDS: metroNIDAZOLE IV 500 MG/100ML 500 MG/100 ML BAG IVPB SCH ×2 (10:37→23:10)
[2022-06-01] MEDS ORDERED: Thiamine 100 MG/ML 2 ml VIAL (200 mg) IM ONE (15:08)
[2022-06-01] MEDS: Multivitamins/Minerals TAB PO SCH (16:04)
[2022-06-01] MEDS: Vancomycin 750 MG in NS 0.9% 250 ML IVPB SCH (18:18)
[2022-06-02] MEDS ORDERED: Vancomycin per Pharmacy 1 EA NOTE FOLLOW UP SCH (05:00)
[2022-06-02] MEDS: Vancomycin 750 MG in NS 0.9% 250 ML IVPB SCH (05:44)
[2022-06-02 06:45] LABS: Hematocrit 37 % (35-47); Hemoglobin 12.5 g/dL (12.0-16.0); Mean Corpuscular HGB Conc 34 g/dL (31-36); Mean Corpuscular Hemoglobin 33 pg (27-31); Mean Corpuscular Volume 97 fL (80-97); Mean Platelet Volume 7.7 fL (7.4-10.4); Platelet Count 179 10^3/uL (150-450); Red Blood Count 3.84 10^6 /uL (3.70-4.87); Red Cell Distribution Width 14 % (10-15); White Blood Count 5.5 10^3/uL (3.5-10.8)
[2022-06-02 07:01] LABS: Calcium 8.5 mg/dL (8.6-10.3); Potassium 4.2 mmol/L (3.5-5.0); eGFR CKD-EPI 84.7 (>60)
[2022-06-02] MEDS: Multivitamins/Minerals TAB PO SCH (09:05)
[2022-06-02] MEDS: Phenytoin 100 mg ER CAP PO SCH (09:06)
[2022-06-02] MEDS: Aspirin EC 81 mg TAB.EC (enteric coated) PO SCH (09:06)
[2022-06-02] MEDS: cefTRIAXone VIAL 1,000 MG in NS 0.9% 50 ML 50 ML IVPB SCH (10:52)
[2022-06-02 11:31] VITALS: BP 122/77
[2022-06-02] MEDS ORDERED: cefTRIAXone 1 gm/50 mL D5W 1 GM/50 ML BAG IV ONE (13:30)
[2022-06-03] MEDS ORDERED: Vancomycin Trough Check NOTE FOLLOW UP ONE (05:30)
== END 2022-06-02 15:30 | disposition home or self-care (01) | DRG 603 ==
LOC: ED 22:33 → SUATTDRO 06-01 04:25 → EDHOLD 06-01 04:25 → SSU 06-01 07:30
PROVIDERS: ADMIT Hospitalist; ATTEND Internal Medicine

== ENCOUNTER 2023-08-08 12:43 | Inpatient (IN) ==
[2023-08-08 14:38] LABS: ABS Lymphocytes 0.5 10^3/uL (1.0-4.8); ABS Monocytes 0.8 10^3/uL (0.0-0.9); ABS Neutrophils 6.6 10^3/uL (1.5-7.6); ABS Nucleated RBC 0.02 10^3/ul; Eosinophil % 0.2 %; Hematocrit 46.8 % (35-45); Lymphocyte % 6.6 %; Mean Corpuscular Hemoglobin 32.4 pg (27-33); Mean Corpuscular Hgb Conc 34.2 g/dL (31-36); Mean Corpuscular Volume 94.6 fL (80-97); Mean Platelet Volume 7.7 fL (7.5-11.2); Nucleated Red Blood Cells % 0.2 %/100WBC (0.0-0.8); Platelet Count 240 10^3/uL (150-450); Red Blood Count 4.94 10^6/uL (3.63-4.92); Red Cell Distribution Width 13.7 % (12-17); White Blood Count 7.9 10^3/uL (3.8-11.8)
[2023-08-08 14:57] LABS: Albumin 4.3 g/dL (3.2-5.2); Albumin/Globulin Ratio 1.2 (1-3); Calcium 9.5 mg/dL (8.6-10.3); Creatinine, Serum 0.61 mg/dL (0.51-0.95); Globulin 3.5 g/dL (2-4); Potassium 3.8 mmol/L (3.5-5.0); Total Bilirubin 0.6 mg/dL (0.2-1.0); Total Protein 7.8 g/dL (6.4-8.9)
[2023-08-08] MEDS ORDERED: Furosemide 40 mg/4 ml IV VIAL IV ONE (15:43)
[2023-08-08] MEDS ORDERED: Metoprolol Tartrate 5 mg VIAL 5 ml VIAL (1 mg/ml) IV ONE (15:43)
[2023-08-08 17:36] LABS: C Reactive Protein 157.5 mg/L (<8.01); Magnesium 1.8 mg/dL (1.9-2.7)
[2023-08-08] MEDS: Albuterol/Ipratropium NEB.SOL (2.5/0.5 MG) 3 ML NEB.SOLN INH SCH ×2 (18:20→23:02)
[2023-08-08] MEDS ORDERED: cefTRIAXone 1 gm/50 mL D5W 1 GM/50 ML BAG IV SCH (18:30)
[2023-08-08] MEDS ORDERED: Magnesium Sulfate 2 gm BAG 2 GM/50 ML BAG IVPB ONE (18:32)
[2023-08-08] MEDS ORDERED: Potassium Chlor 20 meq TAB.ER PO ONE (18:33)
[2023-08-08] MEDS ORDERED: Phenytoin 100 mg ER CAP PO PRN (19:02)
[2023-08-08] MEDS: Tiotropium Brom/Olodaterol MDI (ACUTE) INH SCH (19:44)
[2023-08-09] MEDS: Albuterol/Ipratropium NEB.SOL (2.5/0.5 MG) 3 ML NEB.SOLN INH SCH ×6 (03:47→19:25)
[2023-08-09 06:05] LABS: ABS Lymphocytes 0.8 10^3/uL (1.0-4.8); ABS Monocytes 0.9 10^3/uL (0.0-0.9); ABS Neutrophils 6.8 10^3/uL (1.5-7.6); Eosinophil % 0.5 %; Hematocrit 39.2 % (35-45); Hemoglobin 13.6 g/dL (11.5-14.3); Lymphocyte % 8.9 %; Mean Corpuscular Hemoglobin 32.8 pg (27-33); Mean Corpuscular Hgb Conc 34.8 g/dL (31-36); Mean Corpuscular Volume 94.2 fL (80-97); Mean Platelet Volume 7.6 fL (7.5-11.2); Platelet Count 225 10^3/uL (150-450); Red Blood Count 4.16 10^6/uL (3.63-4.92); Red Cell Distribution Width 13.7 % (12-17); White Blood Count 8.5 10^3/uL (3.8-11.8)
[2023-08-09 06:17] LABS: Calcium 8.7 mg/dL (8.6-10.3); Creatinine, Serum 0.53 mg/dL (0.51-0.95); Magnesium 2.2 mg/dL (1.9-2.7); Potassium 4.1 mmol/L (3.5-5.0)
[2023-08-09 06:59] LABS: Osmolality Serum 270 mOsm/kg (275-295)
[2023-08-09] MEDS: Tiotropium Brom/Olodaterol MDI (ACUTE) INH SCH (07:03)
[2023-08-09] MEDS: Aspirin EC 81 mg TAB.EC (enteric coated) PO SCH (08:00)
[2023-08-09 19:38] LABS: Urine Sodium Concentration 24 mmol/L; Urine Sodium/24 Hour 52 mmol/24 (40-220)
[2023-08-09 20:12] LABS: Urine Osmo 237 mOsm/kg (150-1150)
[2023-08-09] MEDS: Phenytoin 100 mg ER CAP PO SCH (20:22)
[2023-08-10] MEDS: Albuterol/Ipratropium NEB.SOL (2.5/0.5 MG) 3 ML NEB.SOLN INH SCH ×5 (00:32→19:14)
[2023-08-10 06:26] LABS: ABS Eosinophils 0.1 10^3/uL (0.0-0.5); ABS Monocytes 1.1 10^3/uL (0.0-0.9); ABS Neutrophils 6.6 10^3/uL (1.5-7.6); Eosinophil % 0.7 %; Hematocrit 38.3 % (35-45); Hemoglobin 13.3 g/dL (11.5-14.3); Mean Corpuscular Hemoglobin 32.8 pg (27-33); Mean Corpuscular Hgb Conc 34.8 g/dL (31-36); Mean Corpuscular Volume 94.3 fL (80-97); Mean Platelet Volume 7.1 fL (7.5-11.2); Platelet Count 242 10^3/uL (150-450); Red Blood Count 4.06 10^6/uL (3.63-4.92); Red Cell Distribution Width 13.6 % (12-17); White Blood Count 8.7 10^3/uL (3.8-11.8)
[2023-08-10] MEDS: Tiotropium Brom/Olodaterol MDI (ACUTE) INH SCH (07:47)
[2023-08-10 07:51] LABS: Creatinine, Serum 0.55 mg/dL (0.51-0.95); eGFR CKD-EPI 89.2 (>60)
[2023-08-10] MEDS: Aspirin EC 81 mg TAB.EC (enteric coated) PO SCH (08:03)
[2023-08-10] MEDS: Phenytoin 100 mg ER CAP PO SCH ×2 (08:03→19:58)
[2023-08-10] MEDS: Cefepime 2 GM in Dextrose 2 GM/50 ML BAG IV SCH (16:03)
[2023-08-11] MEDS: Albuterol/Ipratropium NEB.SOL (2.5/0.5 MG) 3 ML NEB.SOLN INH SCH ×4 (01:22→19:18)
[2023-08-11] MEDS: Cefepime 2 GM in Dextrose 2 GM/50 ML BAG IV SCH ×2 (03:32→16:01)
[2023-08-11] MEDS: Aspirin EC 81 mg TAB.EC (enteric coated) PO SCH (08:49)
[2023-08-11] MEDS: Phenytoin 100 mg ER CAP PO SCH ×2 (08:49→20:55)
[2023-08-11 09:00] LABS: Hematocrit 40.3 % (35-45); Hemoglobin 14.2 g/dL (11.5-14.3); Mean Corpuscular Hemoglobin 33.1 pg (27-33); Mean Corpuscular Hgb Conc 35.2 g/dL (31-36); Mean Corpuscular Volume 94.1 fL (80-97); Platelet Count 323 10^3/uL (150-450); Red Blood Count 4.28 10^6/uL (3.63-4.92); Red Cell Distribution Width 13.7 % (12-17); White Blood Count 9.1 10^3/uL (3.8-11.8)
[2023-08-11 09:18] LABS: Calcium 9.6 mg/dL (8.6-10.3); Creatinine, Serum 0.61 mg/dL (0.51-0.95); Potassium 4.1 mmol/L (3.5-5.0)
[2023-08-11] MEDS ORDERED: Benzocaine/Menthol LOZ PO PRN (16:31)
[2023-08-12] MEDS: Albuterol/Ipratropium NEB.SOL (2.5/0.5 MG) 3 ML NEB.SOLN INH SCH ×3 (00:36→15:02)
[2023-08-12] MEDS: Cefepime 2 GM in Dextrose 2 GM/50 ML BAG IV SCH (04:20)
[2023-08-12] MEDS ORDERED: Nicotine PATCH 7 MG/24 HR PATCH TRANSDERM SCH (05:00)
[2023-08-12 05:50] LABS: Hematocrit 39.3 % (35-45); Hemoglobin 13.6 g/dL (11.5-14.3); Mean Corpuscular Hemoglobin 32.6 pg (27-33); Mean Corpuscular Hgb Conc 34.6 g/dL (31-36); Mean Corpuscular Volume 94.2 fL (80-97); Mean Platelet Volume 6.8 fL (7.5-11.2); Platelet Count 322 10^3/uL (150-450); Red Blood Count 4.18 10^6/uL (3.63-4.92); Red Cell Distribution Width 14.1 % (12-17); White Blood Count 7.6 10^3/uL (3.8-11.8)
[2023-08-12 07:01] LABS: Calcium 9.2 mg/dL (8.6-10.3); Creatinine, Serum 0.62 mg/dL (0.51-0.95); Magnesium 1.9 mg/dL (1.9-2.7); Potassium 4.5 mmol/L (3.5-5.0); eGFR CKD-EPI 86.7 (>60)
[2023-08-12] MEDS: Aspirin EC 81 mg TAB.EC (enteric coated) PO SCH (08:29)
[2023-08-12] MEDS: Phenytoin 100 mg ER CAP PO SCH (08:32)
[2023-08-12] MEDS ORDERED: Magnesium Hydroxide LIQ 30 ML UDC PO ONE (10:24)
[2023-08-12 14:06] VITALS: BP 121/83
== END 2023-08-12 15:45 | disposition home or self-care (01) | DRG 177 ==
LOC: ED 12:43 → EDHOLD 12:43 → SUATTDRO 16:54 → MEDTELE 17:49 → SUATTDRO 08-09 12:23
PROVIDERS: ADMIT Hospitalist; ATTEND Internal Medicine